=== PATIENT | female | born 1940 | race Caucasian/White ===

== ENCOUNTER 2020-01-17 12:15 | Outpatient (CLI) | payer OTHER, SELFPAY ==
[2020-01-17 13:08] LABS: Basophils Absolute Auto 0.1 K/mm3 (0.0-0.1); Basophils Percent Auto 0.7 % (0.2-1.2); Eosinophils Absolute Auto 0.2 K/mm3 (0-0.3); Hematocrit 33.6 % (37.0-47.0); Hemoglobin 10.2 g/dL (12.0-15.0); Immature Granulocyte Absolute 0.07 K/mm3 (0.00-0.031); Immature Granulocyte Percent A 0.7 % (0-0.5); Lymphocytes Absolute Auto 2.24 K/mm3 (0.9-3.2); Lymphocytes Percent Auto 23.5 % (18.3-44.2); Mean Corpuscular HGB Conc 30.4 g/dl (32-36); Mean Corpuscular Hemoglobin 29.7 pg (26-34); Mean Corpuscular Volume 97.7 fl (80-100); Mean Platelet Volume 9.3 fl (7.4-10.4); Monocytes Absolute Auto 0.8 K/mm3 (0.1-0.6); Monocytes Percent Auto 8.6 % (2.6-8.5); Neutrophils Absolute Auto 6.2 K/mm3 (1.3-6.7); Neutrophils Percent Auto 64.5 % (45.5-73.1); Platelet Count Result 460 k/mm3 (150-375); Red Blood Count 3.44 M/mm3 (4.2-5.4); Red Cell Distribution Width 13.2 % (11.5-14.5); White Blood Count 9.5 K/mm3 (4.5-10.0)
[2020-01-17 13:19] LABS: Alanine Aminotransferase 10 U/L (4-35); Albumin Level 4.3 g/dL (3.5-5.1); Alkaline Phosphatase 54 U/L (38-126); Aspartate Amino Transferase 17 U/L (14-36); Bilirubin,Total 0.3 mg/dL (0.2-1.3); Blood Urea Nitrogen 21 mg/dL (7-17); Calcium 9.7 mg/dL (8.4-10.2); Carbon Dioxide 25 mmol/L (22-30); Chloride 95 mmol/L (98-107); Estimated Glomerular Filt Rate 53; Glucose 123 mg/dL (65-105); Potassium 4.2 mmol/L (3.4-5.0); Sodium 138 mmol/L (137-145)
[2020-01-17 13:23] LABS: Hemoglobin A1C 6.1 % (<5.7)
== END 2020-01-17 12:16 | disposition home or self-care (01) ==
PROVIDERS: PCP Family Medicine; Visit Provider Family Medicine
DX: E11.40 Type 2 diabetes mellitus with diabetic neuropathy, unspecified (principal); I10 Essential (primary) hypertension
CPT/HCPCS: 36415; 80053; 83036; 85025

== ENCOUNTER 2020-01-24 16:19 | Inpatient (IN) | payer OTHER, SELFPAY ==
--- NOTE | ~2020-01-24 | CT_ITS ---
EXAMINATION: CT abdomen pelvis w con EXAM DATE: 01/24/2020 19:58 INDICATION: Left lower quadrant pain. Diarrhea. TECHNIQUE: Spiral CT of the abdomen and pelvis was performed following intravenous injection of 100 m L Omnipaque 350. Axial, coronal and sagittal images were reviewed. The dose-length product (DLP) fo r this examination was 321.30 mGy-cm. The exposure was tailored according to patient size (auto mA e xposure control), and iterative reconstruction (ASIR) was used as additional dose reduction technique . Comparison is made to prior examination from 11/18/2014. FINDINGS: The liver, spleen, adrenal glands and pancreas are unremarkable. Some dense layering fluid in the gallbladder which is otherwise unremarkable. Portal vein measures 18 mm in diameter, dilated. This could indicate portal hypertension. Portal and splenic veins are patent. Kidneys enhance symme trically. There is no hydronephrosis. The uterus is not identified and has likely been surgically resected. The bladder is collapsed at time of imaging limiting evaluation. There is no retroperiton eal or pelvic lymphadenopathy. There is moderate scattered arteriosclerotic disease. Pain pump. The appendix is not positively visualized. There is no pericecal inflammatory change to suggest appe ndicitis. There are surgical changes consistent with Niesen fundoplication. Moderately distended rectal vault up to 7 cm with fluid in the sigmoid colon proximal to this. There is extensive sigmoid predominant colonic diverticulosis. There is no adjacent inflammatory change to suggest diverticulit is. No free intraperitoneal gas. The heart is normal in size. There are no pericardial or pleural effusions. The lung bases are unremarkable. There are no osteoblastic or osteolytic lesions identi fied. Chronic degenerative bone changes. IMPRESSION: 1. Moderately distended rectal vault with stool, colonic fluid proximal to this. 2. Extensive colonic diverticulosis. Reviewed, dictated and finalized at location A. N PRODUCER IMPRESSION: 1. Moderately distended rectal vault with stool, colonic fluid proximal to thi s. 2. Extensive colonic diverticulosis.
[2020-01-24 17:03] VITALS: BP 158/65; PULSE 108; RESP 18; TEMP 36.6; O2SAT 100
[2020-01-24 17:15] LABS: Basophils Absolute Auto 0.1 K/mm3 (0.0-0.1); Basophils Percent Auto 0.6 % (0.2-1.2); Eosinophils Percent Auto 0.3 % (0-4.4); Hemoglobin 10.3 g/dL (12.0-15.0); Immature Granulocyte Absolute 0.08 K/mm3 (0.00-0.031); Immature Granulocyte Percent A 0.6 % (0-0.5); Lymphocytes Absolute Auto 1.59 K/mm3 (0.9-3.2); Lymphocytes Percent Auto 11.2 % (18.3-44.2); Mean Corpuscular HGB Conc 31.2 g/dl (32-36); Mean Corpuscular Hemoglobin 30.1 pg (26-34); Mean Corpuscular Volume 96.5 fl (80-100); Mean Platelet Volume 8.9 fl (7.4-10.4); Monocytes Percent Auto 6.9 % (2.6-8.5); Neutrophils Absolute Auto 11.4 K/mm3 (1.3-6.7); Neutrophils Percent Auto 80.4 % (45.5-73.1); Platelet Count Result 489 k/mm3 (150-375); Red Blood Count 3.42 M/mm3 (4.2-5.4); Red Cell Distribution Width 13.3 % (11.5-14.5); White Blood Count 14.2 K/mm3 (4.5-10.0)
[2020-01-24 17:23] LABS: Alanine Aminotransferase 12 U/L (4-35); Albumin Level 4.5 g/dL (3.5-5.1); Alkaline Phosphatase 57 U/L (38-126); Aspartate Amino Transferase 16 U/L (14-36); Bilirubin,Total 0.3 mg/dL (0.2-1.3); Blood Urea Nitrogen 24 mg/dL (7-17); Calcium 10.5 mg/dL (8.4-10.2); Carbon Dioxide 32 mmol/L (22-30); Chloride 98 mmol/L (98-107); Estimated Glomerular Filt Rate 48; Glucose 147 mg/dL (65-105); Lipase 20 U/L (23-300); Potassium 4.7 mmol/L (3.4-5.0); Sodium 143 mmol/L (137-145)
--- NOTE | 2020-01-24 18:37 | PC.NURSE ---
Pt states since yesterday she has had diarrhea. Pt states she has had several episodes and can not make it to the bathroom in time. Pt states she has no nausea or vomiting. Pt states she has abd cramping and then diarrhea happens and pain stops. Pt states immodium did not stop or slow down the diarrhea. Pt is A&Ox4. Pt appears in NAD. Pt has family at bedside. Pt BSx4. Pt abd soft, non tender and non distended.
--- NOTE | 2020-01-24 18:53 | ED.NAVMDI ---
HPI - Nausea/Vomiting/Diarrhea General Chief complaint: Nausea/Vomiting/Diarrhea Stated complaint: diarrhea Time Seen by Provider: 01/24/20 18:45 Source: patient, family and RN notes reviewed Mode of arrival: other Limitations: no limitations History of Present Illness HPI Narrative: Pt is an 79 y/o female who presents to the ED with c/o diarrhea that began yesterday. She describes her diarrhea as dark in color. Pt denies any recent abx use, being around sick contacts, and taking any medication for her sx. Pt has a scheduled colonoscopy with Dr. Seay, but she states that she has not started the medication to prepare for the colonoscopy. Pt went to her PCP today for a regular appointment. Pt also reports fecal incontinence, but denies blood in her stools, weakness, syncope, and lightheadedness. elicited complaint: diarrhea Onset (ago): day(s) (1) Description of vomiting: none Description of diarrhea: other (dark in color) Associated nausea: No Associated abdominal pain: No Location of pain: none Associated symptoms: fecal incontinence Treatment prior to arrival: none Related Data Home Medications Medication Instructions Recorded Confirmed bupropion HCl 150 mg tablet,12 hr 150 mg PO QAM 11/23/19 11/25/19 sustained-release cetirizine 10 mg tablet 5 mg PO DAILY PRN 11/23/19 11/25/19 cilostazol 100 mg tablet 100 mg PO BID 11/23/19 11/25/19 ergocalciferol (vitamin D2) 1,250 1,250 mcg PO WEEKLY 11/23/19 11/25/19 mcg (50,000 unit) capsule hydrocodone 10 mg-acetaminophen 1 tablet PO Q8H PRN 11/23/19 11/25/19 325 mg tablet levothyroxine 75 mcg tablet 75 mcg PO DAILY 11/23/19 11/25/19 lisinopril 40 mg tablet 40 mg PO DAILY 11/23/19 11/25/19 meclizine 25 mg tablet 25 mg PO BID 11/23/19 11/25/19 pen needle, diabetic 31 gauge x #30 each 11/23/19 11/25/19 5/16 sertraline 25 mg tablet 25 mg PO DAILY 11/23/19 11/25/19 trazodone 50 mg tablet 50 mg PO TID 11/23/19 11/25/19 Allergies Allergy/AdvReac Type Severity Reaction Status Date / Time No Known Allergies Allergy Verified 01/24/20 17:06 Review of Systems Review of Systems: All systems reviewed & are unremarkable except as noted in HPI and below Cardiovascular: Cardiovascular: Denies lightheadedness Gastrointestinal: Gastrointestinal: Denies hematochezia, Reports diarrhea and Reports other (fecal incontinence) Neurologic: Denies syncope and Denies weakness REPLACED BY [facility] Past Medical History Medical History (Updated 01/24/20 @ 20:42 by Tim Dee MD) Abdominal pain Abnormality of gait and mobility Arteriosclerosis of both carotid arteries Arthritis Benign reactive hypertension Breast cancer Cerebral atherosclerosis Chronic intractable pain CVA (cerebrovascular accident) DDD (degenerative disc disease) Depression Fusion of lumbar spine GERD (gastroesophageal reflux disease) HTN (hypertension) Hyperlipidemia Iron deficiency anemia secondary to blood loss (chronic) Neutropenia Opioid dependence Osteoporosis Peripheral vascular disease, unspecified Physical debility Pneumonia Presence of intrathecal pump Seasonal allergies Spinal stenosis Type 2 diabetes mellitus with diabetic polyneuropathy UTI (urinary tract infection) Surgical History Surgical History (Updated 01/24/20 @ 19:50 by Dyan Collado) H/O abdominal surgery pain pump on left abdomen H/O left mastectomy History of bladder surgery bladder suspension History of hysterectomy History of spinal surgery x2 on lumbar spine, x2 on cervical spine History of total knee arthroplasty bilateral Family History Family History (Updated 09/02/15 @ 10:06 by DOCTOR UNKNOWN) Mother Patient's mother is Father Patient's father is Other Family history of cardiovascular disease Family history of heart disease in male family member before age 55 Hypertension Social History Social History (Updated 01/17/20 @ 11:14 by Davina Machado) So
[2020-01-24] MEDS: SODIUM CHLORIDE 0.9% IV 1,000 ML 999 ML IV CONT (19:14)
--- NOTE | 2020-01-24 19:34 | PC.NURSE ---
Patient incont mod watery brown stool, patient given bassam care and linen change.
[2020-01-24 19:35] VITALS: BP 174/90; PULSE 91; RESP 18; O2SAT 97
[2020-01-24 19:53] LABS: Add Urine Microscopic? YES; Appearance Urine Clear (Clear); Bacteria Urine 2+ /hpf; Bilirubin Urine Negative (Negative); Blood Urine 1+ (Negative); Color Urine Yellow (Yellow); Glucose Urine UA Negative (Negative); Ketones Urine Trace mg/dL (Negative); Leukocyte Esterase Ur 1+ LEU/UL (Negative); Mucus Urine Rare /lpf; Nitrate Urine Positive (Negative); Protein Urine 2+ mg/dL (Negative); Squamous Epithelial Cell Urine Rare /hpf (Few); Urobilinogen Urine Negative mg/dL (<2.0); WBC Urine 16-20 /hpf
[2020-01-24 19:54] LABS: Specific Grav Ur 1.032 (1.001-1.035)
[2020-01-24 19:58] LABS: IFOB Positive Control Positive; Immunochemical Fecal Occult Bl Negative (N)
[2020-01-24] MEDS: LOPERAMIDE HCL 2 MG CAPSULE 4 MG PO (20:56)
--- NOTE | 2020-01-24 22:03 | PC.NURSE ---
Patient update given to Eileen RAMAN at assisted and patient being admitted to hospital.
[2020-01-24 22:15] VITALS: BP 169/87; PULSE 84; RESP 14; O2SAT 96
--- NOTE | 2020-01-24 22:24 | PC.NURSE ---
Patient report faxed to med-surg 3rd foor.
[2020-01-24 22:57] VITALS: BP 163/84; PULSE 82; RESP 16; O2SAT 96
[2020-01-24 23:10] VITALS: BP 179/83; PULSE 76; RESP 18; TEMP 36.7; O2SAT 98; BMI 20.1
--- NOTE | 2020-01-24 23:15 | ADMGEN ---
This patient, Brandi Shepherd, was admitted to 3 Med Surg Room 317-02 at 2305. Patient/family oriented to hospital policies and general routines including ID bracelet, bed and alarms, visiting hours, pain management, procedures, bathroom and other care routines, personal items, smoking policy, room service/diet, and visiting hours. Valuables list has been completed. Information on how to activate the Rapid Response Team has been discussed. Patient/Family are encouraged to report perceived risks to care and to ask questions if they do not understand what they are told or what they should do.
[2020-01-25] VITALS (9 sets, daily range): BP systolic 168–180; BP diastolic 78–85; PULSE 64–88; RESP 16–18; TEMP 36.6–36.8; O2SAT 95–99
[2020-01-25] MEDS: LACTATED RINGERS 1,000 ML 150 ML IV CONT ×2 (00:20→11:08)
[2020-01-25 08:11] LABS: Glucose Point of Care 134 (65-105)
--- NOTE | 2020-01-25 12:09 | PM.IMHP ---
H&P: HPI History of Present Illness Chief complaint: diarrhea uti dehydration Narrative: Brandi Shepherd is a 79 year old female who presented to the ED for fecal incontinence and diarrhea. The patient states she has been having diarrhea on and off for a month. She has on average 5-10 bowel movements a day. She does admit to some cramps when this is happening. Before this month, she has not had incontinence before. She went to see Dr. Seay about this and says he ordered her some tests but she was unable to wait and came into the hospital. She says her stool is a little darker brown than normal but has not noticed any black stools or blood. She said she thinks she had a subjective fever 2 days ago but did not take her temperature. She denies nausea, vomiting, shortness of breath, chest pain, sick contacts, travel outside the country, drinking well water, history of C diff, being on antibiotics in the last 3 months, rashes, dysuria or wounds. She says she does not take oral narcotics but has a pain pump with morphine that she gets refilled every 3 months due to chronic back pain. She is a diabetic and cannot tell me her range but says it is usually around 120-180. She lives at home with her son and has not had any recent falls. She usually uses a walker or cane. Pt has some problems recalling information. She does not know when her last colonoscopy was. I called Mehul, her son and [place], and he is unsure and says 'years ago'. He confirms that she has been having worsening problems with memory and likely has undiagnosed dementia. Review of Systems Review of Systems: All systems reviewed & are unremarkable except as noted in HPI and below [facility] Past Medical History Medical History (Updated 01/25/20 @ 12:38 by Lu Orellana PA-C) Abdominal pain Abnormality of gait and mobility Arteriosclerosis of both carotid arteries Arthritis Benign reactive hypertension Breast cancer Cerebral atherosclerosis Chronic intractable pain CVA (cerebrovascular accident) DDD (degenerative disc disease) Depression Dyspepsia Fusion of lumbar spine GERD (gastroesophageal reflux disease) HTN (hypertension) Hyperlipidemia Iron deficiency anemia secondary to blood loss (chronic) Malaise and fatigue Neutropenia Opioid dependence Osteoporosis Overflow incontinence Peripheral vascular disease, unspecified Physical debility Pneumonia Polypharmacy Presence of intrathecal pump Seasonal allergies Spinal stenosis Type 2 diabetes mellitus with diabetic polyneuropathy UTI (urinary tract infection) UTI (urinary tract infection) Surgical History Surgical History H/O abdominal surgery pain pump on left abdomen H/O left mastectomy History of bladder surgery bladder suspension History of hysterectomy History of spinal surgery x2 on lumbar spine, x2 on cervical spine History of total knee arthroplasty bilateral Family History Family History Mother Patient's mother is Father Patient's father is Other Family history of cardiovascular disease Family history of heart disease in male family member before age 55 Hypertension Social History Social History (Updated 01/25/20 @ 12:43 by Lu Orellana PA-C) Social History: Pt lives at home with her Son. She would like Mehul to be her surrogate decision maker if needed. I have spoken to him and he is her POA. Mehul and the patient would like to be a DNR. She does not smoke, drink, or do drugs. 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 smoker Second hand tobacco smoke exposure: No Alcohol intake: never Substance use: never Substance use type: does not use Gender identity (if verbalized by the patient): Female Spiritual care concerns: No Meds Home Medications and Allergies Home Medications Medication Instructions R
[2020-01-25 12:19] LABS: Glucose Point of Care 105 (65-105)
[2020-01-25 16:43] LABS: Glucose Point of Care 202 (65-105)
[2020-01-25] MEDS: LORATADINE 10 MG TABLET PO (18:11)
[2020-01-25] MEDS: polyethylene glycoL 3350 17 GM POWD.PACK PO (18:11)
[2020-01-25] MEDS: METHYLNALTREXONE 12 MG/0.6 ML VIAL SUB-Q (18:11)
[2020-01-25] MEDS: CLONIDINE HCL 0.1 MG TABLET PO ×2 (18:11→20:15)
[2020-01-25] MEDS: ATORVASTATIN 40 MG TABLET PO ×2 (18:17→18:18)
[2020-01-25] MEDS: INSULIN ASPART (*BKC) 100 UNITS/ML SUB-Q (18:20)
[2020-01-25] MEDS: AMITRIPTYLINE HCL 25 MG TABLET PO (20:15)
[2020-01-25] MEDS: TRAZODONE HCL 50 MG TABLET 100 MG PO (20:16)
[2020-01-25 22:16] LABS: Glucose Point of Care 116 (65-105)
[2020-01-26] VITALS (9 sets, daily range): BP systolic 118–195; BP diastolic 56–107; PULSE 61–77; RESP 16–18; TEMP 36.2–36.9; O2SAT 97–98
[2020-01-26] MEDS: LACTATED RINGERS 1,000 ML 150 ML IV CONT (05:48)
[2020-01-26] MEDS: LEVOTHYROXINE SODIUM 75 MCG TABLET PO (05:50)
[2020-01-26 06:29] LABS: Hematocrit 34.7 % (37.0-47.0); Hemoglobin 10.7 g/dL (12.0-15.0); Mean Corpuscular HGB Conc 30.8 g/dl (32-36); Mean Corpuscular Hemoglobin 29.8 pg (26-34); Mean Corpuscular Volume 96.7 fl (80-100); Platelet Count Result 450 k/mm3 (150-375); Red Blood Count 3.59 M/mm3 (4.2-5.4); Red Cell Distribution Width 13.3 % (11.5-14.5)
[2020-01-26 07:00] LABS: Glucose Point of Care 132 (65-105)
[2020-01-26 07:11] LABS: Blood Urea Nitrogen 15 mg/dL (7-17); Calcium 9.7 mg/dL (8.4-10.2); Carbon Dioxide 30 mmol/L (22-30); Chloride 101 mmol/L (98-107); Estimated CRCL calculation 51 ml/min; Estimated Glomerular Filt Rate > 60; Glucose 145 mg/dL (65-105); Potassium 4.1 mmol/L (3.4-5.0); Sodium 138 mmol/L (137-145)
[2020-01-26] MEDS: lisinopriL 20 MG TABLET 40 MG PO (07:51)
[2020-01-26] MEDS: CLONIDINE HCL 0.1 MG TABLET PO ×2 (07:52→20:51)
[2020-01-26] MEDS: LORATADINE 10 MG TABLET PO (07:52)
[2020-01-26] MEDS: METHYLNALTREXONE 12 MG/0.6 ML VIAL SUB-Q (07:55)
[2020-01-26] MEDS: polyethylene glycoL 3350 17 GM POWD.PACK PO ×2 (07:56→18:30)
--- NOTE | 2020-01-26 11:44 | WPDGICN ---
Assessment and Plan Assessment and plan (1) Overflow diarrhea: Code(s): R19.7 - Diarrhea, unspecified Status: Acute Assessment and Plan: history and physical exam consistent with overflow diarrhea. Continue with bowel regimen, she got relistor and removed fecal material from rectum this morning. Will proceed with colonoscopy, she also will need EGD because significant weight loss. (2) Weight loss: Code(s): R63.4 - Abnormal weight loss Status: Acute (3) Constipation: Qualifiers: Constipation type: other constipation type Qualified Code(s): K59.09 - Other constipation Code(s): K59.00 - Constipation, unspecified Status: Acute Assessment and Plan: probably exacerbated by narcotics, continue with medical treatment. (4) Spinal stenosis: Qualifiers: Spinal region: lumbar Neurogenic claudication status: unspecified Qualified Code(s): M48.061 - Spinal stenosis, lumbar region without neurogenic claudication Code(s): M48.00 - Spinal stenosis, site unspecified Status: Acute (5) Opioid dependence: Qualifiers: Substance use status: uncomplicated Qualified Code(s): F11.20 - Opioid dependence, uncomplicated Code(s): F11.20 - Opioid dependence, uncomplicated Status: Acute (6) Iron deficiency anemia secondary to blood loss (chronic): Code(s): D50.0 - Iron deficiency anemia secondary to blood loss (chronic) Status: Acute Assessment and Plan: will also proceed with EGD, no overt GIB, hb stable 10 (7) Colon, diverticulosis: Code(s): K57.30 - Diverticulosis of large intestine without perforation or abscess without bleeding Status: Acute GI Consult Note Consult date/time: 01/26/20 11:44 Reason for consult: bowel incontinence, weight loss HPI: Brandi Shepherd is a 79 year old female with history of DM, memory loss, chronic pain syndrome using narcotis and a pump who I met her just recently in the office because almost 1 month of bowel incontinence and weight loss. She is unsure if ever had scopes, also has chronic anemia with hb ~ 10. I was planning to get a CT scan a/p and also scopes as outpatient but she came to ER because more incontinence and large amount of diarrhea. CT scan showed previous Santiago, moderately distended rectal vault with stool, colonic fluid proximal to this and extensive colonic diverticulosis. She also was found to have UTI and admitted to the hospital. Now she is getting miralax, enema and also relistor. She had a rectal exam that revealed hard stool in rectal vault. She is tolerating diet. Review of Systems Constitutional: Constitutional: Denies headache(s) and Reports weight loss Eyes: Eyes: Denies blurry vision ENT: Reports Normal hearing present, Denies headache(s) and Denies neck pain Cardiovascular: Cardiovascular: Denies chest pain and Denies dyspnea Respiratory: Respiratory: Denies dyspnea Gastrointestinal: Gastrointestinal: Reports loose stools Genitourinary: Genitourinary: Denies dysuria Musculoskeletal: Musculoskeletal: Denies neck pain Integumentary/Breasts: Skin/Breast: Denies dry skin Neurologic: Reports Normal hearing present, Denies headache(s) and Denies weakness Psychiatric: Psychiatric: Denies anxiety Endocrine: Endocrine: Denies change in body appearance Hematologic/Lymphatic: Hematologic/Lymphatic: Denies easy bleeding Allergic/Immunologic: Allergic/Immunologic: Denies urticaria [facility] Past Medical History Medical History (Updated 01/26/20 @ 11:50 by Raymundo Nova MD) Abdominal pain Abnormality of gait and mobility Arteriosclerosis of both carotid arteries Arthritis Benign reactive hypertension Breast cancer Cerebral atherosclerosis Chronic intractable pain Colon, diverticulosis CVA (cerebrovascular accident) DDD (degenerative disc disease) Depression Dyspepsia Fusion of lumbar spine GERD (gastroesophageal reflux d
[2020-01-26 12:51] LABS: Glucose Point of Care 199 (65-105)
--- NOTE | 2020-01-26 13:58 | PM.IMPN ---
Progress Note: A&P Assessment and Plan (1) Constipation: Qualifiers: Constipation type: other constipation type Qualified Code(s): K59.09 - Other constipation Code(s): K59.00 - Constipation, unspecified Status: Acute Assessment and Plan: -----patient appears to be constipated as there is a lot of stool on her CT. She was manually disimpacted earlier today by GI. I believe there is a plan for colonoscopy in the future. Continue MiraLax b.i.d., enema, and relistor since she does get narcotic pain medication through her intrathecal pump. Ifob negative. (2) Overflow diarrhea: Code(s): R19.7 - Diarrhea, unspecified Status: Acute Assessment and Plan: -----see above (3) Pyuria: Code(s): R82.81 - Pyuria Status: Acute Assessment and Plan: -----E coli growing in her urine culture. Not surprising with the amount of diarrhea she has been having. Await sensitivities. Leukocytosis has improved (4) HTN (hypertension) with goal to be determined: Code(s): I10 - Essential (primary) hypertension Status: Acute Assessment and Plan: -----blood pressure persistently elevated last 179/107. Continue home medications. I will start Norvasc tomorrow morning since she is persistently high. hydralazine p.r.n. as needed (5) Presence of intrathecal pump: Code(s): Z97.8 - Presence of other specified devices Status: Acute Assessment and Plan: -----will worsen constipation. Will need routine bowel regimen (6) Opioid dependence: Qualifiers: Substance use status: uncomplicated Qualified Code(s): F11.20 - Opioid dependence, uncomplicated Code(s): F11.20 - Opioid dependence, uncomplicated Status: Acute Assessment and Plan: -----see above. 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 Continue low sliding scale insulin and hypoglycemia protocol (8) Leukocytosis: Code(s): D72.829 - Elevated white blood cell count, unspecified Status: Acute Assessment and Plan: -----resolved. Could be due to possible UTI or acute phase reactant. Will monitor. No signs of septicemia (9) CKD (chronic kidney disease): Code(s): N18.9 - Chronic kidney disease, unspecified Status: Acute Assessment and Plan: -----chronic. (10) Hypothyroid: Code(s): E03.9 - Hypothyroidism, unspecified Status: Acute Assessment and Plan: -----continue levothyroxine. (11) Chronic anemia: Code(s): D64.9 - Anemia, unspecified Status: Acute Assessment and Plan: -----chronic and stable. Continue to monitor and transfuse p.r.n.. Subjective Date/time seen: 01/26/20 13:58 Interval history: Pt is a 79-year-old female here for significant constipation was seen today. Patient states that she still having a lot of diarrhea but no abdominal cramping. She said she saw Dr. Seay this morning and he was able to manually disimpact her and she feels a little better. She is still not having any dysuria for symptoms of UTI. She denies chest pain, fevers, shortness of breath, nausea, vomiting or leg swelling. Exam Narrative: Exam Narrative: General:Well developed well nourished patient resting comfortably in bed in no acute distress HEENT: Normocephalic, atraumatic, PERRL, Sclerae anicteric, oral mucosa moist with poor dentition. Neck: Supple Resp: CTA Heart: RRR. Telemetry shows sinus irregularity with occasional bigeminy A
[2020-01-26] MEDS: INSULIN ASPART (*BKC) 100 UNITS/ML SUB-Q (16:53)
[2020-01-26 17:24] LABS: Glucose Point of Care 220 (65-105)
[2020-01-26] MEDS: AMLODIPINE BESYLATE 5 MG TABLET PO (18:30)
[2020-01-26] MEDS: AMITRIPTYLINE HCL 25 MG TABLET PO (20:51)
[2020-01-26] MEDS: TRAZODONE HCL 50 MG TABLET 100 MG PO (20:58)
[2020-01-26 21:48] LABS: Glucose Point of Care 171 (65-105)
--- NOTE | 2020-01-27 03:35 | PC.NURSE ---
Daylight Savings Time For Daylight Savings Time Ending in the Fall - Clocks are moved back. For Daylight Savings Time Beginning in the Spring - Clocks are moved ahead. For [facility], the time of change occurs at 0200 hrs. Time is taken from the medical observer. This entry on the patient's chart recognizes the change in time reflected during documentation. Example: 2 entries for vital signs may be charted for 0200 hrs.
[2020-01-27] MEDS: LEVOTHYROXINE SODIUM 75 MCG TABLET PO (05:46)
[2020-01-27 06:00] VITALS: BP 156/78; PULSE 72; RESP 18; TEMP 36.8; O2SAT 95
[2020-01-27 06:29] LABS: Hematocrit 29.1 % (37.0-47.0); Hemoglobin 8.9 g/dL (12.0-15.0); Mean Corpuscular HGB Conc 30.6 g/dl (32-36); Mean Corpuscular Hemoglobin 29.8 pg (26-34); Mean Corpuscular Volume 97.3 fl (80-100); Mean Platelet Volume 9.2 fl (7.4-10.4); Platelet Count Result 396 k/mm3 (150-375); Red Blood Count 2.99 M/mm3 (4.2-5.4); Red Cell Distribution Width 13.6 % (11.5-14.5); White Blood Count 9.1 K/mm3 (4.5-10.0)
[2020-01-27 06:40] LABS: Blood Urea Nitrogen 14 mg/dL (7-17); Calcium 9.2 mg/dL (8.4-10.2); Carbon Dioxide 30 mmol/L (22-30); Chloride 103 mmol/L (98-107); Estimated CRCL calculation 45 ml/min; Estimated Glomerular Filt Rate > 60; Glucose 152 mg/dL (65-105); Potassium 3.6 mmol/L (3.4-5.0); Sodium 137 mmol/L (137-145)
[2020-01-27] MEDS: lisinopriL 20 MG TABLET 40 MG PO (08:52)
[2020-01-27] MEDS: AMLODIPINE BESYLATE 5 MG TABLET PO (08:52)
[2020-01-27] MEDS: CLONIDINE HCL 0.1 MG TABLET PO ×2 (08:52→20:23)
[2020-01-27] MEDS: LORATADINE 10 MG TABLET PO (08:53)
[2020-01-27] MEDS: METHYLNALTREXONE 12 MG/0.6 ML VIAL SUB-Q (08:53)
[2020-01-27 08:57] LABS: Glucose Point of Care 132 (65-105)
--- NOTE | 2020-01-27 09:49 | PM.IMPN ---
Progress Note: A&P Assessment and Plan (1) Constipation: Qualifiers: Constipation type: other constipation type Qualified Code(s): K59.09 - Other constipation Code(s): K59.00 - Constipation, unspecified Status: Acute Assessment and Plan: -----patient's constipation has improved and there is no longer any compaction noted on manual exam. Do believe she is going for colonoscopy tomorrow morning. Continue bowel regimen. Ifob negative. (2) Overflow diarrhea: Code(s): R19.7 - Diarrhea, unspecified Status: Acute Assessment and Plan: -----see above (3) HTN (hypertension) with goal to be determined: Code(s): I10 - Essential (primary) hypertension Status: Acute Assessment and Plan: -----blood pressure persistently throughout her stay. Last blood pressure 156/78.. Continue home medications. Norvasc has been started today and seems to be doing well on it. Hydralazine p.r.n. as needed (4) Presence of intrathecal pump: Code(s): Z97.8 - Presence of other specified devices Status: Acute Assessment and Plan: -----will worsen constipation. Will need routine bowel regimen (5) Opioid dependence: Qualifiers: Substance use status: uncomplicated Qualified Code(s): F11.20 - Opioid dependence, uncomplicated Code(s): F11.20 - Opioid dependence, uncomplicated Status: Acute Assessment and Plan: -----see above. 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 Continue low sliding scale insulin and hypoglycemia protocol (7) Leukocytosis: Code(s): D72.829 - Elevated white blood cell count, unspecified Status: Acute Assessment and Plan: -----resolved. Could be due to possible UTI or acute phase reactant. Will monitor. No signs of septicemia (8) CKD (chronic kidney disease): Code(s): N18.9 - Chronic kidney disease, unspecified Status: Acute Assessment and Plan: -----chronic. (9) Hypothyroid: Code(s): E03.9 - Hypothyroidism, unspecified Status: Acute Assessment and Plan: -----continue levothyroxine. (10) Chronic anemia: Code(s): D64.9 - Anemia, unspecified Status: Acute Assessment and Plan: -----chronic and stable. Continue to monitor and transfuse p.r.n.. (11) UTI (urinary tract infection): Code(s): N39.0 - Urinary tract infection, site not specified Status: Acute Assessment and Plan: -----E coli growing in the urine culture. Patient has had significant diarrhea so this not surprising. Sensitivities pending. Will continue ceftriaxone at this time. White blood cell count now within normal limits. Subjective Date/time seen: 01/27/20 09:49 Interval history: Pt is a 79-year-old female here for significant constipation was seen today. Patient has no complaints today and said her diarrhea has improved. She has no abdominal pain. She is eating and drinking well. She feels much better. Pt denies nausea, vomiting, fevers, chills, chest pain, or shortness of breath. Exam Narrative: Exam Narrative: General:Well developed well nourished patient resting comfortably in bed in no acute distress HEENT: Normocephalic, atraumatic, PERRL, Sclerae anicteric, oral mucosa moist with poor dentition. Neck: Supple Resp: CTA Heart: RRR. Abd: Soft, nontender. No pain to palpation. Positive bowel sounds Skin: Warm and dry Extremities: No swelling, erythema or pain to palpation :
--- NOTE | 2020-01-27 12:11 | WPDGIPROGNO ---
Progress Note: A&P Assessment and Plan (1) Early satiety: Code(s): R68.81 - Early satiety Status: Acute Assessment and Plan: weight loss and decrease appetite. Will proceed with EGD tomorrow. (2) Constipation: Qualifiers: Constipation type: other constipation type Qualified Code(s): K59.09 - Other constipation Code(s): K59.00 - Constipation, unspecified Status: Acute Assessment and Plan: improved, narcotic induced (3) Overflow diarrhea: Code(s): R19.7 - Diarrhea, unspecified Status: Acute (4) Weight loss: Code(s): R63.4 - Abnormal weight loss Status: Acute Assessment and Plan: will proceed with colonoscopy tomorrow, will give bowel prep today (5) Chronic anemia: Code(s): D64.9 - Anemia, unspecified Status: Acute (6) Colon, diverticulosis: Code(s): K57.30 - Diverticulosis of large intestine without perforation or abscess without bleeding Status: Acute (7) UTI (urinary tract infection): Qualifiers: Urinary tract infection type: site unspecified Hematuria presence: without hematuria Qualified Code(s): N39.0 - Urinary tract infection, site not specified Code(s): N39.0 - Urinary tract infection, site not specified Status: Acute Assessment and Plan: on treatment now. Subjective Date/time seen: 01/27/20 12:11 Interval history: she is feeling better, no more incontinence but still with poor appetite. Review of Systems Review of Systems: All systems reviewed & are unremarkable except as noted in HPI and below Exam Const: General: comfortable and no acute distress Nutritional Appearance: cachectic and thin HENMT: General nose exam: Normal nares present Eyes: General: appearance normal, both eyes and all related structures Neck: Neck: no JVD Resp: Auscultation: clear to auscultation bilaterally Cardio: Rate: regular rate Rhythm: regular rhythm GI: Inspection: non-distended GI Palp: Yes Soft to palpation, No Tenderness to palpation present (GI) and No Guarding due to palpation present (GI) Skin: General skin exam: normal color Neuro: General: gait normal Speech: normal speech Extrem: General: normal to inspection Psych: Mental Status: mental status grossly normal Objective Data Vital Signs Vital Signs: Vital Signs - 24 hr 01/26/20 12:00 01/26/20 14:00 01/26/20 16:00 Temperature 98.1 F Pulse Rate 73 76 77 Respiratory Rate 18 Blood Pressure 170/75 H Pulse Oximetry 98 01/26/20 22:00 01/26/20 23:40 01/27/20 06:00 Temperature 98.5 F 98.3 F Pulse Rate 61 72 Respiratory Rate 16 18 Blood Pressure 195/87 H 118/56 L 156/78 H Pulse Oximetry 97 95 Intake/Output Intake/Output: Intake & Output 01/24/20 01/25/20 01/26/20 01/28/20 23:59 23:59 23:59 00:59 Intake Total 1050 3460 1485 700 Output Total 900 Balance 1050 2560 1485 700 Meds/Results Medications: Active Medications Generic Name Dose Route Start Last Admin Trade Name Freq PRN Reason Stop Dose Admin Amitriptyline HCl 25 mg 01/25/20 21:00 01/26/20 20:51 Elavil PO 25 mg HS CHAS Administration Amlodipine Besylate 5 mg 01/26/20 09:00 01/27/20 08:52 Norvasc PO 5 mg QAM CHAS Administration Atorvastatin Calcium 40 mg 01/25/20 18:00 01/25/20 18:18 Lipitor PO 40 mg QPM CHAS Administration Bisacodyl 20 mg 01/27/20 18:00 Dulcolax Tab PO 01/27/20 18:01 ONCE ONE Clonidine HCl 0.1 mg 01/25/20 09:00 01/27/20 08:52 Catapres PO 0.1 mg Q12HR CHAS Administration Dextrose 12.5 gm 01/25/20 09:16 Dextrose 50% Syringe IV PUSH PRN PRN Hypoglycemia Protocol Glucagon 1 mg 01/25/20 09:16 Glucagon For Inj IM PRN PRN Hypoglycemia Protocol Glucose 15 gm 01/25/20 09:16 Glutose 15 PO PRN PRN Hypoglycemia Protocol Hydralazine HCl 10 mg 01/25/20 13:05 Apresoline Hcl
[2020-01-27] MEDS: polyethylene glycoL 3350 17 GM POWD.PACK PO ×2 (12:28→18:00)
[2020-01-27 12:35] LABS: Glucose Point of Care 170 (65-105)
[2020-01-27 14:00] VITALS: BP 116/60; PULSE 60; RESP 16; TEMP 36.6; O2SAT 97
[2020-01-27] MEDS: PEG (High)/E-LYTE SOLN 4,000 ML BTL 4000 ML PO (18:00)
[2020-01-27] MEDS: ATORVASTATIN 40 MG TABLET PO (18:00)
[2020-01-27] MEDS: BISACODYL 5 MG TABLET EC 20 MG PO (18:05)
[2020-01-27 18:29] LABS: Glucose Point of Care 146 (65-105)
[2020-01-27] MEDS: AMITRIPTYLINE HCL 25 MG TABLET PO (20:23)
[2020-01-27 22:00] VITALS: BP 154/67; PULSE 66; RESP 18; TEMP 36.7; O2SAT 96
[2020-01-27 22:56] LABS: Glucose Point of Care 188 (65-105)
[2020-01-28] VITALS (8 sets, daily range): BP systolic 144–182; BP diastolic 61–77; PULSE 59–69; RESP 16–22; TEMP 36.6–37; O2SAT 82–99
[2020-01-28] MEDS: LEVOTHYROXINE SODIUM 75 MCG TABLET PO (05:24)
[2020-01-28] MEDS: MAGNESIUM CITRATE 300 ML BTL PO (05:24)
[2020-01-28 06:41] LABS: Hematocrit 31.6 % (37.0-47.0); Hemoglobin 9.9 g/dL (12.0-15.0)
[2020-01-28 06:56] LABS: Blood Urea Nitrogen 13 mg/dL (7-17); Calcium 9.1 mg/dL (8.4-10.2); Carbon Dioxide 28 mmol/L (22-30); Chloride 102 mmol/L (98-107); Estimated CRCL calculation 51 ml/min; Estimated Glomerular Filt Rate > 60; Glucose 144 mg/dL (65-105); Potassium 3.2 mmol/L (3.4-5.0); Sodium 139 mmol/L (137-145)
[2020-01-28 07:08] LABS: Prothrombin Time 12.9 Seconds (11.1-14.7)
[2020-01-28 08:27] LABS: Glucose Point of Care 140 (65-105)
[2020-01-28] MEDS: KCL 20 MEQ/SW 100 ML 100 ML 50 MEQ IVPB (10:04)
[2020-01-28] MEDS: LACTATED RINGERS 1,000 ML 150 ML IV CONT (12:55)
--- NOTE | 2020-01-28 12:59 | WPDANESEPPF ---
Anes - Initial Pre Proc Eval Procedure: Operation Date: 01/28/20 12:30 Proposed Procedures p Esophagogastroduodenoscopy & Colonoscopy - Raymundo Nova MD Date/Time: 01/28/20 12:59 Surgeon: Lu Orellana PA-C Pre Op Diagnosis: diarrhea uti dehydration Patient Data Age: 79 Gender: F Height: 5 ft 7 in Weight: 58.3 kg Last Vital Signs Temp 98.6 F 01/28/20 12:46 Pulse 67 01/28/20 12:46 Resp 16 01/28/20 12:46 BP 154/72 H 01/28/20 12:46 Pulse Ox 95 01/28/20 12:46 Allergies Allergy/AdvReac Type Severity Reaction Status Date / Time No Known Allergies Allergy Verified 01/24/20 17:06 Home Medications Medication Instructions Recorded Confirmed Type metoclopramide HCl 10 mg tablet 10 mg PO Q6H PRN #360 tablet 10/01/19 01/25/20 Rx atorvastatin 40 mg tablet 40 mg PO QPM #90 tablet 11/20/19 01/25/20 Rx metformin 1,000 mg tablet 1,000 mg PO BID #180 tablet 11/22/19 01/25/20 Rx cetirizine 10 mg tablet 10 mg PO DAILY 11/23/19 01/25/20 History cilostazol 100 mg tablet 100 mg PO BID 11/23/19 01/25/20 History hydrocodone 10 mg-acetaminophen 1 tablet PO TID PRN 11/23/19 01/25/20 History 325 mg tablet levothyroxine 75 mcg tablet 75 mcg PO DAILY 11/23/19 01/25/20 History lisinopril 40 mg tablet 40 mg PO DAILY 11/23/19 01/25/20 History clonidine HCl 0.1 mg tablet 0.1 mg PO BID #60 tablet 01/17/20 01/25/20 Rx polysaccharide iron complex 150 mg 150 mg PO BID #60 cap 01/17/20 01/25/20 Rx iron capsule amitriptyline 25 mg PO HS 01/25/20 01/25/20 History docusate sodium 100 mg PO DAILY 01/25/20 01/25/20 History oxycodone-acetaminophen 1 tablet PO Q6H PRN 01/25/20 01/25/20 History trazodone 100 mg PO HS PRN 01/25/20 01/25/20 History Laboratory Tests 01/27/20 01/27/20 01/28/20 17:59 20:27 06:10 Hgb 9.9 g/dL L g/dL (12.0-15.0) Hct 31.6 % L % (37.0-47.0) PT INR Sodium Potassium Chloride Carbon Dioxide BUN Creatinine Estim Creat Clear Calc Estimated GFR Glucose POC Capillary Glucose 146 mg/dl H mg/dl 188 mg/dl H mg/dl (65-105) (65-105) Calcium 01/28/20 01/28/20 01/28/20 06:10 06:10 08:19 Hgb Hct PT 12.9 Seconds Seconds (11.1-14.7) INR 1.0 Sodium 139 mmol/L mmol/L (137-145) Potassium 3.2 mmol/L L mmol/L (3.4-5.0) Chloride 102 mmol/L mmol/L (98-107) Carbon Dioxide 28 mmol/L mmol/L (22-30) BUN 13 mg/dL mg/dL (7-17) Creatinine 0.70 mg/dL mg/dL (0.7-1.0) Estim Creat Clear Calc 51 ml/min ml/min Estimated GFR > 60 (59 - ) Glucose 144 mg/dL H mg/dL (65-105) POC Capillary Glucose 140 mg/dl H mg/dl (65-105) Calcium 9.1 mg/dL mg/dL (8.4-10.2) Patient hx anesthesia problems: none Family hx anesthesia problems: none PMFSH Past Medical History Medical History (Updated 01/27/20 @ 12:14 by Raymundo Nova MD) Abdominal pain Abnormality of gait and mobility Arteriosclerosis of both carotid arteries Arthritis Benign reactive hypertension Breast cancer Cerebral atherosclerosis Chronic intractable pain Colon, diverticulosis CVA (cerebrovascular accident) DDD (degenerative disc disease) Depression Dyspepsia Early satiety Fusion of lumbar spine GERD (gastroesophageal reflux disease) HTN (hypertension) Hyperlipidemia Iron deficiency anemia secondary to blood loss (chronic) Malaise and fatigue Neutropenia Opioid dependence Osteoporosis Overflow incontinence Peripheral vascular disease, unspecified Physical debility Pneumonia Polypharmacy Presence of intrathecal pump Seasonal allergies Spinal stenosis Type 2 diabetes mellitus with diabetic polyneuropathy UTI (urinary tract infection) UTI (urinary tract infection)
--- NOTE | 2020-01-28 14:12 | PCOTNOTE ---
Patient unavailable at time attempted to be seen for Occupational Therapy, patient in procedure. Will continue plan of care tomorrow, 01/29/20.
--- NOTE | 2020-01-28 15:00 | PC.NURSE ---
To GI lab at 1200
--- NOTE | 2020-01-28 15:00 | PC.NURSE ---
Returned from GI lab at 4536
[2020-01-28] MEDS: AMLODIPINE BESYLATE 5 MG TABLET PO (15:02)
[2020-01-28] MEDS: LORATADINE 10 MG TABLET PO (15:03)
[2020-01-28] MEDS: CLONIDINE HCL 0.1 MG TABLET PO ×2 (15:03→21:26)
[2020-01-28] MEDS: lisinopriL 20 MG TABLET 40 MG PO (15:03)
[2020-01-28] MEDS: METHYLNALTREXONE 12 MG/0.6 ML VIAL SUB-Q (15:03)
[2020-01-28] MEDS: hydrALAZINE HCL 20 MG/ML VIAL 10 MG IV PUSH (16:54)
--- NOTE | 2020-01-28 16:57 | PM.IMPN ---
Progress Note: A&P Assessment and Plan (1) Constipation: Qualifiers: Constipation type: other constipation type Qualified Code(s): K59.09 - Other constipation Code(s): K59.00 - Constipation, unspecified Status: Acute Assessment and Plan: -----patient's constipation has improved and there is no longer any compaction noted on manual exam or colonoscopy. Will need a routine bowel regimen at discharge (2) Overflow diarrhea: Code(s): R19.7 - Diarrhea, unspecified Status: Acute Assessment and Plan: -----see above (3) HTN (hypertension) with goal to be determined: Code(s): I10 - Essential (primary) hypertension Status: Acute Assessment and Plan: -----blood pressure has been persistently elevated throughout her stay. Her last blood pressure after anesthesia was 182/75. Her home medications were given and this was checked an hour later and it is still running high. I spoke to the nurse who is going to give 10 mg of hydralazine at this time. She is not having any chest pain shortness of breath or headache. She was started on Norvasc during her stay and if she continues to run high outside the bassam-procedure period this could be increased. (4) Presence of intrathecal pump: Code(s): Z97.8 - Presence of other specified devices Status: Acute Assessment and Plan: -----will worsen constipation. Will need routine bowel regimen (5) Opioid dependence: Qualifiers: Substance use status: uncomplicated Qualified Code(s): F11.20 - Opioid dependence, uncomplicated Code(s): F11.20 - Opioid dependence, uncomplicated Status: Acute Assessment and Plan: -----see above. Will need bowel regimen (6) Type 2 diabetes mellitus with diabetic polyneuropathy: Qualifiers: Diabetes mellitus salvage determiner insulin use: with senior care use Qualified Code(s): E11.42 - Type 2 diabetes mellitus with diabetic polyneuropathy; Z79.4 - MCFP (current) use of insulin Code(s): E11.42 - Type 2 diabetes mellitus with diabetic polyneuropathy Status: Acute Assessment and Plan: -----last glucose 140. Continue low sliding scale insulin and hypoglycemia protocol (7) Leukocytosis: Code(s): D72.829 - Elevated white blood cell count, unspecified Status: Acute Assessment and Plan: -----resolved. Could be due to possible UTI or acute phase reactant. Will monitor. No signs of septicemia (8) CKD (chronic kidney disease): Code(s): N18.9 - Chronic kidney disease, unspecified Status: Acute Assessment and Plan: -----chronic. (9) Hypothyroid: Code(s): E03.9 - Hypothyroidism, unspecified Status: Acute Assessment and Plan: -----continue levothyroxine. (10) Chronic anemia: Code(s): D64.9 - Anemia, unspecified Status: Acute Assessment and Plan: -----chronic and stable. Continue to monitor and transfuse p.r.n.. (11) UTI (urinary tract infection): Qualifiers: Urinary tract infection type: site unspecified Hematuria presence: without hematuria Qualified Code(s): N39.0 - Urinary tract infection, site not specified Code(s): N39.0 - Urinary tract infection, site not specified Status: Acute Assessment and Plan: -----E coli growing in the urine culture. Patient has had significant diarrhea so this not surprising. Sensitivities pending and if they are not back by tomorrow would suggest calling the lab to see if there is a problem with computer system. For now, will continue ceftriaxone at this time. White blood cell count now within normal limits. (12) Dizziness: Code(s): R42 - Dizziness and giddiness Status: Acute Assessment and Plan: -----acute on chronic. Likely worsened after bowel prep. Will do SCDs. If she is still dizzy tomorrow would alda
[2020-01-28] MEDS: ATORVASTATIN 40 MG TABLET PO (17:38)
[2020-01-28 17:47] LABS: Glucose Point of Care 147 (65-105)
[2020-01-28] MEDS: AMITRIPTYLINE HCL 25 MG TABLET PO (21:26)
[2020-01-28] MEDS: TRAZODONE HCL 50 MG TABLET 100 MG PO (21:27)
[2020-01-28] MEDS: PANTOPRAZOLE 40 MG TABLET PO (23:57)
[2020-01-29 00:04] LABS: Glucose Point of Care 264 (65-105)
[2020-01-29 03:05] VITALS: BP 118/58; BP 121/66; BP 125/65; PULSE 58; PULSE 60; PULSE 64; RESP 16; TEMP 36.4; O2SAT 95; O2SAT 96
[2020-01-29] MEDS: LEVOTHYROXINE SODIUM 75 MCG TABLET PO (06:20)
[2020-01-29 06:26] LABS: Hematocrit 28.7 % (37.0-47.0); Hemoglobin 8.8 g/dL (12.0-15.0)
[2020-01-29 06:29] LABS: Blood Urea Nitrogen 14 mg/dL (7-17); Calcium 8.6 mg/dL (8.4-10.2); Carbon Dioxide 28 mmol/L (22-30); Chloride 102 mmol/L (98-107); Estimated CRCL calculation 51 ml/min; Estimated Glomerular Filt Rate > 60; Glucose 147 mg/dL (65-105); Magnesium 1.8 mg/dL (1.6-2.3); Phosphorus 3.5 mg/dL (2.5-4.5); Potassium 3.7 mmol/L (3.4-5.0); Sodium 137 mmol/L (137-145)
[2020-01-29 08:20] VITALS: BP 134/67; PULSE 58; RESP 16; TEMP 36.7; O2SAT 95
--- NOTE | 2020-01-29 08:23 | WPDANESPN ---
Anes - Prog Note Post-Op Date/Time: 01/29/20 08:23 Cardiovascular status: normal Respiratory status: normal Airway patency: baseline Mental status: baseline Post-Op hydration status: normal Vital Signs: Last Vital Signs Temp 36.7 C 01/29/20 08:20 Pulse 58 L 01/29/20 08:20 Resp 16 01/29/20 08:20 BP 134/67 01/29/20 08:20 Pulse Ox 95 01/29/20 08:20 I/O: Intake & Output 01/28/20 01/29/20 01/29/20 23:59 07:59 15:59 Intake Total 410 150 Output Total 800 900 Balance -390 -750 Laboratory Tests 01/29/20 05:53 01/29/20 05:53 01/28/20 01/28/20 01/28/20 08:19 17:27 23:59 Hgb Hct Sodium Potassium Chloride Carbon Dioxide BUN Creatinine Estim Creat Clear Calc Estimated GFR Glucose POC Capillary Glucose 140 H 147 H 264 H Calcium Phosphorus Magnesium 01/29/20 01/29/20 05:53 05:53 Hgb 8.8 L Hct 28.7 L Sodium 137 Potassium 3.7 Chloride 102 Carbon Dioxide 28 BUN 14 Creatinine 0.70 Estim Creat Clear Calc 51 Estimated GFR > 60 Glucose 147 H POC Capillary Glucose Calcium 8.6 Phosphorus 3.5 Magnesium 1.8 Post-procedural complaints: none Patient Feedback: Patient satisfied with anesthetic care.
[2020-01-29 08:41] LABS: Glucose Point of Care 154 (65-105)
[2020-01-29] MEDS: LORATADINE 10 MG TABLET PO (09:20)
[2020-01-29] MEDS: PANTOPRAZOLE 40 MG TABLET PO (09:20)
[2020-01-29] MEDS: AMLODIPINE BESYLATE 5 MG TABLET PO (09:20)
[2020-01-29] MEDS: lisinopriL 20 MG TABLET 40 MG PO (09:20)
[2020-01-29] MEDS: CLONIDINE HCL 0.1 MG TABLET PO (09:20)
[2020-01-29 12:00] LABS: Glucose Point of Care 196 (65-105)
[2020-01-29] MEDS: METHYLNALTREXONE 12 MG/0.6 ML VIAL SUB-Q (12:41)
[2020-01-29] MEDS: polyethylene glycoL 3350 17 GM POWD.PACK PO (12:41)
--- NOTE | 2020-01-29 15:52 | PM.DS ---
DS: Diagnosis Admitting Diagnosis Admitting Diagnosis: Constipation, unspecified Discharge Diagnosis (1) Constipation: Qualifiers: Constipation type: other constipation type Qualified Code(s): K59.09 - Other constipation Code(s): K59.00 - Constipation, unspecified Status: Acute Assessment and Plan: Date of Service 01/29/20: Ms. Shepherd is an 79 yo F with history of type 2 diabetes mellitus, hypertension, intrathecal pain pump with morphine due to chronic back pain, who presented to the ER for evaluation of fecal incontinence and diarrhea. She reported having diarrhea on and off over the last 1 month, having 5 to 10 bowel movements per day, weight loss. She had an upcoming appointment to see Dr Seay as an outpatient regarding this but her symptoms were distressing and she presented to ED for evaluation. CT abdomen showed moderately distended rectal vault with stool and colonic fluid proximal to this. It was felt that her symptoms were related to constipation with overflow diarrhea. C diff negative. She was started on a bowel regimen and manual disimpaction was performed. Dr Seay was consulted and the patient underwent endoscopic evaluation. EGD revealed a gastric ulcer without bleeding, colonoscopy showed extensive diverticula without bleeding. Her constipation is likely related to her chronic narcotic use, and she was educated on the importance of following a regular bowel regimen. Dr Seay also recommended Linzess. She can follow up with Dr Seay, consider repeating EGD in [address] Seay. She was started on PPI therapy and instructed to avoid NSAIDs. Blood pressures were elevated throughout her stay maintained on her home clonidine, and amlodipine was added here, follow up with PCP for further blood pressure management. She was also noted to have a urinary tract infection, urine culture grew E coli and she was started on IV rocephin, discharged with oral cefdinir to complete the course. Follow up with PCP in 1 week. (2) Overflow diarrhea: Code(s): R19.7 - Diarrhea, unspecified Status: Acute Assessment and Plan: (3) HTN (hypertension) with goal to be determined: Code(s): I10 - Essential (primary) hypertension Status: Acute Assessment and Plan: Continue home clonidine. BPs remained elevated and she was additionally started on Norvasc, follow up with PCP. (4) Presence of intrathecal pump: Code(s): Z97.8 - Presence of other specified devices Status: Acute Assessment and Plan: Will contribute to constipation. She was educated on regular bowel regimen. Suggested miralax daily with dulcolax tabs and suppositories as needed. Can also get enemas OTC. Started on Linzess recommended by Dr Seay. (5) Opioid dependence: Qualifiers: Substance use status: uncomplicated Qualified Code(s): F11.20 - Opioid dependence, uncomplicated Code(s): F11.20 - Opioid dependence, uncomplicated Status: Acute Assessment and Plan: (6) UTI (urinary tract infection): Qualifiers: Urinary tract infection type: site unspecified Hematuria presence: without hematuria Qualified Code(s): N39.0 - Urinary tract infection, site not specified Code(s): N39.0 - Urinary tract infection, site not specified Status: Acute Assessment and Plan: Urine culture grew E coli. Treated with IV rocephin, discharged with oral cefdinir to complete the course. Follow up with PCP. (7) Type 2 diabetes mellitus with diabetic polyneuropathy: Qualifiers: Diabetes mellitus half-way insulin use: with exterminator helper termite use Qualified Code(s): E11.42 - Type 2 diabetes mellitus with diabetic polyneuropathy; Z79.4 - long-term (current) use of insulin
== END 2020-01-29 15:50 | disposition home or self-care (01) | DRG 690 ==
LOC: ANHED 22:04 → ANH3MEDSUR 22:39
PROVIDERS: Internal Medicine Gastroenterology; Physician Assistant; Admitting Provider Internal Medicine; Emergency Provider Emergency Medicine; PCP Family Medicine; Visit Provider Internal Medicine
PROC: 0DJ08ZZ Inspection of Upper Intestinal Tract, Via Natural or Artificial Opening Endoscopic (ICD-10-PCS; CPT 43235; principal; 2020-01-28 12:30)
DX: N39.0 Urinary tract infection, site not specified (principal); F11.20 Opioid dependence, uncomplicated; K25.3 Acute gastric ulcer without hemorrhage or perforation; B96.20 Unspecified Escherichia coli [E. coli] as the cause of diseases classified elsewhere; K59.03 Drug induced constipation; T40.605A Adverse effect of unspecified narcotics, initial encounter; K29.70 Gastritis, unspecified, without bleeding; K57.30 Diverticulosis of large intestine without perforation or abscess without bleeding; R19.7 Diarrhea, unspecified; E86.0 Dehydration; E11.42 Type 2 diabetes mellitus with diabetic polyneuropathy; E11.22 Type 2 diabetes mellitus with diabetic chronic kidney disease; I12.9 Hypertensive chronic kidney disease with stage 1 through stage 4 chronic kidney disease, or unspecified chronic kidney disease; N18.9 Chronic kidney disease, unspecified; E03.9 Hypothyroidism, unspecified; M19.90 Unspecified osteoarthritis, unspecified site; M81.0 Age-related osteoporosis without current pathological fracture; E11.51 Type 2 diabetes mellitus with diabetic peripheral angiopathy without gangrene; I73.9 Peripheral vascular disease, unspecified; D50.9 Iron deficiency anemia, unspecified; E78.5 Hyperlipidemia, unspecified; D50.0 Iron deficiency anemia secondary to blood loss (chronic); F32.9 Major depressive disorder, single episode, unspecified; G89.4 Chronic pain syndrome; M48.061 Spinal stenosis, lumbar region without neurogenic claudication; Z66 Do not resuscitate; Z96.653 Presence of artificial knee joint, bilateral; Z85.3 Personal history of malignant neoplasm of breast; Z90.710 Acquired absence of both cervix and uterus; Z79.4 Long term (current) use of insulin; Z86.73 Personal history of transient ischemic attack (TIA), and cerebral infarction without residual deficits
CPT/HCPCS: 36415; 51701; 74177; 80048; 80053; 81001; 82274; 83690; 83735; 84100; 84443; 85014; 85018; 85025; 85027; 85610; 87045; 87046; 87077; 87081; 87086; 87088; 87324; 87427; 88305; 89055; 96361; 96365; 96372; 97110; 97116; 97161; 97165; 97530; 97535; 99285; A9270; G0378; J0360; J0696; J1815; J2212; J2704; J3480; J7030; J7120; Q9967

== ENCOUNTER 2020-04-28 12:57 | Observation (INO) | payer OTHER, SELFPAY ==
[2020-04-28] VITALS (11 sets, daily range): BP systolic 117–187; BP diastolic 69–91; PULSE 76–97; RESP 12–19; TEMP 36.3–37.1; O2SAT 96–98; BMI 19.8
--- NOTE | ~2020-04-28 | XR_ITS ---
EXAMINATION: XR chest 2V DATE: 04/28/2020 13:45 INDICATION: Shortness of breath. Generalized chest pain. TECHNIQUE: frontal and lateral views of the chest were obtained. COMPARISON: Chest radiograph dated 08/10/2019 FINDINGS: Chronic pleural-parenchymal scarring at the lateral and posterior right lung base with adjacent old h ealed rib fracture. No new airspace opacities, pulmonary edema, pleural effusion or pneumothorax. Cody cified left lung nodule with calcified left hilar and mediastinal lymph nodes consistent with old gra nulomatous disease. The cardiomediastinal silhouette is normal. Surgical clips in the epigastric daniel on. Mild thoracolumbar dextrocurvature with mild to moderate thoracic spondylosis. IMPRESSION: 1. Chronic scarring at the right lung base. No acute cardiopulmonary disease. Reviewed, dictated and finalized at location A.
--- NOTE | 2020-04-28 12:58 | ECG_ITS ---
Measurements Intervals [place] Rate: 106 P: [place]: 0 QRS: 59 QRSD: 72 T: 70 QT: 315 QTc: 419 Interpretive Statements SINUS RHYTHM SHORT RUNS OF ATRIAL TACHYCARDIA ABNORMAL ECG Electronically Signed On 04-28-2020 14:03:03 CDT by Cooper Last D.O.
[2020-04-28] MEDS: ASPIRIN 81 MG CHEWABLE TABLET 324 MG PO (13:10)
--- NOTE | 2020-04-28 13:12 | ED.GENADULT ---
HPI - General Adult General Chief complaint: Chest Pain Stated complaint: CHEST PAIN, SOB Time Seen by Provider: 04/28/20 13:11 History of Present Illness HPI narrative: Patient is a 79 y/o female complaining of intermittent, aching chest pain since yesterday. She states that her pain radiates to her back between her shoulder blades. She rates her pain as 8/10. She has some SOB. She denies any cough, fever or legs swelling. Related Data Home Medications Medication Instructions Recorded Confirmed cetirizine 10 mg tablet 10 mg PO DAILY 11/23/19 01/25/20 hydrocodone 10 mg-acetaminophen 1 tablet PO TID PRN 11/23/19 01/25/20 325 mg tablet lisinopril 40 mg tablet 40 mg PO DAILY 11/23/19 01/25/20 docusate sodium 100 mg PO DAILY 01/25/20 01/25/20 oxycodone-acetaminophen 1 tablet PO Q6H PRN 01/25/20 01/25/20 Allergies Allergy/AdvReac Type Severity Reaction Status Date / Time No Known Allergies Allergy Verified 01/24/20 17:06 Review of Systems Constitutional: Constitutional: Denies chills, Denies fever(s), Denies headache(s) and Denies weakness Eyes: Eyes: Denies blurry vision ENT: Denies headache(s) and Denies neck pain Cardiovascular: Cardiovascular: Reports chest pain and Denies dyspnea Respiratory: Respiratory: Denies cough and Denies dyspnea Gastrointestinal: Gastrointestinal: Denies abdominal pain, Denies diarrhea, Denies nausea and Denies vomiting Genitourinary: Genitourinary: Denies hematuria and Denies dysuria Musculoskeletal: Musculoskeletal: Reports back pain and Denies neck pain Neurologic: Denies headache(s) and Denies weakness COUNTS INCLUDE 234 BEDS AT THE [facility] Past Medical History Medical History Abdominal pain Abnormality of gait and mobility Arteriosclerosis of both carotid arteries Arthritis Benign reactive hypertension Breast cancer Cerebral atherosclerosis Chronic intractable pain Colon, diverticulosis CVA (cerebrovascular accident) DDD (degenerative disc disease) Depression Dyspepsia Early satiety Fusion of lumbar spine GERD (gastroesophageal reflux disease) HTN (hypertension) Hyperlipidemia Iron deficiency anemia secondary to blood loss (chronic) Malaise and fatigue Neutropenia Opioid dependence Osteoporosis Overflow incontinence Peripheral vascular disease, unspecified Physical debility Pneumonia Polypharmacy Presence of intrathecal pump Seasonal allergies Spinal stenosis Type 2 diabetes mellitus with diabetic polyneuropathy UTI (urinary tract infection) UTI (urinary tract infection) Surgical History Surgical History H/O abdominal surgery pain pump on left abdomen H/O left mastectomy History of bladder surgery bladder suspension History of hysterectomy History of spinal surgery x2 on lumbar spine, x2 on cervical spine History of total knee arthroplasty bilateral Family History Family History Mother Patient's mother is Father Patient's father is Other Family history of cardiovascular disease Family history of heart disease in male family member before age 55 Hypertension Social History Social History Social History: Pt lives at home with her Son. She would like Mehul to be her surrogate decision maker if needed. I have spoken to him and he is her POA. Mehul and the patient would like to be a DNR. She does not smoke, drink, or do drugs. 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 smoker Second hand tobacco smoke exposure: No Alcohol intake: never Substance use: never Substance use type: does not use Gender identity (if verbalized by the patient): Female Spiritual care concerns: No Exam Const: General: no acute distress and well developed Orientation/consciousness: oriented to person, oriented to place, orie
[2020-04-28 13:32] LABS: Basophils Absolute Auto 0.1 K/mm3 (0.0-0.1); Basophils Percent Auto 0.5 % (0.2-1.2); Eosinophils Absolute Auto 0.2 K/mm3 (0-0.3); Eosinophils Percent Auto 1.9 % (0-4.4); Hematocrit 31.5 % (37.0-47.0); Hemoglobin 9.6 g/dL (12.0-15.0); Immature Granulocyte Absolute 0.04 K/mm3 (0.00-0.031); Immature Granulocyte Percent A 0.4 % (0-0.5); Lymphocytes Absolute Auto 2.03 K/mm3 (0.9-3.2); Mean Corpuscular HGB Conc 30.5 g/dl (32-36); Mean Corpuscular Hemoglobin 28.7 pg (26-34); Mean Corpuscular Volume 94.3 fl (80-100); Mean Platelet Volume 9.2 fl (7.4-10.4); Monocytes Absolute Auto 0.8 K/mm3 (0.1-0.6); Neutrophils Percent Auto 69.2 % (45.5-73.1); Platelet Count Result 424 k/mm3 (150-375); Red Blood Count 3.34 M/mm3 (4.2-5.4); White Blood Count 10.2 K/mm3 (4.5-10.0)
[2020-04-28 13:41] LABS: INR 0.9; Prothrombin Time 12.3 Seconds (11.1-14.7)
[2020-04-28 13:42] LABS: Partial Thromboplastin Time 33.6 SECONDS (22.3-36.8)
[2020-04-28 13:46] LABS: Blood Urea Nitrogen 15 mg/dL (7-17); Calcium 9.8 mg/dL (8.4-10.2); Carbon Dioxide 29 mmol/L (22-30); Chloride 95 mmol/L (98-107); Estimated CRCL calculation 44 ml/min; Estimated Glomerular Filt Rate > 60; Glucose 167 mg/dL (65-105); Potassium 4.6 mmol/L (3.4-5.0); Sodium 134 mmol/L (137-145)
[2020-04-28 13:56] LABS: Troponin I < 0.012 ng/mL (0.000-0.034)
[2020-04-28 16:59] LABS: Troponin I < 0.012 ng/mL (0.000-0.034)
[2020-04-28] MEDS: METOPROLOL SUCCINATE EXT REL 50 MG TABCR PO (18:22)
--- NOTE | 2020-04-28 19:00 | ECG_ITS ---
Measurements Intervals [place] Rate: 76 P: 48 ME: 142 QRS: 56 QRSD: 69 T: 65 QT: 361 QTc: 408 Interpretive Statements SINUS RHYTHM FREQUENT ATRIAL PREMATURE COMPLEXES ABNORMAL ECG Electronically Signed On 04-29-2020 7:06:38 CDT by Cooper Last D.O.
--- NOTE | 2020-04-28 19:00 | PC.NURSE ---
Report called at 1852, Davina RAMAN
[2020-04-28 20:02] LABS: Troponin I < 0.012 ng/mL (0.000-0.034)
[2020-04-28] MEDS: TRAZODONE HCL 50 MG TABLET 100 MG PO (22:02)
[2020-04-28] MEDS: ATORVASTATIN 40 MG TABLET PO (22:03)
[2020-04-28] MEDS: AMITRIPTYLINE HCL 25 MG TABLET PO (22:03)
[2020-04-29] VITALS (7 sets, daily range): BP systolic 153–157; BP diastolic 78–92; PULSE 71–79; RESP 11–14; TEMP 37.1; O2SAT 96–98
--- NOTE | 2020-04-29 | ECHO_ITS ---
Patient Info Name: Brandi Shepherd Age: 79 years : 1940 Gender: Female Ht: 6 in Wt: 126 lbs BSA: 0.63 m2 HR: 73 bpm BP: 153 / 78 mmHg Heart Rhythm: Sinus Arrhythmia Technical Quality: Good Exam Date: 04/29/2020 9:14 AM Exam Location: [facility] Patient Status: Inpatient Admit Date: 04/28/2020 Staff Ordering Physician: Kyle Javed MD Generator Rebuilder: Damion Prado RDCS Attending Provider: Kyle Javed MD Exam Type: CA echo dop color flow w con Study Info Indications R07.9 - Chest pain, unspecified Complete two-dimensional, color flow and Doppler transthoracic echocardiogram is performed with contrast to opacify the left ventricle and to improve the deliniation of the left ventricle endocardial borders. Contrast/Agitated Saline Contrast/Ag. Saline: Definity Amount: 1.00 ml Administered By: Sara Galvez RN Existing IV Access: Yes History/Risk Factors Chest pain, DM2, SOB, HTN, Afib. Summary 1. There is borderline increased left ventricular wall thickness. 2. Left ventricular systolic function is normal, estimated at 60-65%. 3. Right ventricular chamber dimension is top normal in size. 4. Right ventricular systolic function is normal. 5. The aortic valve is not well visualized but appears trileaflet. 6. There is no aortic valve stenosis. 7. There is no mitral valve regurgitation. 8. There is no significant tricuspid valve stenosis. 9. No pulmonary hypertension, estimated pulmonary arterial systolic pressure is 30-35 mmHg. 10. There is no pericardial effusion. Left Ventricle Left ventricular chamber dimension is normal. Left ventricular systolic function is normal, estimated at 60-65%. There is borderline increased left ventricular wall thickness. Left ventricular septal wall motion is normal. The left ventricular diastolic function is grade I diastolic dysfunction. Right Ventricle Right ventricular chamber dimension is top normal in size. Right ventricular systolic function is normal. Left Atria Left atrial chamber dimension is normal. Right Atria Right atrial chamber dimension is normal. Atrial Septum lipomatous hypertrophy of the atrial septum noted. Aortic Valve The aortic valve is not well visualized but appears trileaflet. There is no aortic valve sclerosis. There is no aortic valve stenosis. There is no aortic valve regurgitation. Pulmonic Valve The pulmonic valve is normal. There is no pulmonic valve stenosis. There is no pulmonic regurgitation. Mitral Valve The mitral valve has normal leaflets. There is no mitral valve stenosis. There is no mitral valve regurgitation. Tricuspid Valve The tricuspid valve leaflets are normal. There is no significant tricuspid valve stenosis. There is no tricuspid valve regurgitation. No pulmonary hypertension, estimated pulmonary arterial systolic pressure is 30-35 mmHg. Pericardium/Pleural The pericardium appears normal. There is no pericardial effusion. Inferior Vena Cava Normal inferior vena cava with >50% collapse upon inspiration consistent with Empty right atrial pressure, 5 mmHg. Aorta The aortic root size at the sinus of Valsalva is normal. The prox ascending aorta size is normal. Left Ventricular Outflow Tract Name Value Normal
[2020-04-29] MEDS: ACETAMINOPHEN 325 MG TABLET 650 MG PO (02:25)
[2020-04-29] MEDS: LEVOTHYROXINE SODIUM 75 MCG TABLET PO (05:51)
[2020-04-29] MEDS: cilostazoL 100 MG TABLET PO (05:51)
[2020-04-29] MEDS: lisinopriL 20 MG TABLET 40 MG PO (08:11)
[2020-04-29] MEDS: metFORMIN HCL 500 MG TABLET 1000 MG PO (08:12)
[2020-04-29] MEDS: CLONIDINE HCL 0.1 MG TABLET PO (08:13)
[2020-04-29] MEDS: AMLODIPINE BESYLATE 5 MG TABLET PO (08:13)
[2020-04-29] MEDS: LORATADINE 10 MG TABLET PO (08:13)
[2020-04-29] MEDS: PANTOPRAZOLE 40 MG TABLET PO (08:13)
[2020-04-29] MEDS: PERFLUTREN LIPID MICROSPHERES 1.5 ML VIAL DILUTED TO 10 ML TOTAL VOLUME IV PUSH (09:38)
--- NOTE | 2020-04-29 11:12 | PM.IMHP ---
H&P: HPI History of Present Illness Chief complaint: chest pain Narrative: Brandi Shepherd is a 79 year old female with h/o HTN, DM, HLD, chronic pain issues with intrathecal morphine pump for chronic back pain who presented with chest pain. Per ER documentation patient presented with chest pain, but at that time I interviewed patient she denies chest pain and admits to lower back pain that radiates to left flank area and below left rib cage. She was noted to have frequent PACs with possible short runs of A fib. She denies palpitations. Never had heart issues in the past, nor had cardiac work up. Trop has been negative X3 and EKG shows sinus rythm with frequent PACs Denies dyspnea or orthopnea. No dizziness, lightheadedness or syncope She denies tobacco abuse. Review of Systems Review of Systems: All systems reviewed & are unremarkable except as noted in HPI and below Constitutional: Constitutional: Denies fatigue and Denies headache(s) Eyes: Eyes: Denies blurry vision ENT: Reports Normal hearing present and Denies headache(s) Cardiovascular: Cardiovascular: Denies chest pain, Denies diaphoresis, Denies pedal edema, Denies leg edema, Denies lightheadedness, Denies palpitations and Denies dyspnea Respiratory: Respiratory: Denies cough and Denies dyspnea Gastrointestinal: Gastrointestinal: Denies abdominal pain Musculoskeletal: Musculoskeletal: Denies back pain Neurologic: Reports Normal hearing present and Denies headache(s) Psychiatric: Psychiatric: Denies anxiety Endocrine: Endocrine: Denies fatigue and Denies palpitations PMF Past Medical History Medical History Abdominal pain Abnormality of gait and mobility Arteriosclerosis of both carotid arteries Arthritis Benign reactive hypertension Breast cancer Cerebral atherosclerosis Chronic intractable pain Colon, diverticulosis CVA (cerebrovascular accident) DDD (degenerative disc disease) Depression Dyspepsia Early satiety Fusion of lumbar spine GERD (gastroesophageal reflux disease) HTN (hypertension) Hyperlipidemia Iron deficiency anemia secondary to blood loss (chronic) Malaise and fatigue Neutropenia Opioid dependence Osteoporosis Overflow incontinence Peripheral vascular disease, unspecified Physical debility Pneumonia Polypharmacy Presence of intrathecal pump Seasonal allergies Spinal stenosis Type 2 diabetes mellitus with diabetic polyneuropathy UTI (urinary tract infection) UTI (urinary tract infection) Surgical History Surgical History H/O abdominal surgery pain pump on left abdomen H/O left mastectomy History of bladder surgery bladder suspension History of hysterectomy History of spinal surgery x2 on lumbar spine, x2 on cervical spine History of total knee arthroplasty bilateral Family History Family History (Updated 04/28/20 @ 19:52 by Davina Phillips, DANISHA) Mother Patient's mother is Hypertension Diabetes mellitus Father Patient's father is Hypertension Myocardial infarct Sibling Diabetes mellitus Sibling Diabetes mellitus Other Family history of cardiovascular disease Family history of heart disease in male family member before age 55 Social History Social History Social History: Pt lives at home with her Son. She would like Mehul to be her surrogate decision maker if needed. I have spoken to him and he is her POA. Mehul and the patient would like to be a DNR. She does not smoke, drink, or do drugs. 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 smoker Second hand tobacco smoke exposure: No Alcohol intake: never Substance use: never Substance use type: does not use Gender identity (if verbalized by the patient): Female Spiritual care concerns: No Meds Home Medications and Allergies H
--- NOTE | 2020-04-29 11:23 | PM.DS ---
DS: Discharge Diagnosis Discharge Diagnosis (1) Chest pain: Qualifiers: Chest pain type: unspecified Qualified Code(s): R07.9 - Chest pain, unspecified Code(s): R07.9 - Chest pain, unspecified Status: Acute Assessment and Plan: It appears that she has back pain with radiation to flank pain and below left rib cage. That is very atypical for angina and most likely related to her known chronic back pain. Trop X3 and EKG shows no ischemic changes however it shows frequent PACs with possible short runs of A fib Her heart rate is overall acceptable. Would start low dose Metoprolol 2D echocardiogram shows normal LV function and no significant valvular disease May consider outpatient stress testing for risk stratification given history of DM and other risk factors. That can be arranged in outpatient settings (2) Atrial fibrillation: Qualifiers: Atrial fibrillation type: unspecified Qualified Code(s): I48.91 - Unspecified atrial fibrillation Code(s): I48.91 - Unspecified atrial fibrillation Status: Acute Assessment and Plan: Tele shows very frequent PACs with short runs PACs consistent with SVT vs A fib Will start Metoprolol Consider outpatient holter monitor to look for burden of A fib and consider AC if confirmed A fib (3) Chronic intractable pain: Code(s): G89.29 - Other chronic pain Status: Acute Assessment and Plan: Has pain bump (4) Type 2 diabetes mellitus with diabetic polyneuropathy: Qualifiers: Diabetes mellitus alf insulin use: with alf use Qualified Code(s): E11.42 - Type 2 diabetes mellitus with diabetic polyneuropathy; Z79.4 - [employer] (current) use of insulin Code(s): E11.42 - Type 2 diabetes mellitus with diabetic polyneuropathy Status: Acute (5) Hypertension: Qualifiers: Hypertension type: unspecified Qualified Code(s): I10 - Essential (primary) hypertension Code(s): I10 - Essential (primary) hypertension Status: Acute Assessment and Plan: Add Metoprolol DS: Summary Time Spent with Patient Time attestation: Total time spent providing and/or coordinating discharge services: Exam Const: General: no acute distress Eyes: Sclera: sclerae normal Neck: Neck: no JVD Carotids: no bruits Resp: Effort & Inspection: normal respiratory effort Auscultation: clear to auscultation bilaterally Cardio: Rate: regular rate and not tachycardic Rhythm: regular rhythm Heart sounds: no gallops, no murmurs and no rubs Skin: General skin exam: normal color Neuro: Cranial nerves: Yes Normal hearing present Speech: normal speech Extrem: General: normal to inspection and no edema Psych: Affect: normal affect DS: Data Data Completed and Pending Labs on day of discharge: Labs from last 24 hours 04/28/20 04/28/20 04/28/20 19:30 16:27 13:25 WBC RBC Hgb Hct MCV MCH MCHC RDW Plt Count MPV Immature Gran % (Auto) Neut % (Auto) Lymph % (Auto) Heard % (Auto) Eos % (Auto) Baso % (Auto) Lymph # (Auto) Heard # (Auto) Eos # (Auto) Baso # (Auto) Abs Immat Gran (auto) Absolute Neuts (auto) Absolute Nucleated RBC Nucleated RBC % PT INR APTT D-Dimer 0.40 Sodium Potassium Chloride Carbon Dioxide BUN Creatinine Estim Creat Clear Calc Estimated GFR Glucose Calcium Troponin I < 0.012 < 0.012 04/28/20 04/28/20 04/28/20 13:25 13:25 13:25 WBC 10.2 H RBC 3.34 L Hgb 9.6 L Hct 31.5 L MCV 94.3 MCH 28.7 MCHC 30.5 L RDW 14.0 Plt Count 424 H MPV 9.2 Immature Gran % (Auto) 0.4 Neut % (Auto) 69.2 Lymph % (Auto) 20.0 Heard % (Auto) 8.0 Eos % (Auto) 1.9 Baso % (Auto) 0.5 Lymph # (Auto) 2.03 Heard # (Auto) 0.8 H Eos # (Auto) 0.2 Baso # (Auto) 0.1 Abs Immat Gran (auto) 0.04
[2020-05-06 11:08] LABS: Glucose Point of Care 130 (65-105)
== END 2020-04-29 13:15 | disposition home or self-care (01) ==
LOC: ANHED 18:17 → ANHCPC 18:57
PROVIDERS: Emergency Medicine; Admitting Provider Specialist; Emergency Provider Emergency Medicine; PCP Family Medicine; Visit Provider Internal Medicine
DX: R07.9 Chest pain, unspecified (principal); I48.91 Unspecified atrial fibrillation; I10 Essential (primary) hypertension; E78.5 Hyperlipidemia, unspecified; G89.29 Other chronic pain; E11.42 Type 2 diabetes mellitus with diabetic polyneuropathy; Z66 Do not resuscitate; Z79.4 Long term (current) use of insulin
CPT/HCPCS: 36415; 71046; 80048; 84484; 85025; 85380; 85610; 85730; 93005; 96374; 99285; A9270; C8929; G0378; Q9957

== ENCOUNTER 2020-06-07 00:22 | Outpatient (CLI) | payer OTHER, SELFPAY ==
[2020-06-07 18:31] LABS: SARS-CoV-2 RNA PCR Negative
== END 2020-06-07 00:23 | disposition home or self-care (01) ==
LOC: ANHCOVIDDT 00:22
PROVIDERS: PCP Family Medicine; Visit Provider Internal Medicine Gastroenterology
DX: Z01.812 Encounter for preprocedural laboratory examination (principal); Z11.59 Encounter for screening for other viral diseases
CPT/HCPCS: 87635; C9803; U0003

== ENCOUNTER 2020-06-10 02:02 | Day surgery (SDC) | payer OTHER, SELFPAY ==
[2020-06-04 08:49] VITALS: BMI 21.3
--- NOTE | 2020-06-09 12:37 | WPDANESEPPF ---
Anes - Initial Pre Proc Eval Procedure: Operation Date: 06/10/20 07:30 Proposed Procedures p Esophagogastroduodenoscopy - Raymundo Nova MD Date/Time: 06/09/20 12:37 Surgeon: Raymundo Nova MD Pre Op Diagnosis: Abdominal Pain/ Weight Loss Patient Data Age: 79 Gender: F Height: 5 ft 6 in Weight: 60 kg Allergies Allergy/AdvReac Type Severity Reaction Status Date / Time No Known Allergies Allergy Verified 06/10/20 06:17 Home Medications Medication Instructions Recorded Confirmed Type metoclopramide HCl 10 mg tablet 10 mg PO Q6H PRN #360 tablet 10/01/19 06/04/20 Rx cetirizine 10 mg tablet 10 mg PO DAILY 11/23/19 06/04/20 History oxycodone-acetaminophen 1 tablet PO TID 01/25/20 06/04/20 History amitriptyline 25 mg tablet 25 mg PO HS #90 tablet 02/04/20 06/04/20 Rx cilostazol 100 mg tablet 100 mg PO BID #60 tablet 02/21/20 06/04/20 Rx levothyroxine 75 mcg tablet 75 mcg PO DAILY #90 tablet 04/21/20 06/04/20 Rx Lantus Solostar U-100 Insulin 14 unit SUBCUT QAM 04/28/20 06/04/20 History trazodone 100 mg PO HS 04/28/20 06/04/20 History clonidine HCl 0.1 mg tablet 0.1 mg PO BID #180 tablet 05/05/20 06/04/20 Rx morphine in 0.9 % sodium chlor CONTINUOUS SUBCUTANEOUS INFUSION 06/04/20 History amlodipine 5 mg tablet 5 mg PO QAM #90 tablet 06/05/20 06/10/20 Rx atorvastatin 40 mg tablet 40 mg PO HS #90 tablet 06/05/20 Rx linaclotide 72 mcg capsule 72 mcg PO DAILY #90 cap 06/05/20 Rx lisinopril 40 mg tablet 40 mg PO DAILY #90 tablet 06/05/20 Rx metformin 1,000 mg tablet 1,000 mg PO BID #180 tablet 06/05/20 Rx metoprolol succinate 25 mg capsule 25 mg PO DAILY #90 each 06/05/20 Rx sprinkle, ext. release 24 hr pantoprazole 40 mg tablet,delayed 40 mg PO DAILY #90 tablet 06/05/20 Rx release Patient hx anesthesia problems: none Family hx anesthesia problems: none PMFSH Family History Family History (Updated 04/28/20 @ 19:52 by Davina Phillips RN) Mother Patient's mother is Hypertension Diabetes mellitus Father Patient's father is Hypertension Myocardial infarct Sibling Diabetes mellitus Sibling Diabetes mellitus Other Family history of cardiovascular disease Family history of heart disease in male family member before age 55 Social History Social History Social History: Pt lives at home with her Son. She would like Mehul to be her surrogate decision maker if needed. I have spoken to him and he is her POA. Mehul and the patient would like to be a DNR. She does not smoke, drink, or do drugs. 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 smoker Second hand tobacco smoke exposure: No Alcohol intake: never Substance use: never Substance use type: does not use Gender identity (if verbalized by the patient): Female Spiritual care concerns: No Anes - Eval Final PreProcedure Day of Procedure 06/09/20 12:37 Patient weight: normal Heart: regular rate and rhythm Lungs: clear to auscultation Airway: Mallampati scale class III Neurological: alert and oriented Last oral intake: >/= 8 hours ASA classification: IV Emergent: no Anesthetic plan: proceed Anesthesia type and monitoring: general GIVS and standard monitoring Informed Consent: The patient's anesthetic plan and its attendant risks and benefits were discussed with the patient/family/POA. Questions were solicited and answers provided to the satisfaction of the patient/family/POA.
[2020-06-10 06:15] VITALS: BP 169/71; PULSE 93; RESP 18; TEMP 37.2; O2SAT 97
[2020-06-10] MEDS: LACTATED RINGERS 1,000 ML 150 ML IV CONT (06:37)
[2020-06-10 06:41] LABS: Glucose Point of Care 115 (65-105)
--- NOTE | 2020-06-10 07:35 | PM.HPGS ---
History of Present Illness History of Present Illness Consent: Risks, benefits, and alternatives have been discussed and questions answered. Patient agrees to proceed with procedure. Chief complaint: Abdominal Pain/ Weight Loss Narrative: Brandi Shepherd is a 79 year old female with gastric ulcer few months ago already on ppi, here to assess for healing Review of Systems Constitutional: Constitutional: Denies headache(s) and Denies weakness Eyes: Eyes: Denies blurry vision ENT: Reports Normal hearing present, Denies headache(s) and Denies neck pain Cardiovascular: Cardiovascular: Denies chest pain and Denies dyspnea Respiratory: Respiratory: Denies dyspnea Gastrointestinal: Gastrointestinal: Reports no additional gastrointestinal complaints Genitourinary: Genitourinary: Denies dysuria Musculoskeletal: Musculoskeletal: Denies neck pain Integumentary/Breasts: Skin/Breast: Denies dry skin Neurologic: Reports Normal hearing present, Denies headache(s) and Denies weakness Psychiatric: Psychiatric: Denies anxiety Endocrine: Endocrine: Denies change in body appearance Hematologic/Lymphatic: Hematologic/Lymphatic: Denies easy bleeding Allergic/Immunologic: Allergic/Immunologic: Denies urticaria [facility] Family History Family History (Updated 04/28/20 @ 19:52 by Davina Phillips RN) Mother Patient's mother is Hypertension Diabetes mellitus Father Patient's father is Hypertension Myocardial infarct Sibling Diabetes mellitus Sibling Diabetes mellitus Other Family history of cardiovascular disease Family history of heart disease in male family member before age 55 Social History Social History Social History: Pt lives at home with her Son. She would like Mehul to be her surrogate decision maker if needed. I have spoken to him and he is her POA. Mehul and the patient would like to be a DNR. She does not smoke, drink, or do drugs. 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 smoker Second hand tobacco smoke exposure: No Alcohol intake: never Substance use: never Substance use type: does not use Gender identity (if verbalized by the patient): Female Spiritual care concerns: No Meds Home Medications and Allergies Home Medications Medication Instructions Recorded Confirmed Type metoclopramide HCl 10 mg tablet 10 mg PO Q6H PRN #360 tablet 10/01/19 06/04/20 Rx cetirizine 10 mg tablet 10 mg PO DAILY 11/23/19 06/04/20 History oxycodone-acetaminophen 1 tablet PO TID 01/25/20 06/04/20 History amitriptyline 25 mg tablet 25 mg PO HS #90 tablet 02/04/20 06/04/20 Rx cilostazol 100 mg tablet 100 mg PO BID #60 tablet 02/21/20 06/04/20 Rx levothyroxine 75 mcg tablet 75 mcg PO DAILY #90 tablet 04/21/20 06/04/20 Rx Lantus Solostar U-100 Insulin 14 unit SUBCUT QAM 04/28/20 06/04/20 History trazodone 100 mg PO HS 04/28/20 06/04/20 History clonidine HCl 0.1 mg tablet 0.1 mg PO BID #180 tablet 05/05/20 06/04/20 Rx morphine in 0.9 % sodium chlor CONTINUOUS SUBCUTANEOUS INFUSION 06/04/20 History amlodipine 5 mg tablet 5 mg PO QAM #90 tablet 06/05/20 06/10/20 Rx atorvastatin 40 mg tablet 40 mg PO HS #90 tablet 06/05/20 Rx linaclotide 72 mcg capsule 72 mcg PO DAILY #90 cap 06/05/20 Rx lisinopril 40 mg tablet 40 mg PO DAILY #90 tablet 06/05/20 Rx metformin 1,000 mg tablet 1,000 mg PO BID #180 tablet 06/05/20 Rx metoprolol succinate 25 mg capsule 25 mg PO DAILY #90 each 06/05/20 Rx sprinkle, ext. release 24 hr pantoprazole 40 mg tablet,delayed 40 mg PO DAILY #90 tablet 06/05/20 Rx release Allergies Allergy/AdvReac Type Severity Reaction Status Date / Time No Known Allergies Allergy Verified 06/10/20 06:17 Vital Signs Vital Signs - 24 hr 06/10/20 06:15 Temperature 99.0 F Pulse Rate 93 Respiratory Rate 18 Blood Pressure 169/71 H Pulse Oximetry 97 Exam Const: General: comfor
[2020-06-10 07:53] VITALS: BP 192/81; PULSE 82; RESP 21; O2SAT 100
[2020-06-10 08:03] VITALS: BP 180/78; PULSE 80; RESP 14; O2SAT 100
[2020-06-10 08:13] VITALS: BP 182/69; PULSE 80; RESP 15; O2SAT 100
== END 2020-06-10 08:43 | disposition home or self-care (01) ==
PROVIDERS: PCP Family Medicine; Visit Provider Internal Medicine Gastroenterology
PROC: 0DJ08ZZ Inspection of Upper Intestinal Tract, Via Natural or Artificial Opening Endoscopic (ICD-10-PCS; CPT 43235; principal; 2020-06-10 07:30)
DX: Z09 Encounter for follow-up examination after completed treatment for conditions other than malignant neoplasm (principal); K25.7 Chronic gastric ulcer without hemorrhage or perforation; K31.84 Gastroparesis; I10 Essential (primary) hypertension; E78.5 Hyperlipidemia, unspecified; K21.9 Gastro-esophageal reflux disease without esophagitis; F32.9 Major depressive disorder, single episode, unspecified; M81.0 Age-related osteoporosis without current pathological fracture; E11.40 Type 2 diabetes mellitus with diabetic neuropathy, unspecified; F11.20 Opioid dependence, uncomplicated; Z98.1 Arthrodesis status; Z86.73 Personal history of transient ischemic attack (TIA), and cerebral infarction without residual deficits; Z85.3 Personal history of malignant neoplasm of breast; Z79.4 Long term (current) use of insulin; Z79.84 Long term (current) use of oral hypoglycemic drugs
CPT/HCPCS: 43239; 88305; 88312; 88342; J2704; J7120

== ENCOUNTER 2020-07-17 10:22 | Outpatient (CLI) | payer OTHER, SELFPAY ==
--- NOTE | ~2020-07-17 | XR_ITS ---
EXAMINATION: XR knee LT 3V DATE: 07/17/2020 11:19 INDICATION: Left knee effusion. TECHNIQUE: 3 views of left knee were obtained. COMPARISON: Left knee radiographs 08/02/2019 FINDINGS: There is a longstem total left knee arthroplasty with patellar resurfacing in near-anatomic alignment. No fracture. No periprosthetic lucency to suggest loosening or infection. There is no kne e joint effusion. IMPRESSION: 1. Total left knee arthroplasty in near-anatomic alignment. Reviewed, dictated and finalized at location B.
--- NOTE | ~2020-07-17 | XR_ITS ---
EXAMINATION: XR knee RT 3V DATE: 07/17/2020 11:19 INDICATION: Right knee effusion. TECHNIQUE: 3 views of right knee on 5 radiographs were obtained. COMPARISON: Right knee radiographs 08/02/2019 FINDINGS: There is a longstem total right knee arthroplasty with patellar resurfacing in near-anatomi c alignment. No fracture. No periprosthetic lucency to suggest loosening or infection. No knee joint effusion. IMPRESSION: 1. Total right knee arthroplasty in near-anatomic alignment. Reviewed, dictated and finalized at location B.
== END 2020-07-17 10:23 | disposition home or self-care (01) ==
LOC: ANHIMG 10:33
PROVIDERS: PCP Family Medicine; Visit Provider Family Medicine
DX: M25.469 Effusion, unspecified knee (principal)
CPT/HCPCS: 73562

== ENCOUNTER 2020-07-28 11:32 | Inpatient (IN) | payer OTHER, SELFPAY ==
--- NOTE | ~2020-07-28 | XR_ITS ---
XR abdomen NG/feed tube insert DATE: 07/28/2020 16:28 INDICATION: Nasogastric tube placement TECHNIQUE: Portable AP view on 07/28/2020 at 1616 hours COMPARISON: None FINDINGS: The nasogastric tube reaches the lower mid chest and then makes a 180 degree U- turn, with the distal 3.9 cm directed cephalad in the lower chest. Surgical clips are noted overlying the very upper mid abdomen. IMPRESSION: NG tube U-turn in distal esophagus Reviewed, dictated and finalized at [facility]. Reviewed, dictated and finalized at location [facility].
--- NOTE | ~2020-07-28 | CT_ITS ---
EXAMINATION: CT thoracic lumbar w con DATE: 07/28/2020 13:32 INDICATION: Back pain TECHNIQUE: Computed tomography (CT) of the thoracic and lumbar spine was performed without intravenou s contrast. The dose-length product (DLP) was 524.07 mGy-cm. Iterative reconstruction was used. COMPARISON: 01/14/2012 FINDINGS: Thoracic spine: There is no fracture, dislocation, or subluxation. The vertebral body heights and ali gnment are normal. There is mild loss of intervertebral disc space height throughout the thoracic spi ne. The paravertebral soft tissues are normal. A hemangioma is again noted in the T10 vertebral body. A partially imaged pain pump catheter is in the central spinal canal ending at the level of the T12 vertebral body. Incidental note is made of a markedly distended stomach. Lumbar spine: There are changes of interbody fusion at L4-5. There is mild loss of intervertebral dis c space height with vacuum disc phenomenon at L5-S1. There are 3 mm of anterolisthesis of L2 on L3. T he vertebral body heights are maintained. A pain pump catheter enters the central spinal canal at the level L2-3. There is moderate to severe facet osteoarthritis throughout the lumbar spine. IMPRESSION: 1. Moderate thoracic and lumbar spondylosis without acute findings. 2. Marked distention of the stomach, see CT abdomen and pelvis. Reviewed, dictated and finalized at location [facility].
--- NOTE | ~2020-07-28 | XR_ITS ---
XR abdomen NG/feed tube rechec DATE: 07/28/2020 16:29 INDICATION: NG tube repositioning TECHNIQUE: Portable AP view on 07/28/2020 at 1627 hours COMPARISON: 07/28/2020 KUB FINDINGS: The NG tube is in the proximal stomach, the proximal port situated at the diaphragmatic hia tus. Advancement is recommended. IMPRESSION: NG tube in proximal stomach, proximal port at diaphragmatic hiatus; advancement is recomm ended Reviewed, dictated and finalized at [facility]. Reviewed, dictated and finalized at location A. IMPRESSION: NG tube in proximal stomach, proximal port at diaphragmatic hiatus; advancement is recommended
--- NOTE | ~2020-07-28 | XR_ITS ---
EXAMINATION: XR chest 2V DATE: 07/30/2020 13:35 INDICATION: Leukocytosis and shortness of breath TECHNIQUE: AP and lateral views of the chest are obtained. COMPARISON: 04/28/2020 FINDINGS: The lungs are free of acute opacities. There is no pleural effusion or pneumothorax. The he art size is normal. Calcified left hilar lymph nodes are consistent with old granulomatous disease. T here is moderate thoracic spondylosis. There is mild elevation of the right hemidiaphragm. IMPRESSION: 1. No acute cardiopulmonary abnormality. Reviewed, dictated and finalized at location B.
--- NOTE | ~2020-07-28 | XR_ITS ---
EXAMINATION: XR abdomen obstructive series DATE: 07/31/2020 06:17 INDICATION: Gastric outlet obstruction TECHNIQUE: Frontal supine and upright views of the abdomen were obtained. COMPARISON: 07/28/2020 FINDINGS: Gaseous distention of the stomach with gas extending into a collar button ulcer at the gastric pyloru s. Postoperative changes at the gastric cardia suggesting prior Santiago fundoplication. Moderate amoun t of stool scattered throughout the colon. No other dilated loops of gas-filled bowel to suggest obst ruction. No free intraperitoneal gas. Intrathecal pain pump projects over the central pelvis with cat heter extending cephalad along the lumbar spine with distal tip at the level of T12-L1. Lumbar levosc oliosis with moderate spondylosis. L4-L5 anterior spinal fusion with bone graft cage projecting over the L4-L5 disc space. Cluster of heterotopic ossifications projecting lateral to the sacrum and coccy x. Moderate left and mild to moderate right hip osteoarthritis. Blunting at the right costophrenic an gle which could represent small right pleural effusion or atelectasis. IMPRESSION: 1. Distention of the stomach consistent with persistent gastric outlet obstruction which on prior CT appears be secondary to inflammatory change associated with a collar button ulcer at the gastric pyl orus. 2. Blunting at the right costophrenic angle which could represent atelectasis and/or small right pleu ral effusion. Reviewed, dictated and finalized at location A. IMPRESSION: 1. Distention of the stomach consistent with persistent gastric outlet obstruc tion which on prior CT appears be secondary to inflammatory change associated w ith a collar button ulcer at the gastric pylorus. 2. Blunting at the right costophrenic angle which could represent atelectasis a nd/or small right pleural effusion.
--- NOTE | ~2020-07-28 | CT_ITS ---
EXAMINATION: CT abdomen pelvis w con INDICATION: Abdominal pain and bloating TECHNIQUE: Computed tomographic images of the abdomen and pelvis were obtained after the administrati on of 100 cc of Omnipaque 350 intravenous contrast. The dose-length product (DLP) was 524 mGy-cm. Aut omated exposure control and iterative reconstruction technique were employed. COMPARISON: 01/24/2020 FINDINGS: Minimal dependent atelectasis is present in the lung bases. The heart size is normal. There is mild chronic intrahepatic and extrahepatic biliary dilatation, likely of little clinical signific ance given normal liver function tests. Stones are present in the nondistended gallbladder. The liver and adrenal glands are normal. There is a 9 mm cyst of the spleen. The pancreas is atrophic. Chronic calcification is also noted in the head of the pancreas. There is marked distention of the stomach. There appears to be wall thickening in the first portion of the duodenum and a possible ulcer of the gastric antrum. Hypoattenuating lesions in the kidneys, measuring up to 9 mm on the right, are too sm all to characterize but likely represent cysts. There is calcified atherosclerosis of the aorta and m any of the other arteries. No pathologically enlarged abdominal or pelvic lymph nodes are identified. A large volume of colonic stool is present. No free intraperitoneal gas is identified. Colonic diver ticulosis is present without evidence of diverticulitis. IMPRESSION: 1. Marked distention of the stomach with possible stricture of the first portion of the duodenum and possible ulcer of the gastric antrum. Endoscopy is recommended. 2. Cholelithiasis without evidence of cholecystitis. Reviewed, dictated and finalized at location A. IMPRESSION: 1. Marked distention of the stomach with possible stricture of the first portio n of the duodenum and possible ulcer of the gastric antrum. Endoscopy is recomm ended. 2. Cholelithiasis without evidence of cholecystitis.
[2020-07-28 11:39] VITALS: BP 191/86; PULSE 80; RESP 18; TEMP 36.6; O2SAT 95
--- NOTE | 2020-07-28 11:40 | ED.BACK ---
HPI - Back Pain/Injury General Chief Complaint: Back Pain/Injury Stated Complaint: back pain, has pain pump Time Seen by Provider: 07/28/20 11:40 Source: patient Mode of arrival: ambulatory Limitations: no limitations History of Present Illness HPI Narrative: Patient is an 80-year-old female with a history of hypertension, hyperlipidemia, diabetes, hypothyroidism who presents for evaluation of lower back pain. Patient reports a 48-hour history of back pain that is described as a bandlike pain over her lower back. Patient reports it radiates into her lower pelvis. She reports abdominal bloating and pain at her abdomen. She denies any dysuria or hematuria. No fever, nausea or vomiting. No recent falls or injury. No dark or tarry stools. Patient has a history of chronic back pain and does have a Dilaudid pain pump. Patient denies any saddle anesthesia. No recent heavy lifting. Patient denies any radiation of the pain down her buttocks or into her thighs. No weakness or numbness in the lower extremities. Related Data Home Medications Medication Instructions Recorded Confirmed cetirizine 10 mg tablet 10 mg PO DAILY 11/23/19 07/03/20 oxycodone-acetaminophen 1 tablet PO TID 01/25/20 07/03/20 Lantus Solostar U-100 Insulin 14 unit SUBCUT QAM 04/28/20 07/03/20 trazodone 100 mg PO HS 04/28/20 07/03/20 morphine in 0.9 % sodium chlor CONTINUOUS SUBCUTANEOUS INFUSION 06/04/20 07/03/20 Allergies Allergy/AdvReac Type Severity Reaction Status Date / Time No Known Allergies Allergy Verified 07/28/20 11:46 Review of Systems Review of Systems: Narrative: CONSTITUTIONAL: Denies fever, chills, or sweats. EYES: Denies visual changes, redness, or discharge. ENT: Denies rhinorrhea, congestion, sore throat, or otalgia. CARDIOVASCULAR: Denies chest pain, palpitations, or edema. RESPIRATORY: Denies cough or dyspnea. GASTROINTESTINAL: Reports bloating, denies nausea or vomiting, denies diarrhea GENITOURINARY: Denies dysuria or hematuria. SKIN: Denies rash or itching. MUSCULOSKELETAL: Reports back pain in the lower back, denies other joint pain, or myalgia. NEUROLOGIC: Denies headache, numbness, or weakness. [facility] Past Medical History Medical History Abdominal pain Abnormality of gait and mobility Arteriosclerosis of both carotid arteries Arthritis Benign reactive hypertension Breast cancer Cerebral atherosclerosis Chronic intractable pain Colon, diverticulosis CVA (cerebrovascular accident) DDD (degenerative disc disease) Depression Dyspepsia Early satiety Fusion of lumbar spine Gastric ulcer GERD (gastroesophageal reflux disease) HTN (hypertension) Hyperlipidemia Iron deficiency anemia secondary to blood loss (chronic) Malaise and fatigue Neutropenia Opioid dependence Osteoporosis Overflow incontinence Peripheral vascular disease, unspecified Physical debility Pneumonia Polypharmacy Presence of intrathecal pump Seasonal allergies Spinal stenosis Type 2 diabetes mellitus with diabetic polyneuropathy UTI (urinary tract infection) UTI (urinary tract infection) Surgical History Surgical History H/O abdominal surgery pain pump on left abdomen H/O left mastectomy History of bladder surgery bladder suspension History of hysterectomy History of spinal surgery x2 on lumbar spine, x2 on cervical spine History of total knee arthroplasty bilateral Social History Social History Social History: Pt lives at home with her Son. She would like Mehul to be her surrogate decision maker if needed. I have spoken to him and he is her POA. Mehul and the patient would like to be a DNR. She does not smoke, drink, or do drugs. 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
[2020-07-28 11:49] VITALS: BP 191/86; PULSE 80; RESP 18; TEMP 36.6; O2SAT 95
[2020-07-28] MEDS: ACETAMINOPHEN 500 MG TABLET 1000 MG PO (12:19)
[2020-07-28] MEDS: SODIUM CHLORIDE 0.9% IV 500 ML 999 ML IV CONT (12:20)
[2020-07-28 12:32] LABS: Basophils Absolute Auto 0.1 K/mm3 (0.0-0.1); Basophils Percent Auto 0.4 % (0.2-1.2); Eosinophils Percent Auto 0.1 % (0-4.4); Hemoglobin 8.3 g/dL (12.0-15.0); Immature Granulocyte Absolute 0.05 K/mm3 (0.00-0.031); Immature Granulocyte Percent A 0.4 % (0-0.5); Lymphocytes Absolute Auto 1.82 K/mm3 (0.9-3.2); Lymphocytes Percent Auto 13.5 % (18.3-44.2); Mean Corpuscular HGB Conc 29.6 g/dl (32-36); Mean Corpuscular Hemoglobin 26.8 pg (26-34); Mean Corpuscular Volume 90.3 fl (80-100); Mean Platelet Volume 9.8 fl (7.4-10.4); Monocytes Percent Auto 7.7 % (2.6-8.5); Neutrophils Absolute Auto 10.5 K/mm3 (1.3-6.7); Neutrophils Percent Auto 77.9 % (45.5-73.1); Platelet Count Result 440 k/mm3 (150-375); Red Cell Distribution Width 17.1 % (11.5-14.5); White Blood Count 13.5 K/mm3 (4.5-10.0)
[2020-07-28 12:46] LABS: Alanine Aminotransferase 9 U/L (4-35); Albumin Level 4.2 g/dL (3.5-5.1); Alkaline Phosphatase 56 U/L (38-126); Anion Gap 9 mmol/L (8-16); Aspartate Amino Transferase 17 U/L (14-36); Bilirubin,Total 0.1 mg/dL (0.2-1.3); Blood Urea Nitrogen 17 mg/dL (7-17); Calcium 9.2 mg/dL (8.4-10.2); Carbon Dioxide 29 mmol/L (22-30); Chloride 91 mmol/L (98-107); Estimated CRCL calculation 48 ml/min; Estimated Glomerular Filt Rate > 60; Glucose 188 mg/dL (65-105); Potassium 4.5 mmol/L (3.4-5.0); Sodium 129 mmol/L (137-145)
[2020-07-28 12:50] LABS: Hypochromasia 1+ (NORMAL); Platelet Estimate Increased (Adequate)
[2020-07-28 15:03] LABS: Add Urine Microscopic? YES; Appearance Urine Clear (Clear); Bilirubin Urine Negative (Negative); Blood Urine Negative (Negative); Color Urine Colorless (Yellow); Glucose Urine UA Negative (Negative); Ketones Urine Negative (Negative); Leukocyte Esterase Ur Negative LEU/UL (Negative); Nitrate Urine Negative (Negative); Protein Urine 1+ mg/dL (Negative); RBC Urine 0-2 /hpf (0-2); Specific Grav Ur 1.019 (1.001-1.035); Urobilinogen Urine Negative mg/dL (<2.0)
[2020-07-28 16:32] VITALS: BP 229/98; PULSE 86; RESP 12; O2SAT 97
[2020-07-28] MEDS: ONDANSETRON INJ 4 MG/2 ML VIAL IV PUSH ×2 (16:32→20:55)
[2020-07-28] MEDS: SODIUM CHLORIDE 0.9% IV 1,000 ML 100 ML IV CONT (16:33)
--- NOTE | 2020-07-28 17:13 | PC.NURSE ---
This patient, Brandi Shepherd, was admitted to 2 Medical Room 251-01. Patient/family oriented to hospital policies and general routines including ID bracelet, bed and alarms, visiting hours, pain management, procedures, bathroom and other care routines, personal items, smoking policy, room service/diet, and visiting hours. Valuables list has been completed. Information on how to activate the Rapid Response Team has been discussed. Patient/Family are encouraged to report perceived risks to care and to ask questions if they do not understand what they are told or what they should do.
[2020-07-28 17:27] VITALS: BP 193/80; PULSE 72; RESP 17; TEMP 36.6; O2SAT 96; BMI 20.5
[2020-07-28 18:54] VITALS: BP 176/66
[2020-07-28 18:57] LABS: Glucose Point of Care 145 (65-105)
--- NOTE | 2020-07-28 19:45 | PM.IMHP ---
H&P: HPI History of Present Illness Date/Time: 07/28/20 19:45 Chief complaint: Abdominal and back pain. Narrative: Brandi Shepherd is an 80-year-old female with chronic back pain with pain pump in situ, GERD, insulin-dependent diabetes, hypothyroidism, and hypertension who presented to the emergency department earlier today from home for evaluation of abdominal and back pain. For the last 2 to 3 days she has had bloating discomfort in her abdomen with dyspepsia, to the point where she has not really had anything to eat or drink for 2 days. She does suffer from GERD, with an increase in symptoms recently for which she has been drinking and oral antacid without much benefit. She has a difficult time describing the abdominal discomfort and simply calls it pain , which over the last 24 hours or so it has started to radiate through to the back. A CT of the abdomen and pelvis done on arrival to the emergency department showed marked distention of the stomach with possible stricture. An NG tube has been placed and she reports improvement in her bloating and dyspepsia. With further questioning, she reports an unintentional 75 lb weight loss in the last 1 year or so. Her last bowel movement was 2 days ago, and is described as unremarkable in size and form but she reports that it was darker than usual. She denies taking iron supplementations and Pepto-Bismol. She denies hematemesis. No chest pain or shortness of breath. She does not consume caffeine or alcohol. She takes an occasional Aleve or ibuprofen, but not even weekly. Review of Systems Review of Systems: Narrative: Twelve systems were reviewed with pertinent positives and negatives as per HPI. No fever, chills, or sweats. 75 lb weight loss, unintentional common last year as detailed above. She denies recent cold and flu symptoms. No travel or sick contacts. No exertional chest pain. She denies cough and shortness of breath. The pain radiating to her back today is different than her chronic back pain. Except as documented, all other systems were reviewed and are negative. [facility] Past Medical History Medical History (Updated 07/28/20 @ 22:58 by Sondra Covington PA-C) Arteriosclerosis of both carotid arteries Arthritis Cancer of left breast (~1999) Status post chemotherapy and mastectomy with lymph node dissection. Cerebral atherosclerosis Cholelithiasis Chronic back pain Secondary to degenerative disc disease, stenosis, and spondylosis. She has a pain pump in situ. Depression Diverticulosis Essential hypertension Gastric ulcer Gastroesophageal reflux disease Hyperlipidemia Hypothyroidism Iron deficiency anemia secondary to blood loss (chronic) Opioid dependence Secondary to chronic back pain. Osteoporosis Overflow incontinence Pneumonia Polypharmacy Seasonal allergies Type 2 diabetes mellitus with diabetic polyneuropathy Insulin-dependent diabetes with a hemoglobin A1c of 6.3% in 06/09/2019. Surgical History Surgical History (Updated 07/28/20 @ 22:50 by Sondra Covington PA-C) History of bilateral knee arthroplasty With revision of right knee. History of bladder surgery bladder suspension History of hysterectomy History of left mastectomy (~1999) History of spinal surgery L4-L5 fusion. Cervical spine surgery x2. Family History Family History Mother Diabetes mellitus Patient's mother is Hypertension Father Myocardial infarct Patient's father is Hypertension Acute myocardial infarction Asthma Diabetes mellitus Sibling Diabetes mellitus Sibling No problems noted. Other Family history of cardiovascular disease Family history of heart disease in male family member before age 55 Social History Social History (Updated 07/28/20 @ 22:53 by Sondra Covington PA-C) Social History: The patient lives in [place] which her son and grandson
[2020-07-28 20:00] VITALS: BP 158/92; PULSE 79; RESP 18; TEMP 36.5; O2SAT 96
[2020-07-28] MEDS: SODIUM CHLORIDE 0.9% IV 1,000 ML 60 ML IV CONT (23:21)
[2020-07-28 23:32] LABS: Sodium 133 mmol/L (137-145)
[2020-07-28 23:34] LABS: Hematocrit 28.3 % (37.0-47.0); Hemoglobin 8.5 g/dL (12.0-15.0)
[2020-07-29] VITALS (10 sets, daily range): BP systolic 150–210; BP diastolic 48–80; PULSE 73–87; RESP 15–21; TEMP 36.3–36.9; O2SAT 91–97; BMI 20.2
--- NOTE | 2020-07-29 | ECG_ITS ---
Measurements Intervals [place] Rate: 74 P: 51 ID: [id number] QRS: 57 QRSD: 69 T: 69 QT: 380 QTc: 424 Interpretive Statements SINUS RHYTHM WITH SINUS ARRHYTHMIA ATRIAL PREMATURE COMPLEX EARLY PRECORDIAL R/S TRANSITION VOLTAGE CRITERIA FOR LVH PEAKED T WAVES- CONSIDER HYPERKALEMIA OR ISCHEMIA BASELINE ARTIFACT- I, III, AVL ABNORMAL ECG Electronically Signed On 07-29-2020 11:30:59 CDT by Cooper Last D.O.
[2020-07-29] MEDS: cloNIDine 0.1 MG/24 HR PATCH 1 PATCH TRANSDERM (00:21)
[2020-07-29 00:26] LABS: Glucose Point of Care 132 (65-105)
[2020-07-29] MEDS: ONDANSETRON INJ 4 MG/2 ML VIAL IV PUSH ×4 (01:08→22:30)
[2020-07-29] MEDS: hydrALAZINE HCL 20 MG/ML VIAL 10 MG IV PUSH ×3 (05:19→21:10)
[2020-07-29 05:28] LABS: Basophils Absolute Auto 0.1 K/mm3 (0.0-0.1); Basophils Percent Auto 0.4 % (0.2-1.2); Eosinophils Absolute Auto 0.1 K/mm3 (0-0.3); Eosinophils Percent Auto 0.5 % (0-4.4); Hematocrit 26.8 % (37.0-47.0); Hemoglobin 7.9 g/dL (12.0-15.0); Immature Granulocyte Absolute 0.06 K/mm3 (0.00-0.031); Immature Granulocyte Percent A 0.4 % (0-0.5); Lymphocytes Percent Auto 14.7 % (18.3-44.2); Mean Corpuscular HGB Conc 29.5 g/dl (32-36); Mean Corpuscular Hemoglobin 26.9 pg (26-34); Mean Corpuscular Volume 91.2 fl (80-100); Monocytes Absolute Auto 1.4 K/mm3 (0.1-0.6); Monocytes Percent Auto 10.2 % (2.6-8.5); Neutrophils Absolute Auto 10.1 K/mm3 (1.3-6.7); Neutrophils Percent Auto 73.8 % (45.5-73.1); Platelet Count Result 388 k/mm3 (150-375); Red Blood Count 2.94 M/mm3 (4.2-5.4); White Blood Count 13.6 K/mm3 (4.5-10.0)
[2020-07-29 05:37] LABS: Hemoglobin A1C 6.1 % (<5.7)
[2020-07-29 05:39] LABS: Alanine Aminotransferase 6 U/L (4-35); Albumin Level 3.6 g/dL (3.5-5.1); Alkaline Phosphatase 49 U/L (38-126); Anion Gap 5 mmol/L (8-16); Aspartate Amino Transferase 12 U/L (14-36); Bilirubin,Total 0.2 mg/dL (0.2-1.3); Blood Urea Nitrogen 14 mg/dL (7-17); Calcium 8.8 mg/dL (8.4-10.2); Carbon Dioxide 31 mmol/L (22-30); Chloride 96 mmol/L (98-107); Estimated CRCL calculation 49 ml/min; Estimated Glomerular Filt Rate > 60; Glucose 130 mg/dL (65-105); Lipase 30 U/L (23-300); Magnesium 1.8 mg/dL (1.6-2.3); Potassium 4.4 mmol/L (3.4-5.0); Sodium 132 mmol/L (137-145)
[2020-07-29 05:56] LABS: Platelet Estimate Adequate (Adequate)
[2020-07-29 05:57] LABS: Hypochromasia 2+ (NORMAL); Microcytosis 1+ (NORMAL)
[2020-07-29] MEDS: LEVOTHYROXINE SODIUM INJ 100 MCG/5 ML VIAL 37.5 MCG IV PUSH (05:59)
[2020-07-29 06:17] LABS: Glucose Point of Care 115 (65-105)
[2020-07-29 07:40] LABS: Glucose Point of Care 119 (65-105)
[2020-07-29] MEDS: PANTOPRAZOLE SODIUM IV 40 MG VIAL IV PUSH ×2 (08:57→21:10)
--- NOTE | 2020-07-29 09:34 | P.PNIM_ITS ---
Progress Note: A&P Assessment and Plan (1) Abnormal computed tomography of abdomen and pelvis: Code(s): R93.5 - Abnormal findings on diagnostic imaging of other abdominal regions, including retroperitoneum Status: Acute Assessment and Plan: * Stomach markedly distended with possible stricture of the first portion of the duodenum and ulcer of the gastric antrum. * NG tube was been placed for decompression and is intact today. * She has been started on Protonix BID. * Dr. Seay has been consulted and his input is appreciated. Plan for EGD today. (2) Gastric ulcer: Qualifiers: Gastric ulcer chronicity: acute Gastric ulcer complication status: without hemorrhage or perforation Qualified Code(s): K25.3 - Acute gastric ulcer without hemorrhage or perforation Code(s): K25.9 - Gastric ulcer, unspecified as acute or chronic, without hemorrhage or pe rforation Status: Acute Assessment and Plan: * Patient was first noted to have a prepyloric ulcer and moderate erosive gastritis in the antrum by EGD 01/28/[address] Seay. * Repeat EGD more recently 06/10/20 showed some improvement in these areas, but it is noted at that time that the biopsy was positive for a fungal element and Dr Seay prescribed antifungal therapy. * Continue PPI and appreciate input from Dr Seay. (3) Hyponatremia: Code(s): E87.1 - Hypo-osmolality and hyponatremia Status: Acute Assessment and Plan: * Improving. [place] to be secondary to dehydration from poor oral intake the past few days. * Continue IV hydration for now while NPO and monitor fluid status, monitor BMP. (4) Essential hypertension: Code(s): I10 - Essential (primary) hypertension Status: Acute Assessment and Plan: * On review of previous records, noted that blood pressures have historically been poorly controlled. * As she is NPO at this time, her antihypertensives are on hold. * She is normally on clonidine 0.1 mg BID, replaced with clonidine patch while NPO. * Hydralazine PRN for severely high blood pressure. 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 Metformin and insulin on hold at this time. Continue to monitor with Accu-Cheks, cover with SSI. (6) Gastroesophageal reflux disease: Qualifiers: Esophagitis presence: without esophagitis Qualified Code(s): K21.9 - Gastro-esophageal reflux disease without esophagitis Code(s): K21.9 - Gastro-esophageal reflux disease without esophagitis Status: Acute Assessment and Plan: * See above, Protonix BID. (7) Chronic back pain: Qualifiers: Back pain location: back pain in unspecified location Back pain laterality: unspecified Qualified Code(s): M54.9 - Dorsalgia, unspecified; G89.29 - Other chronic pain Code(s): M54.9 - Dorsalgia, unspecified; G89.29 - Other chronic pain Status: Acute Assessment and Plan: * Intrathecal pain pump with morphi
--- NOTE | 2020-07-29 09:34 | PM.IMPN ---
Progress Note: A&P Assessment and Plan (1) Abnormal computed tomography of abdomen and pelvis: Code(s): R93.5 - Abnormal findings on diagnostic imaging of other abdominal regions, including retroperitoneum Status: Acute Assessment and Plan: Stomach markedly distended with possible stricture of the first portion of the duodenum and ulcer of the gastric antrum. NG tube was been placed for decompression and is intact today. She has been started on Protonix BID. Dr. Seay has been consulted and his input is appreciated. Plan for EGD today. (2) Gastric ulcer: Qualifiers: Gastric ulcer chronicity: acute Gastric ulcer complication status: without hemorrhage or perforation Qualified Code(s): K25.3 - Acute gastric ulcer without hemorrhage or perforation Code(s): K25.9 - Gastric ulcer, unspecified as acute or chronic, without hemorrhage or perforation Status: Acute Assessment and Plan: Patient was first noted to have a prepyloric ulcer and moderate erosive gastritis in the antrum by EGD 01/28/[address] Seay. Repeat EGD more recently 06/10/20 showed some improvement in these areas, but it is noted at that time that the biopsy was positive for a fungal element and Dr Seay prescribed antifungal therapy. Continue PPI and appreciate input from Dr Seay. (3) Hyponatremia: Code(s): E87.1 - Hypo-osmolality and hyponatremia Status: Acute Assessment and Plan: Improving. [place] to be secondary to dehydration from poor oral intake the past few days. Continue IV hydration for now while NPO and monitor fluid status, monitor BMP. (4) Essential hypertension: Code(s): I10 - Essential (primary) hypertension Status: Acute Assessment and Plan: On review of previous records, noted that blood pressures have historically been poorly controlled. As she is NPO at this time, her antihypertensives are on hold. She is normally on clonidine 0.1 mg BID, replaced with clonidine patch while NPO. Hydralazine PRN for severely high blood pressure. 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 Metformin and insulin on hold at this time. Continue to monitor with Accu-Cheks, cover with SSI. (6) Gastroesophageal reflux disease: Qualifiers: Esophagitis presence: without esophagitis Qualified Code(s): K21.9 - Gastro-esophageal reflux disease without esophagitis Code(s): K21.9 - Gastro-esophageal reflux disease without esophagitis Status: Acute Assessment and Plan: See above, Protonix BID. (7) Chronic back pain: Qualifiers: Back pain location: back pain in unspecified location Back pain laterality: unspecified Qualified Code(s): M54.9 - Dorsalgia, unspecified; G89.29 - Other chronic pain Code(s): M54.9 - Dorsalgia, unspecified; G89.29 - Other chronic pain Status: Acute Assessment and Plan: Intrathecal pain pump with morphine for treatment of chronic lower back pain. (8) Chronic anemia: Code(s): D64.9 - Anemia, unspecified Status: Acute Assessment and Plan: H&H slightly lower than her baseline. No evidence of acute bleeding. Will monitor. (9) Hypothyroidism: Qualif
[2020-07-29] MEDS: LACTATED RINGERS 1,000 ML 150 ML IV CONT (12:44)
[2020-07-29 13:01] LABS: Glucose Point of Care 116 (65-105)
--- NOTE | 2020-07-29 13:01 | WPDANESEPPF ---
Anes - Initial Pre Proc Eval Procedure: Operation Date: 07/29/20 13:30 Proposed Procedures p Esophagogastroduodenoscopy - Raymundo Nova MD Date/Time: 07/29/20 13:01 Surgeon: SHANI Rodriguez Pre Op Diagnosis: Abdominal and back pain. Patient Data Age: 80 Gender: F Height: 1.68 m Weight: 57.1 kg Last Vital Signs Temp 36.7 C 07/29/20 12:30 Pulse 73 07/29/20 12:30 Resp 16 07/29/20 12:30 BP 179/62 H 07/29/20 12:30 Pulse Ox 97 07/29/20 12:53 Allergies Allergy/AdvReac Type Severity Reaction Status Date / Time No Known Allergies Allergy Verified 07/29/20 12:39 Home Medications Medication Instructions Recorded Confirmed Type metoclopramide HCl 10 mg tablet 10 mg PO Q6H PRN #360 tablet 10/01/19 07/28/20 Rx cetirizine 10 mg tablet 10 mg PO DAILY 11/23/19 07/28/20 History oxycodone-acetaminophen 1 tablet PO TID 01/25/20 07/28/20 History amitriptyline 25 mg tablet 25 mg PO HS #90 tablet 02/04/20 07/28/20 Rx levothyroxine 75 mcg tablet 75 mcg PO DAILY #90 tablet 04/21/20 07/28/20 Rx Lantus Solostar U-100 Insulin 14 unit SUBCUT QAM 04/28/20 07/28/20 History trazodone 100 mg PO HS 04/28/20 07/28/20 History clonidine HCl 0.1 mg tablet 0.1 mg PO BID #180 tablet 05/05/20 07/28/20 Rx amlodipine 5 mg tablet 5 mg PO QAM #90 tablet 06/05/20 07/28/20 Rx linaclotide 72 mcg capsule 72 mcg PO DAILY #90 cap 06/05/20 07/28/20 Rx metformin 1,000 mg tablet 1,000 mg PO BID #180 tablet 06/05/20 07/28/20 Rx pantoprazole 40 mg tablet,delayed 40 mg PO DAILY #30 tablet 06/17/20 07/28/20 Rx release Dilaudid 20.4 mcg CONTINUOUS SUB-Q INFUSN 07/28/20 07/28/20 History (VIA WEARABLE INJECTR) USEASDIRECTD acetaminophen [Tylenol Arthritis 650 mg PO DAILY PRN 07/28/20 07/28/20 History Pain] ascorbic acid (vitamin C) [Vitamin 1,000 mg PO DAILY 07/28/20 07/28/20 History C] atorvastatin 40 mg PO DAILY 07/28/20 07/28/20 History ibuprofen [Advil Liqui-Gel] 400 mg PO BID PRN 07/28/20 07/28/20 History lisinopril 20 mg PO BID 07/28/20 07/28/20 History morphine 100 mg PO TID 07/28/20 07/28/20 History ambjfzjv-fze-OO-lycopen-lutein 1 tablet PO DAILY 07/28/20 07/28/20 History [Centrum Silver] Laboratory Tests 07/28/20 07/28/20 07/28/20 14:47 16:29 17:37 WBC RBC Hgb Hct MCV MCH MCHC RDW Plt Count MPV Immature Gran % (Auto) Neut % (Auto) Lymph % (Auto) [place] % (Auto) Eos % (Auto) Baso % (Auto) Lymph # (Auto) [place] # (Auto) Eos # (Auto) Baso # (Auto) Abs Immat Gran (auto) Absolute Neuts (auto) Absolute Nucleated RBC Nucleated RBC % Platelet Estimate Hypochromasia Microcytosis Sodium Potassium Chloride Carbon Dioxide Anion Gap BUN Creatinine Estim Creat Clear Calc Estimated GFR Glucose POC Capillary Glucose 145 mg/dl H mg/dl (65-105) Hemoglobin A1c Calcium Magnesium Total Bilirubin AST ALT Alkaline Phosphatase Total Protein Albumin Lipase TSH (Reflex) Urine Color Colorless (Yellow) Urine Appearance Clear (Clear) Urine pH 6.0 (5.0-9.0) Ur Specific [place] 1.019 (1.001-1.035) Urine Protein 1+ mg/dL H mg/dL (Negative) Urine Glucose (UA) Negative mg/dL mg/dL (Negative) Urine Ketones Negative mg/dL mg/dL (Negative) Ur Blood (Man) Negative (Negative) Urine Nitrate Negative (Negative) Urine Bilir
--- NOTE | 2020-07-29 13:10 | WPDGICN ---
Assessment and Plan Assessment and plan (1) Pyloric ulcer: Code(s): K25.9 - Gastric ulcer, unspecified as acute or chronic, without hemorrhage or perforation Status: Acute Assessment and Plan: she has a known pyloric ulcer in last EGD, biopsies at that time showed fungal element and I prescribed itraconazole, I am not sure if she took the medication I think she has gastric outlet obstruction from ulcer, will proceed with egd. More recommendations after EGD probably will need infectious disease and surgery consult based on findings. (2) Gastric outlet obstruction: Code(s): K31.1 - Adult hypertrophic pyloric stenosis Status: Acute (3) Chronic anemia: Code(s): D64.9 - Anemia, unspecified Status: Acute Assessment and Plan: will monitor, history of large ulcer in stomach (4) Stricture, duodenum: Code(s): K31.5 - Obstruction of duodenum Status: Acute Assessment and Plan: from ulcer. EGD today (5) Spinal stenosis: Qualifiers: Spinal region: lumbar Neurogenic claudication status: unspecified Qualified Code(s): M48.061 - Spinal stenosis, lumbar region without neurogenic claudication Code(s): M48.00 - Spinal stenosis, site unspecified Status: Acute Assessment and Plan: on chronic pain killers (6) Opioid dependence: Qualifiers: Substance use status: uncomplicated Qualified Code(s): F11.20 - Opioid dependence, uncomplicated Code(s): F11.20 - Opioid dependence, uncomplicated Status: Acute (7) Weight loss: Code(s): R63.4 - Abnormal weight loss Status: Acute Assessment and Plan: colonoscopy several months ago. EGD found ulcer GI Consult Note Consult date/time: 07/29/20 13:10 Reason for consult: nausea, anorexia HPI: Brandi Shepherd is a 80 year old female chronic back pain with pain pump in situ and chronic use of narcotics, insulin-dependent diabetes, constipation and hypertension who is known to me from previous hospitalization when she was admitted with overflow diarrhea, weight loss and chronic anemia. I performed colonoscopy 01/2020 but no major findings. EGD had prepyloric ulcer. Repeat EGD 05/2020 as outpatient showed similar ulcer with bx + fungal element (she has been using ppi and also I ordered antifungal therapy after result of biopsy- itraconazole). She is not the best historian and is telling me that does not remember if she used the medication that I prescribed She came to the emergency department with 2-3 days of bloating discomfort and lack of appetite, tried oral antacid without much benefit, also nausea but no vomiting, no hematemesis. A CT of the abdomen and pelvis showed arked distention of the stomach with possible stricture of the first portion of the duodenum and possible ulcer of the gastric antrum. NGT was placed and she has been npo. She also has chronic anemia with hb 8.3 on arrival. Review of Systems Review of Systems: ROS unobtainable: Yes other Constitutional: Constitutional: Reports poor appetite and Reports weight loss Eyes: Eyes: Denies blurry vision ENT: Reports Normal hearing present, Denies headache(s) and Denies neck pain Cardiovascular: Cardiovascular: Denies chest pain and Denies dyspnea Respiratory: Respiratory: Denies dyspnea Gastrointestinal: Gastrointestinal: Reports nausea Genitourinary: Genitourinary: Denies dysuria Musculoskeletal: Musculoskeletal: Denies neck pain Integumentary/Breasts: Skin/Breast: Denies dry skin Neurologic: Reports Normal hearing present Psychiatric: Psychiatric: Denies anxiety Endocrine: Endocrine: Denies change in body appearance Hematologic/Lymphatic: Hematologic/Lymphatic: Denies easy bleeding Allergic/Immunologic: Allergic/Immunologic: Denies urticaria PMF Past Medical History Medical History (Updated 07/29/20 @ 13:53 by Raymundo Nova MD) Arteriosclerosis of both carotid arteries Ar
[2020-07-29 14:00] LABS: Glucose Point of Care 112 (65-105)
--- NOTE | 2020-07-29 16:39 | PM.CNGS ---
Assessment and Plan Assessment and plan (1) Gastric outlet obstruction: Code(s): K31.1 - Adult hypertrophic pyloric stenosis Status: Acute Assessment and Plan: Since this is not complete will not immediately proceed to surgery. I agree with the plan to continue NG decompression overnight to allow the stomach to relax. That perhaps this could be removed and the patient be tried on clear liquids for several days as we further treat this. Also will need to await the biopsies. If this returns a malignancy will certainly need to consider surgical intervention. However, if it does not I would certainly recommend conservative management in this elderly female who is somewhat frail. She has multiple medical comorbidities including diabetes, hypertension, and history of atrial fibrillation. I have discussed the situation with Dr. Seay and he is planning to let her try clear liquids. Continue the high-dose Protonix and consult Parres she sees regarding the possibility that a fungus is involved in inflammatory changes at the ulcer site. Certainly will have to monitor her oral intake and see if she can take enough calories in a liquid manner to allow the ulcer to heal and see whether not this stricture will resolve. Believe a good trial of conservative management is reasonable for thiselderly lady with multiple comorbidities. (2) Pyloric ulcer: Code(s): K25.9 - Gastric ulcer, unspecified as acute or chronic, without hemorrhage or perforation Status: Acute Assessment and Plan: This been present for sometime please see previous EGD reports. Also see gastric outlet plan above. (3) Atrial fibrillation: Qualifiers: Atrial fibrillation type: unspecified Qualified Code(s): I48.91 - Unspecified atrial fibrillation Code(s): I48.91 - Unspecified atrial fibrillation Status: Acute Assessment and Plan: Because of her other comorbidities apparently she is not on any anticoagulation at this time period (4) Chronic anemia: Code(s): D64.9 - Anemia, unspecified Status: Acute Assessment and Plan: this is been present for least a year. It is perhaps secondary to either iron deficiency or the ulcer. Consider further workup of the anemia to define it better during this admission if this is not been done recently. (5) Hypothyroidism: Qualifiers: Hypothyroidism type: unspecified Qualified Code(s): E03.9 - Hypothyroidism, unspecified Code(s): E03.9 - Hypothyroidism, unspecified Status: Acute Assessment and Plan: Patient on replacement for this primary care service handling the problem. (6) Essential hypertension: Code(s): I10 - Essential (primary) hypertension Status: Acute Assessment and Plan: Patient on oral medication for this. While NPO primary service is substituting a patch plus IV medication p.r.n. if needed (7) Colon, diverticulosis: Code(s): K57.30 - Diverticulosis of large intestine without perforation or abscess without bleeding Status: Acute Assessment and Plan: patient has been on a high-fiber diet but this will have to be held until the stenosis at her distal stomach is resolved. (8) Constipation: Qualifiers: Constipation type: other constipation type Qualified Code(s): K59.09 - Other constipation Code(s): K59.00 - Constipation, unspecified Status: Acute Assessment and Plan: This most likely use secondary to the use of hydrocodone which she uses along with the Dilaudid that is in the pain pump for her significant back pain. She is on Liziness to try to counteract the effects of the narcotic pain pills on her got. History of Present Illness Consult details Consult date: 07/29/20 Reason for consult: abdominal pain Requesting physician: Raymundo Nova MD Narrative: Brandi Shepherd is an 80-year-old White female with chronic back
[2020-07-29] MEDS: SODIUM CHLORIDE 0.9% IV 1,000 ML 60 ML IV CONT (17:03)
[2020-07-29 18:10] LABS: Glucose Point of Care 129 (65-105)
[2020-07-30] VITALS (7 sets, daily range): BP systolic 142–182; BP diastolic 59–79; PULSE 83–92; RESP 16; TEMP 35.6–36.8; O2SAT 94–98
[2020-07-30 00:22] LABS: Glucose Point of Care 134 (65-105)
[2020-07-30 04:57] LABS: Basophils Absolute Auto 0.1 K/mm3 (0.0-0.1); Basophils Percent Auto 0.5 % (0.2-1.2); Eosinophils Absolute Auto 0.2 K/mm3 (0-0.3); Hematocrit 28.9 % (37.0-47.0); Hemoglobin 8.5 g/dL (12.0-15.0); Immature Granulocyte Absolute 0.08 K/mm3 (0.00-0.031); Immature Granulocyte Percent A 0.5 % (0-0.5); Lymphocytes Percent Auto 13.5 % (18.3-44.2); Mean Corpuscular HGB Conc 29.4 g/dl (32-36); Mean Corpuscular Hemoglobin 26.7 pg (26-34); Mean Corpuscular Volume 90.9 fl (80-100); Mean Platelet Volume 9.5 fl (7.4-10.4); Monocytes Absolute Auto 1.5 K/mm3 (0.1-0.6); Monocytes Percent Auto 9.5 % (2.6-8.5); Neutrophils Absolute Auto 11.6 K/mm3 (1.3-6.7); Platelet Count Result 424 k/mm3 (150-375); Red Blood Count 3.18 M/mm3 (4.2-5.4); Red Cell Distribution Width 17.3 % (11.5-14.5); White Blood Count 15.5 K/mm3 (4.5-10.0)
[2020-07-30 05:14] LABS: Anion Gap 5 mmol/L (8-16); Blood Urea Nitrogen 11 mg/dL (7-17); Calcium 8.9 mg/dL (8.4-10.2); Carbon Dioxide 31 mmol/L (22-30); Chloride 97 mmol/L (98-107); Estimated CRCL calculation 49 ml/min; Estimated Glomerular Filt Rate > 60; Glucose 119 mg/dL (65-105); Magnesium 1.6 mg/dL (1.6-2.3); Ovalocytes 1+ (NORMAL); Platelet Estimate Adequate (Adequate); Potassium 3.9 mmol/L (3.4-5.0); Sodium 133 mmol/L (137-145)
[2020-07-30 05:16] LABS: Hypochromasia 2+ (NORMAL); Transferrin 215 mg/dL (206-381)
[2020-07-30 05:17] LABS: Microcytosis 1+ (NORMAL)
[2020-07-30 05:23] LABS: Iron 22 ug/dL (37-170)
[2020-07-30 05:32] LABS: Percent Iron Saturation 7 % (20-50)
[2020-07-30] MEDS: ONDANSETRON INJ 4 MG/2 ML VIAL IV PUSH ×3 (05:51→20:34)
[2020-07-30] MEDS: hydrALAZINE HCL 20 MG/ML VIAL 10 MG IV PUSH ×2 (05:58→20:34)
[2020-07-30] MEDS: LEVOTHYROXINE SODIUM INJ 100 MCG/5 ML VIAL 37.5 MCG IV PUSH (06:00)
[2020-07-30 06:06] LABS: Glucose Point of Care 119 (65-105)
[2020-07-30 06:15] LABS: Folic Acid 12.1 ng/mL (2.76->20)
[2020-07-30] MEDS: MAGNESIUM SULF 2 GM/WATER 50ML 2 GM/50 ML BAG IVPB (08:28)
[2020-07-30] MEDS: SODIUM CHLORIDE 0.9% IV 1,000 ML 60 ML IV CONT (08:28)
[2020-07-30] MEDS: PANTOPRAZOLE SODIUM IV 40 MG VIAL IV PUSH ×2 (08:29→20:34)
--- NOTE | 2020-07-30 11:10 | PM.IMPN ---
Progress Note: A&P Assessment and Plan (1) Gastric ulcer: Qualifiers: Gastric ulcer chronicity: acute Gastric ulcer complication status: without hemorrhage or perforation Qualified Code(s): K25.3 - Acute gastric ulcer without hemorrhage or perforation Code(s): K25.9 - Gastric ulcer, unspecified as acute or chronic, without hemorrhage or perforation Status: Acute Assessment and Plan: Patient with history of gastric ulcer presents with abdominal pain; imaging with significant abdominal distension. EGD yesterday 07/[address] Seay showed again this large ulcer now with moderate stenosis at the pyloric/duodenal bulb causing a partial gastric outlet obstruction. Biopsies again taken including fungal culture. Recent EGD 06/10/20 showed the some improvement of the ulcer, but it is noted at that time that the biopsy was noted to have fungal yeast cells and Dr Seay prescribed antifungal therapy at that time. Continue PPI and appreciate input from Dr Seay. NG intact this morning and appreciate his input regarding diet/NG. Given the partial gastric outlet obstruction; general surgery was consulted - appreciate recommendations. Plan is for conservative management at this time while awaiting biopsy results. Given the fungal yeast cells on gastric ulcer biopsy May 2020; infectious disease was consulted - appreciate input. Await fungal culture. Differential could include histoplasmosis or cryptococcosis. (2) Hyponatremia: Code(s): E87.1 - Hypo-osmolality and hyponatremia Status: Acute Assessment and Plan: Improving. [place] to be secondary to dehydration from poor oral intake the past few days. Continue IV hydration for now while NPO and monitor fluid status, monitor BMP. (3) Essential hypertension: Code(s): I10 - Essential (primary) hypertension Status: Acute Assessment and Plan: On review of previous records, noted that blood pressures have historically been poorly controlled. As she is NPO at this time, her antihypertensives are on hold. She is normally on clonidine 0.1 mg BID, replaced with clonidine patch while NPO. Hydralazine PRN for severely high blood pressure. Hopefully can achieve better control once her diet is advanced. (4) Type 2 diabetes mellitus with diabetic polyneuropathy: Qualifiers: Diabetes mellitus custodial insulin use: with custodial use Qualified Code(s): E11.42 - Type 2 diabetes mellitus with diabetic polyneuropathy; Z79.4 - group home (current) use of insulin Code(s): E11.42 - Type 2 diabetes mellitus with diabetic polyneuropathy Status: Acute Assessment and Plan: Hgb A1c 6.1. Metformin and insulin on hold at this time. Continue to monitor with Accu-Cheks, cover with SSI. (5) Gastroesophageal reflux disease: Qualifiers: Esophagitis presence: without esophagitis Qualified Code(s): K21.9 - Gastro-esophageal reflux disease without esophagitis Code(s): K21.9 - Gastro-esophageal reflux disease without esophagitis Status: Acute Assessment and Plan: See above, Protonix BID. (6) Chronic back pain: Qualifiers: Back pain location: back pain in unspecified location Back pain laterality: unspecified Qualified Code(s): M54.9 - Dorsalgia, unspecified; G89.29 - Other chronic pain Code(s): M54.9 - Dorsalgia, unspecified; G89.29 - Other chronic pain Status: Acute Assessment and Plan: Intrathecal pain pump with dilaudid for treatment of chronic lower back pain and can continue IV Tylenol. (7) Chronic anemia: Code(s): D64.9 - Anemia, unspecified Status: Acute Assessment and Plan:
[2020-07-30 11:48] LABS: Glucose Point of Care 144 (65-105)
--- NOTE | 2020-07-30 12:25 | WPDINFPN2 ---
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 REC Serologies, fungal BC, redo CXR, new histopathology in process, find out from son if she ever completed her prescribed itraconaole (though even if she did, it likely was ineffective due to her PPI). She will need antfungal treatment, but aim to first identify her organism if possible. Subjective Date/time seen: 07/30/20 12:25 Objective Data Vital Signs Vital Signs: Vital Signs - 24 hr 07/29/20 12:30 07/29/20 12:53 07/29/20 13:46 Temperature 36.7 C Pulse Rate 73 85 Respiratory Rate 16 21 H Blood Pressure 179/62 H 180/64 H Pulse Oximetry 97 97 92 07/29/20 13:56 07/29/20 14:00 07/29/20 14:06 Temperature 36.3 C L Pulse Rate 84 84 78 Respiratory Rate 17 17 15 Blood Pressure 174/75 H 204/76 H 168/54 H Pulse Oximetry 91 93 92 07/29/20 14:16 07/29/20 17:00 07/29/20 19:45 Temperature 36.9 C Pulse Rate 78 87 Respiratory Rate 19 16 Blood Pressure 169/48 H 179/69 H 210/80 H Pulse Oximetry 91 97 07/30/20 00:24 07/30/20 06:00 07/30/20 06:15 Temperature 36.6 C Pulse Rate 86 Respiratory Rate 16 Blood Pressure 169/73 H 182/59 H 175/78 H Pulse Oximetry 96 Intake/Output Intake/Output: Intake & Output 07/27/20 07/28/20 07/29/20 07/30/20 23:59 23:59 23:59 23:59 Intake Total 1500 1200 1100 Output Total 1075 1930 Balance 1500 125 -830 Meds/Results Medications: Active Medications Generic Name Dose Route Start Last Admin Trade Name Freq PRN Reason Stop Dose Admin Clonidine HCl 1 patch 07/28/20 23:05 07/29/20 00:21 [id number] TRANSDERM 1 patch WEEKLY CHAS Administration Dextrose 12.5 gm 07/28/20 23:03 Dextrose 50% Syringe IV PUSH PRN PRN Hypoglycemia Protocol Glucagon 1 mg 07/28/20 23:03 Glucagon For Inj IM PRN PRN Hypoglycemia Protocol Glucose 15 gm 07/28/20 23:03 Glutose 15 PO PRN PRN Hypoglycemia Protocol Hydralazine HCl 10 mg 07/28/20 23:03 07/30/20 05:58 Apresoline Hcl Inj IV PUSH 10 mg Q6H PRN Administration SBP > 165 or DBP > 105 Sodium Chloride 1,000 mls @ 60 mls/hr 07/28/20 16:00 07/30/20 08:28 Normal Saline Iv IV CONT 60 mls/hr .[id number] CHAS Administration Dextrose 1,000 mls @ 100 mls/hr 07/28/20 23:03 Dextrose 5% 1,000 Ml IVPB PRN PRN Hypoglycemia Protocol Acetaminophen 1,000 mg in 100 mls @ 400 mls/hr 07/29/20 15:37 07/30/20 06:05 Ofirmev 1,000 Mg Ivpb IVPB 07/30/20 15:38 Infused Q6H PRN Infusion Pain or Fever Insulin Aspart 2 - 5 units 07/29/20 08:00 07/30/20 11:55 Novolog SUB-Q Not Given TIDWM [facility] Protocol Levothyroxine Sodium 37.5 mcg 07/29/20 06:30 07/30/20 06:00 Synthroid Inj IV PUSH 37.5 mcg DAILY@0630 CHAS Administration Nonformulary Drug 0 mcg 07/28/20 23:15 Dilaudid 488.5 Mcg ( XX 08/27/20 23:16 20.4 Mcg/Hr) DIRECTED CHAS Ondansetron HCl 4 mg 07/28/20 15:57 07/30/20 05:51 Zofran Inj IV PUSH 4 mg Q4H PRN Administration Nausea Pantoprazole Sodium 40 mg 07/29/20 09:00 07/30/20 08:29 Protonix Iv IV PUSH 40 mg Q12HR CHAS Administration Radiology Results: ITS Impressions Abdomen/Pelvis CT 07/28/20 13:49 IMPRESSION: 1. Marked distention of the stomach with possible stricture of the first portion of the duodenum and possible ulcer of the gastric antrum. Endoscopy is recommended. 2. Cholelithiasis without evidence of cholecystitis.
--- NOTE | 2020-07-30 13:47 | CONS_ITS ---
DATE OF CONSULTATION: 07/30/2020 REASON FOR CONSULTATION: Fungal gastritis. HISTORY OF PRESENT ILLNESS: The patient is an 80-year-old female who was found to have pyloric ulcer in January of this year with benign pathology and no H pylori identified. She was placed on a proton pump inhibitor. She had repeat endoscopy on June 17 of this year. Biopsy revealed invasive fungal infection with morphology suggesting cryptococcus or histoplasma. The ulcer itself was smaller in size at the time. Itraconazole for a 10-day course was prescribed. Patient cannot remember she ever took any of it. She was admitted to the hospital for inpatient stay on July 29 with abdominal pain, nausea, poor appetite, weight loss, back pain, bloating. She has had no fever, chills, or sweats. She has been on no antibacterial therapy in recent weeks that she can recall. She did see her primary care physician about 3 weeks before admission and no new medications were prescribed. There is no note at the time of any antifungal therapy being given at the time. The patient had repeat endoscopy performed the day after admission and consultation now requested. She is on no antimicrobials presently. She denies shortness of breath, cough, sputum production, chest pain, skin rashes, or arthralgias. 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 The patient is from [place] and moved to [place], [place] some 10 to 12 years ago. 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 She has no pets here; while in [place], did have several dogs as pets. No exotic animals. She has never lived for any extent in the [facility], has never lived overseas. She has had no ill household contacts. ALLERGIES: NONE KNOWN. PRESENT MEDICATIONS: Extensive list reviewed. No immunosuppressants. HABITS: No tobacco. No alcohol. PAST MEDICAL HISTORY: Carotid atherosclerosis, degenerative joint disease, AF, left breast cancer about 1999, gallstones, chronic anemia, chronic back pain with a pain pump refilled every 2-3 months, previous stroke, depression, diverticulosis, hypertension, gastric outlet obstruction associated with the above, GERD, hyperlipidemia, hypothyroidism, osteoporosis, overflow incontinence, type 2 diabetes mellitus with peripheral neuropathy, previous bladder surgery, hysterectomy, mastectomy, and spinal surgery. FAMILY HISTORY: Stroke and heart disease. SOCIAL HISTORY: She lives with her son and grandson. 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 No family at the bedside presently. REVIEW OF SYSTEMS: 14-point review otherwise negative. PHYSICAL EXAMINATION: GENERAL: This is an elderly female who is thin, in no acute distress. Extensive weight loss. VITAL SIGNS: Afebrile, 182/59, 86, 16, 96% on room air. SKIN: Warm and dry. No ulcers, necrotic lesions, petechiae. No rash. Skin is warm and dry. EENT: Pupils equal, round, reactive to light. The oropharynx, oral mucosa entirely normal. Teeth in good repair. NECK: No masses, thyromegaly, tenderness, meningismus. LUNGS: Clear to auscultation and percussion. BACK: No spinal tenderness. CARDIAC: Soft S1 and S2, irregular. No gallops, no rubs. ABDOMEN: Analgesic pump, left lower quadrant without overlying erythema, tenderness or fluctuance. The abdomen is nontender and soft. No masses. EXTREMITIES: Muscle wasting. No clubbing, cyanosis, edema. NEUROLOGIC: Awake, alert, oriented, appropriate. LABORATORY STUDIES: I reviewed the pathology reports from her biopsy, 06/17/2020. Her white blood cell count 13.5 earlier, now 15.5; hemoglobin 8.5; platelets are 424. Minimal left shift on differential. Sodium low 133, potassium normal, chl
--- NOTE | 2020-07-30 15:26 | WPDGIPROGNO ---
Progress Note: A&P Assessment and Plan (1) Pyloric ulcer: Code(s): K25.9 - Gastric ulcer, unspecified as acute or chronic, without hemorrhage or perforation Status: Acute Assessment and Plan: preliminary fungal culture positive for fungal elements. ID on board and awaiting on final result before treatment (2) Gastric outlet obstruction: Code(s): K31.1 - Adult hypertrophic pyloric stenosis Status: Acute Assessment and Plan: partial GOO due to pyloric channel ulcer, apparently with fungal infection but was able to traverse with scope into second portion duodenum. She can have liquid diet for now. If she can not tolerate another alternative will be nasojejunal DHT placement for feeding, stent or even surgery (for now conservative approach to see clinical course) (3) Fungal infection: Code(s): B49 - Unspecified mycosis Status: Acute Assessment and Plan: ulcer with fungal elements, probably that is the reason of persistent large ulcer ID on board continue with ppi bid (4) Stricture, duodenum: Code(s): K31.5 - Obstruction of duodenum Status: Acute (5) Chronic anemia: Code(s): D64.9 - Anemia, unspecified Status: Acute Assessment and Plan: multifactorial but also from egd findings Subjective Date/time seen: 07/30/20 15:26 Interval history: egd yesterday showed persistent large ulcer in pyloric channel with partial gastric outlet obstruction, I was able to traverse with scope to distal duodenum with some resistance. NGT removed earlier by accident but denies nausea or pain. Review of Systems Review of Systems: All systems reviewed & are unremarkable except as noted in HPI and below Exam Const: Other: frail elderly, no distress Eyes: Pupils: Equal, round and reactive pupils present Neck: Neck: supple Resp: Auscultation: clear to auscultation bilaterally Cardio: Rate: regular rate GI: GI Palp: Yes Tenderness to palpation present (GI) (mild ttp in epigastric, no rebound) and No Guarding due to palpation present (GI) Auscultation: normal bowel sounds Skin: General skin exam: pallor Neuro: Speech: normal speech Motor exam (neuro): Normal motor muscle tone present throughout Extrem: General: normal to inspection Objective Data Vital Signs Vital Signs: Vital Signs - 24 hr 07/29/20 17:00 07/29/20 19:45 07/30/20 00:24 Temperature 98.4 F Pulse Rate 87 Respiratory Rate 16 Blood Pressure 179/69 H 210/80 H 169/73 H Pulse Oximetry 97 07/30/20 06:00 07/30/20 06:15 07/30/20 14:00 Temperature 97.8 F 96.1 F L Pulse Rate 86 83 Respiratory Rate 16 16 Blood Pressure 182/59 H 175/78 H 153/79 H Pulse Oximetry 96 94 Intake/Output Intake/Output: Intake & Output 07/27/20 07/28/20 07/29/20 07/30/20 23:59 23:59 23:59 23:59 Intake Total 1500 1200 1200 Output Total 1075 1930 Balance 1500 125 -730 Meds/Results Medications: Active Medications Generic Name Dose Route Start Last Admin Trade Name Freq PRN Reason Stop Dose Admin Clonidine HCl 1 patch 07/28/20 23:05 07/29/20 00:21 [id number] TRANSDERM 1 patch WEEKLY CHAS Administration Dextrose 12.5 gm 07/28/20 23:03 Dextrose 50% Syringe IV PUSH PRN PRN Hypoglycemia Protocol Glucagon 1 mg 07/28/20 23:03 Glucagon For Inj IM PRN PRN Hypoglycemia Protocol Glucose 15 gm 07/28/20 23:03 Glutose 15 PO PRN PRN Hypoglycemia Protocol Hydralazine HCl 10 mg 07/28/20 23:03 07/30/20 05:58 Apresoline Hcl Inj IV PUSH 10 mg Q6H PRN Administration SBP > 165 or DBP > 105 Sodium Chloride 1,000 mls @ 60 mls/hr 07/28/20 16:00 07/30/20 08:28 Normal Saline Iv IV CONT 60 mls/hr .[id number] CHAS Administration Dextrose 1,000 mls @ 100 mls/hr 07/28/20 23:03 Dextrose 5% 1,000 Ml IVPB PRN PRN Hypoglycemia Protocol Acetaminophen 1,000 mg in 100 mls @ 400
--- NOTE | 2020-07-30 15:43 | PM.PNGS ---
Progress Note: A&P Assessment and Plan (1) Gastric outlet obstruction: Code(s): K31.1 - Adult hypertrophic pyloric stenosis Status: Acute Assessment and Plan: Since this is not complete will not immediately proceed to surgery. I agreed with the plan to continue NG decompression overnight to allow the stomach to relax. That perhaps this could be removed and the patient be tried on clear liquids for several days as we further treat this. (The NG tube now has slipped out and is being left out). Also will need to await the biopsies. If this returns a malignancy will certainly need to consider surgical intervention. However, if it does not I would certainly recommend conservative management in this elderly female who is somewhat frail. She has multiple medical comorbidities including diabetes, hypertension, and history of atrial fibrillation. I have discussed the situation with Dr. Seay and he is planning to let her try clear liquids. Continue the high-dose Protonix and consult [place] she sees regarding the possibility that a fungus is involved in inflammatory changes at the ulcer site. Certainly will have to monitor her oral intake and see if she can take enough calories in a liquid manner to allow the ulcer to heal and see whether not this stricture will resolve. Believe a good trial of conservative management is reasonable for thiselderly lady with multiple comorbidities. Will do two-view x-ray of the abdomen in the morning to be sure that she does not have a largely distended stomach again. (2) Pyloric ulcer: Code(s): K25.9 - Gastric ulcer, unspecified as acute or chronic, without hemorrhage or perforation Status: Acute Assessment and Plan: This been present for sometime please see previous EGD reports. Also see gastric outlet plan above. (3) Atrial fibrillation: Qualifiers: Atrial fibrillation type: unspecified Qualified Code(s): I48.91 - Unspecified atrial fibrillation Code(s): I48.91 - Unspecified atrial fibrillation Status: Acute Assessment and Plan: Because of her other comorbidities apparently she is not on any anticoagulation at this time period (4) Chronic anemia: Code(s): D64.9 - Anemia, unspecified Status: Acute Assessment and Plan: this is been present for least a year. It is perhaps secondary to either iron deficiency or the ulcer. Consider further workup of the anemia to define it better during this admission if this is not been done recently. (5) Hypothyroidism: Qualifiers: Hypothyroidism type: unspecified Qualified Code(s): E03.9 - Hypothyroidism, unspecified Code(s): E03.9 - Hypothyroidism, unspecified Status: Acute Assessment and Plan: Patient on replacement for this primary care service handling the problem. (6) Essential hypertension: Code(s): I10 - Essential (primary) hypertension Status: Acute Assessment and Plan: Patient on oral medication for this. While NPO primary service is substituting a patch plus IV medication p.r.n. if needed (7) Colon, diverticulosis: Code(s): K57.30 - Diverticulosis of large intestine without perforation or abscess without bleeding Status: Acute Assessment and Plan: patient has been on a high-fiber diet but this will have to be held until the stenosis at her distal stomach is resolved. (8) Constipation: Qualifiers: Constipation type: other constipation type Qualified Code(s): K59.09 - Other constipation Code(s): K59.00 - Constipation, unspecified Status: Acute Assessment and Plan: This most likely use secondary to the use of hydrocodone which she uses along with the Dilaudid that is in the pain pump for her significant back pain. She is on Liziness to try to counteract the effects of the narcotic pain pills on her got. (9) Cholelithiasis: Code(s): K80.20 - Ca
[2020-07-30 16:29] LABS: Glucose Point of Care 121 (65-105)
--- NOTE | 2020-07-30 23:48 | ECG_ITS ---
Measurements Intervals [place] Rate: 97 P: 51 AL: 148 QRS: 58 QRSD: 74 T: 63 QT: 349 QTc: 443 Interpretive Statements SINUS RHYTHM ATRIAL COUPLET, ATRIAL TRIPLET AND ATRIAL PREMATURE COMPLEXES BORDERLINE ST ABNORMALITY- ANTEROLAT/INF LEADS BASELINE ARTIFACT- I, III, AVL, V2 ABNORMAL ECG Electronically Signed On 07-31-2020 7:03:52 CDT by Cooper Last D.O.
[2020-07-31] MEDS: amLODIPine BESYLATE 5 MG TABLET PO ×2 (00:04→07:58)
[2020-07-31 00:08] LABS: Glucose Point of Care 121 (65-105)
[2020-07-31 00:56] LABS: Troponin I 0.031 ng/mL (0.000-0.034)
[2020-07-31 01:35] VITALS: BP 144/71; PULSE 85; RESP 16; TEMP 37.1; O2SAT 96
[2020-07-31] MEDS: SODIUM CHLORIDE 0.9% IV 1,000 ML 60 ML IV CONT ×2 (02:56→19:52)
[2020-07-31 03:22] LABS: Basophils Absolute Auto 0.1 K/mm3 (0.0-0.1); Basophils Percent Auto 0.6 % (0.2-1.2); Eosinophils Absolute Auto 0.2 K/mm3 (0-0.3); Eosinophils Percent Auto 2.2 % (0-4.4); Hematocrit 26.1 % (37.0-47.0); Hemoglobin 7.8 g/dL (12.0-15.0); Immature Granulocyte Absolute 0.02 K/mm3 (0.00-0.031); Immature Granulocyte Percent A 0.2 % (0-0.5); Lymphocytes Absolute Auto 1.96 K/mm3 (0.9-3.2); Lymphocytes Percent Auto 18.5 % (18.3-44.2); Mean Corpuscular HGB Conc 29.9 g/dl (32-36); Mean Corpuscular Hemoglobin 26.8 pg (26-34); Mean Corpuscular Volume 89.7 fl (80-100); Mean Platelet Volume 9.4 fl (7.4-10.4); Monocytes Absolute Auto 1.1 K/mm3 (0.1-0.6); Monocytes Percent Auto 10.5 % (2.6-8.5); Neutrophils Absolute Auto 7.2 K/mm3 (1.3-6.7); Platelet Count Result 410 k/mm3 (150-375); Red Blood Count 2.91 M/mm3 (4.2-5.4); Red Cell Distribution Width 17.1 % (11.5-14.5); White Blood Count 10.6 K/mm3 (4.5-10.0)
[2020-07-31 03:34] LABS: Anion Gap 6 mmol/L (8-16); Blood Urea Nitrogen 13 mg/dL (7-17); Calcium 8.8 mg/dL (8.4-10.2); Carbon Dioxide 27 mmol/L (22-30); Chloride 101 mmol/L (98-107); Estimated CRCL calculation 51 ml/min; Estimated Glomerular Filt Rate > 60; Glucose 144 mg/dL (65-105); Magnesium 1.8 mg/dL (1.6-2.3); Potassium 4.1 mmol/L (3.4-5.0); Sodium 134 mmol/L (137-145)
[2020-07-31 03:45] LABS: Troponin I 0.029 ng/mL (0.000-0.034)
[2020-07-31 03:49] LABS: Hypochromasia 1+ (NORMAL); Ovalocytes 1+ (NORMAL); Platelet Estimate Adequate (Adequate)
[2020-07-31 05:01] VITALS: BP 156/65; PULSE 80; RESP 16; TEMP 37; O2SAT 97
[2020-07-31] MEDS: LEVOTHYROXINE SODIUM INJ 100 MCG/5 ML VIAL 37.5 MCG IV PUSH (05:32)
[2020-07-31 05:38] LABS: Glucose Point of Care 136 (65-105)
[2020-07-31] MEDS: PANTOPRAZOLE SODIUM IV 40 MG VIAL IV PUSH ×2 (07:58→20:28)
--- NOTE | 2020-07-31 08:00 | PM.PNGS ---
Progress Note: A&P Assessment and Plan (1) Gastric outlet obstruction: Code(s): K31.1 - Adult hypertrophic pyloric stenosis Status: Acute Assessment and Plan: Since this is not complete will not immediately proceed to surgery. Also will need to await the biopsies --- preliminary result shows some fungal elements on Gram stain. If this returns a malignancy will certainly need to consider surgical intervention. However, if it does not I would certainly recommend conservative management in this elderly female who is somewhat frail. She has multiple medical comorbidities including diabetes, hypertension, and history of atrial fibrillation. I have discussed the situation with Dr. Seay and he is planning to let her try clear liquids( She has tolerated these since yesterday afternoon). Continue the high-dose Protonix and consult ID regarding the possibility that a fungus is involved in inflammatory changes at the ulcer site. Certainly will have to monitor her oral intake and see if she can take enough calories in a liquid manner to allow the ulcer to heal and see whether not this stricture will resolve. Believe a good trial of conservative management is reasonable for thiselderly lady with multiple comorbidities. Will do two-view x-ray of the abdomen in the morning to be sure that she does not have a largely distended stomach again. (2) Pyloric ulcer: Code(s): K25.9 - Gastric ulcer, unspecified as acute or chronic, without hemorrhage or perforation Status: Acute Assessment and Plan: This been present for sometime please see previous EGD reports. Also see gastric outlet plan above. (3) Atrial fibrillation: Qualifiers: Atrial fibrillation type: unspecified Qualified Code(s): I48.91 - Unspecified atrial fibrillation Code(s): I48.91 - Unspecified atrial fibrillation Status: Acute Assessment and Plan: Because of her other comorbidities apparently she is not on any anticoagulation at this time period (4) Chronic anemia: Code(s): D64.9 - Anemia, unspecified Status: Acute Assessment and Plan: this is been present for least a year. It is perhaps secondary to either iron deficiency or the ulcer. Consider further workup of the anemia to define it better during this admission if this is not been done recently. (5) Hypothyroidism: Qualifiers: Hypothyroidism type: unspecified Qualified Code(s): E03.9 - Hypothyroidism, unspecified Code(s): E03.9 - Hypothyroidism, unspecified Status: Acute Assessment and Plan: Patient on replacement for this primary care service handling the problem. (6) Essential hypertension: Code(s): I10 - Essential (primary) hypertension Status: Acute Assessment and Plan: Patient on oral medication for this. While NPO primary service is substituting a patch plus IV medication p.r.n. if needed (7) Colon, diverticulosis: Code(s): K57.30 - Diverticulosis of large intestine without perforation or abscess without bleeding Status: Acute Assessment and Plan: patient has been on a high-fiber diet but this will have to be held until the stenosis at her distal stomach is resolved. (8) Constipation: Qualifiers: Constipation type: other constipation type Qualified Code(s): K59.09 - Other constipation Code(s): K59.00 - Constipation, unspecified Status: Acute Assessment and Plan: This most likely use secondary to the use of hydrocodone which she uses along with the Dilaudid that is in the pain pump for her significant back pain. She is on Liziness to try to counteract the effects of the narcotic pain pills on her got. (9) Cholelithiasis: Code(s): K80.20 - Calculus of gallbladder without cholecystitis without obstruction Status: Acute Assessment and Plan: if surgical of enter intervention is undertaken probab
[2020-07-31] MEDS: MAGNESIUM HYDROXIDE SUSP 30 ML UDC FEED TUBE (08:09)
[2020-07-31] MEDS: IRON SUCROSE COMPLEX 100 MG in SODIUM CHLORIDE 0.9% IV 50 ML 220 MG IVPB (09:23)
[2020-07-31] MEDS: INSULIN ASPART (*BKC) 100 UNITS/ML SUB-Q (11:45)
--- NOTE | 2020-07-31 13:04 | WPDGIPROGNO ---
Progress Note: A&P Assessment and Plan (1) Pyloric ulcer: Code(s): K25.9 - Gastric ulcer, unspecified as acute or chronic, without hemorrhage or perforation Status: Acute Assessment and Plan: preliminary fungal culture positive for fungal elements. ID on board and awaiting on final result before treatment. patient also remember that I sent prescription of itraconazole to her pharmacy 2 months ago but her son told her today that never picked it up (2) Gastric outlet obstruction: Code(s): K31.1 - Adult hypertrophic pyloric stenosis Status: Acute Assessment and Plan: partial gastric outlet obstruction due to pyloric channel ulcer, apparently with fungal infection but was able to traverse with scope into second portion duodenum. continue with liquid diet for now and also add nutritional supplement like ensure. 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 Status: Acute Assessment and Plan: ulcer with fungal elements, probably that is the reason of persistent large ulcer ID on board continue with ppi bid (4) Stricture, duodenum: Code(s): K31.5 - Obstruction of duodenum Status: Acute (5) Chronic anemia: Code(s): D64.9 - Anemia, unspecified Status: Acute Assessment and Plan: multifactorial but also from egd findings (6) Constipation: Qualifiers: Constipation type: other constipation type Qualified Code(s): K59.09 - Other constipation Code(s): K59.00 - Constipation, unspecified Status: Acute Assessment and Plan: at home she was on linzess, will resume she has been using narcotics and has chronic constipation (7) Presence of intrathecal pump: Code(s): Z97.8 - Presence of other specified devices Status: Acute Assessment and Plan: she has chronic pain, using narcotics Subjective Date/time seen: 07/31/20 13:04 Interval history: she is distended because has not been able to have a good BM (h/o constipation using narcotics at home), denies nausea and has been tolerating liquid diet Review of Systems Review of Systems: All systems reviewed & are unremarkable except as noted in HPI and below Exam Const: General: cooperative, comfortable (But still c/o some abd. pain), no acute distress, alert and awake Orientation/consciousness: patient oriented x3 HENMT: Mouth: Yes moist mucous membranes Neck: Neck: normal visual inspection Chest: Chest palpation & inspection: normal inspection of the chest Resp: Effort & Inspection: normal respiratory effort Auscultation: clear to auscultation bilaterally Cardio: Jugular venous distension: no JVD Rate: regular rate Rhythm: regular rhythm GI: Inspection: scar (A infra-umbilical mid-line scar that is well-healed and no hernia) GI Palp: No Tenderness to palpation present (GI) Auscultation: normal bowel sounds Other: pain pump located in the LLQ of the abdomen. Skin: General skin exam: normal color Neuro: General: patient oriented x3 and moves all extremities Cranial nerves: Yes Normal hearing present Speech: normal speech Extrem: General: normal to inspection Psych: Mental Status: mental status grossly normal Speech and movement: Normal speech and movement present Affect: normal affect Objective Data Vital Signs Vital Signs: Vital Signs - 24 hr 07/30/20 14:00 07/30/20 20:03 07/30/20 22:30 Temperature 96.1 F L 97.8 F Pulse Rate 83 83 87 Respiratory Rate 16 16 Blood Pressure 153/79 H 177/72 H 142/70 H Pulse Oximetry 94 98 07/30/20 23:40 07/31/20 01:35 07/31/20 05:01 Temperature 98.2 F 98.7 F 98.6 F Pulse Rate 92 85 80 Respiratory Rate 16 16 16 Blood Pressure 171/74 H 144/71 H 156/65 H Pulse Oximetry 97 96 97 Intake/Output I
--- NOTE | 2020-07-31 13:35 | WPDINFPN2 ---
Progress Note: A&P Assessment and Plan (1) Gastric ulcer: Qualifiers: Gastric ulcer chronicity: acute Gastric ulcer complication status: without hemorrhage or perforation Qualified Code(s): K25.3 - Acute gastric ulcer without hemorrhage or perforation Code(s): K25.9 - Gastric ulcer, unspecified as acute or chronic, without hemorrhage or perforation Status: Acute Assessment and Plan: 1. 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 CXR = OGD, supportive of initial pulmonary infection leading to #1. No active pulmonary infection. REC Serologies for above in process, as is tissue culture and BC. Defer therapy until species available. The azoles have multiple and various drug interactions --> one of the reasons I do not recommend treatment yet. Subjective Date/time seen: 07/31/20 13:35 Interval history: NG out. Constipated. On oral and intrathecal narcotics Exam Narrative: Exam Narrative: afebrile Const: General: no acute distress Eyes: General: appearance normal, both eyes and all related structures Sclera: sclerae normal Resp: Effort & Inspection: normal respiratory effort Auscultation: clear to auscultation bilaterally Cardio: Rate: regular rate Rhythm: regular rhythm Heart sounds: no gallops and no murmurs GI: Inspection: non-distended GI Palp: Yes Soft to palpation and No Tenderness to palpation present (GI) Skin: General skin exam: normal color and no rashes or lesions noted Objective Data Vital Signs Vital Signs: Vital Signs - 24 hr 07/30/20 14:00 07/30/20 20:03 07/30/20 22:30 Temperature 35.6 C L 36.6 C Pulse Rate 83 83 87 Respiratory Rate 16 16 Blood Pressure 153/79 H 177/72 H 142/70 H Pulse Oximetry 94 98 07/30/20 23:40 07/31/20 01:35 07/31/20 05:01 Temperature 36.8 C 37.1 C 37.0 C Pulse Rate 92 85 80 Respiratory Rate 16 16 16 Blood Pressure 171/74 H 144/71 H 156/65 H Pulse Oximetry 97 96 97 Intake/Output Intake/Output: Intake & Output 09/07/20 09/08/20 09/09/20 09/10/20 23:59 23:59 23:59 23:59 Intake Total 1500 1200 1400 1535 Output Total 1075 2280 1200 Balance 1500 125 -880 335 Meds/Results Medications: Active Medications Generic Name Dose Route Start Last Admin Trade Name Freq PRN Reason Stop Dose Admin Acetaminophen 650 mg 07/31/20 00:42 Tylenol Tablet PO Q4H PRN Mild Pain (1-3) or Fever Amlodipine Besylate 5 mg 07/30/20 23:55 07/31/20 07:58 Norvasc PO 5 mg QAM CHAS Administration Clonidine HCl 1 patch 07/28/20 23:05 07/29/20 00:21 [id number] TRANSDERM 1 patch WEEKLY CHAS Administration Dextrose 12.5 gm 07/28/20 23:03 Dextrose 50% Syringe IV PUSH PRN PRN Hypoglycemia Protocol Glucagon 1 mg 07/28/20 23:03 Glucagon For Inj IM PRN PRN Hypoglycemia Protocol Glucose 15 gm 07/28/20 23:03 Glutose 15 PO PRN PRN Hypoglycemia Protocol Hydralazine HCl 10 mg 07/28/20 23:03 07/30/20 20:34 Apresoline Hcl Inj IV PUSH 10 mg Q6H PRN Administration SBP > 165 or DBP > 105 Sodium Chloride 1,000 mls @ 60 mls/hr 07/28/20 16:00 07/31/20 02:56 Normal Saline Iv IV CONT 60 mls/hr .[id number] CHAS Administration Dextrose 1,000 mls @ 100 mls/hr 07/28/20 23:03 Dextrose 5% 1,000 Ml IVPB PRN PRN Hypoglycemia Protocol Iron Sucrose 100 mg/ Sodium 55 mls @ 220 mls/hr 07/31/20 09:00 07/31/20 09:38 Chloride IVPB Infused QAM CHAS Infusion Insulin Aspart 2 - 5 units 07/29/20 08:00 07/31/20 11:45 Novolog SUB-Q 2 units TIDWM CHAS Administration Protocol Levothyroxine Sodium 37.5 mcg 07/29/20 06:30 07/31/20 05:32 Synthroid Inj IV PUSH 37.5 mcg DAILY@0630 CHAS Administration Nonformulary Drug 0 mcg 07/28/20 23:15 Dilaudid 488.5 Mcg ( XX
[2020-07-31 14:00] VITALS: BP 171/64; PULSE 87; RESP 20; TEMP 36.4; O2SAT 98
[2020-07-31 14:16] LABS: Glucose Point of Care 225 (65-105)
[2020-07-31 14:16] LABS: Glucose Point of Care 139 (65-105)
--- NOTE | 2020-07-31 15:12 | PM.IMPN ---
Progress Note: A&P Assessment and Plan (1) Gastric ulcer: Qualifiers: Gastric ulcer chronicity: acute Gastric ulcer complication status: without hemorrhage or perforation Qualified Code(s): K25.3 - Acute gastric ulcer without hemorrhage or perforation Code(s): K25.9 - Gastric ulcer, unspecified as acute or chronic, without hemorrhage or perforation Status: Acute Assessment and Plan: Patient with known history of gastric ulcer presents with abdominal pain; imaging with significant abdominal distension. EGD 07/[address] Seay showed again this large ulcer now with moderate stenosis at the pyloric/duodenal bulb causing a partial gastric outlet obstruction. Biopsies again taken including fungal culture. Recent EGD 06/10/20 showed the some improvement of the ulcer, but it is noted at that time that the biopsy was noted to have fungal yeast cells and Dr Seay prescribed antifungal therapy at that time. Continue PPI and appreciate input from Dr Seay. Given the partial gastric outlet obstruction; general surgery was consulted - appreciate recommendations. Plan is for conservative management at this time while awaiting biopsy results. Given the fungal yeast cells on gastric ulcer biopsy May 2020; infectious disease was consulted - appreciate input. Await fungal culture. Differential could include histoplasmosis or cryptococcosis. (2) Hyponatremia: Code(s): E87.1 - Hypo-osmolality and hyponatremia Status: Acute Assessment and Plan: Improving. [place] to be secondary to dehydration from poor oral intake the past few days. Continue IV hydration for now and monitor BMP. (3) Essential hypertension: Code(s): I10 - Essential (primary) hypertension Status: Acute Assessment and Plan: On review of previous records, noted that blood pressures have historically been poorly controlled. Her antihypertensives are on hold until she can tolerate more of a diet. She is normally on clonidine 0.1 mg BID, replaced with clonidine patch for now. Hydralazine PRN for severely high blood pressure. Hopefully can achieve better control once her diet is advanced. 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 Metformin and insulin on hold at this time. Continue to monitor with Accu-Cheks, cover with SSI. (5) Gastroesophageal reflux disease: Qualifiers: Esophagitis presence: without esophagitis Qualified Code(s): K21.9 - Gastro-esophageal reflux disease without esophagitis Code(s): K21.9 - Gastro-esophageal reflux disease without esophagitis Status: Acute Assessment and Plan: See above, Protonix BID. (6) Chronic back pain: Qualifiers: Back pain laterality: unspecified Back pain location: back pain in unspecified location Qualified Code(s): M54.9 - Dorsalgia, unspecified; G89.29 - Other chronic pain Code(s): M54.9 - Dorsalgia, unspecified; G89.29 - Other chronic pain Status: Acute Assessment and Plan: Intrathecal pain pump with dilaudid for treatment of chronic lower back pain and can continue tylenol. (7) Chronic anemia: Code(s): D64.9 - Anemia, unspecified Status: Acute Assessment and Plan: H&H slightly lower than her baseline. No evidence of acute bleeding. Iron panel is suggestive of
[2020-07-31 17:48] VITALS: BP 182/60; PULSE 92
[2020-07-31] MEDS: hydrALAZINE HCL 20 MG/ML VIAL 10 MG IV PUSH (17:48)
[2020-07-31 19:23] LABS: Glucose Point of Care 146 (65-105)
[2020-07-31 20:00] VITALS: PULSE 85; RESP 12; O2SAT 98
[2020-07-31] MEDS: lisinopriL 20 MG TABLET PO (20:30)
[2020-07-31 20:37] VITALS: BP 183/74; PULSE 85; RESP 12; TEMP 36.7; O2SAT 98
[2020-07-31] MEDS: ACETAMINOPHEN 325 MG TABLET 650 MG PO (20:44)
[2020-08-01] VITALS (8 sets, daily range): BP systolic 144–185; BP diastolic 56–74; PULSE 60–93; RESP 14–18; TEMP 36–36.9; O2SAT 97–100
[2020-08-01 02:42] LABS: Glucose Point of Care 127 (65-105)
[2020-08-01 05:02] LABS: Basophils Absolute Auto 0.1 K/mm3 (0.0-0.1); Basophils Percent Auto 1.1 % (0.2-1.2); Eosinophils Absolute Auto 0.4 K/mm3 (0-0.3); Eosinophils Percent Auto 6.5 % (0-4.4); Hematocrit 23.9 % (37.0-47.0); Immature Granulocyte Absolute 0.03 K/mm3 (0.00-0.031); Immature Granulocyte Percent A 0.5 % (0-0.5); Lymphocytes Absolute Auto 1.96 K/mm3 (0.9-3.2); Lymphocytes Percent Auto 29.8 % (18.3-44.2); Mean Corpuscular HGB Conc 28.9 g/dl (32-36); Mean Corpuscular Hemoglobin 26.5 pg (26-34); Mean Corpuscular Volume 91.9 fl (80-100); Mean Platelet Volume 9.5 fl (7.4-10.4); Monocytes Absolute Auto 0.8 K/mm3 (0.1-0.6); Monocytes Percent Auto 11.6 % (2.6-8.5); Neutrophils Absolute Auto 3.3 K/mm3 (1.3-6.7); Neutrophils Percent Auto 50.5 % (45.5-73.1); Platelet Count Result 350 k/mm3 (150-375); Red Cell Distribution Width 17.2 % (11.5-14.5); White Blood Count 6.6 K/mm3 (4.5-10.0)
[2020-08-01 05:31] LABS: Hemoglobin 6.9 g/dL (12.0-15.0)
[2020-08-01 05:32] LABS: Hypochromasia 1+ (NORMAL); Microcytosis 1+ (NORMAL); Ovalocytes 1+ (NORMAL); Platelet Estimate Adequate (Adequate)
[2020-08-01] MEDS: LEVOTHYROXINE SODIUM INJ 100 MCG/5 ML VIAL 37.5 MCG IV PUSH (05:45)
[2020-08-01 05:47] LABS: Anion Gap 5 mmol/L (8-16); Blood Urea Nitrogen 8 mg/dL (7-17); Calcium 8.5 mg/dL (8.4-10.2); Carbon Dioxide 28 mmol/L (22-30); Chloride 103 mmol/L (98-107); Estimated CRCL calculation 59 ml/min; Estimated Glomerular Filt Rate > 60; Glucose 129 mg/dL (65-105); Magnesium 2.1 mg/dL (1.6-2.3); Potassium 3.9 mmol/L (3.4-5.0); Sodium 136 mmol/L (137-145)
[2020-08-01 05:54] LABS: Prealbumin 16.8 mg/dL (17.6-36.0)
[2020-08-01] MEDS: SODIUM CHLORIDE 0.9% IV 250 ML 30 ML IV CONT (07:50)
[2020-08-01] MEDS: polyethylene glycoL 3350 17 GM POWD.PACK PO (08:03)
[2020-08-01] MEDS: amLODIPine BESYLATE 5 MG TABLET PO (08:03)
[2020-08-01] MEDS: PANTOPRAZOLE SODIUM IV 40 MG VIAL IV PUSH ×2 (08:03→20:19)
[2020-08-01] MEDS: lisinopriL 20 MG TABLET PO ×2 (08:03→16:41)
[2020-08-01 09:27] LABS: Glucose Point of Care 132 (65-105)
[2020-08-01 09:59] LABS: IFOB Positive Control Positive; Immunochemical Fecal Occult Bl Negative (N)
[2020-08-01] MEDS: IRON SUCROSE COMPLEX 100 MG in SODIUM CHLORIDE 0.9% IV 50 ML 220 MG IVPB (11:17)
[2020-08-01] MEDS: cloNIDine HCL 0.1 MG TABLET PO ×2 (11:18→16:41)
[2020-08-01 11:49] LABS: Glucose Point of Care 161 (65-105)
--- NOTE | 2020-08-01 11:51 | PM.PNGS ---
Progress Note: A&P Assessment and Plan (1) Gastric outlet obstruction: Code(s): K31.1 - Adult hypertrophic pyloric stenosis Status: Acute Assessment and Plan: Since this is not complete will not immediately proceed to surgery. Also will need to await the biopsies --- preliminary result shows some fungal elements on Gram stain. If this returns a malignancy will certainly need to consider surgical intervention. However, if it does not I would certainly recommend conservative management in this elderly female who is somewhat frail. She has multiple medical comorbidities including diabetes, hypertension, and history of atrial fibrillation. I have discussed the situation with Dr. Seay and he is planning to let her try clear liquids( She has tolerated these well). Continue the high-dose Protonix and consult ID regarding the possibility that a fungus is involved in inflammatory changes at the ulcer site. Certainly will have to monitor her oral intake and see if she can take enough calories in a liquid manner to allow the ulcer to heal and see whether not this stricture will resolve. Believe a good trial of conservative management is reasonable for this elderly lady with multiple comorbidities. Since she has tolerated clear liquids well now for 24 hours I would suggest that over the weekend we consider allowing her to have regular Ensure as a dietary supplement at least 3 cans a day to be spaced out between meals if possible. Otherwise, over the weekend it is okay from a surgical perspective for the patient to go home if she improves and aa appropriate antifungal agent is started. Dr. Ford is packer insulation for me for the weekend. Please call him if any surgical issues occur. I will not have him see her routinely over the weekend. (2) Pyloric ulcer: Code(s): K25.9 - Gastric ulcer, unspecified as acute or chronic, without hemorrhage or perforation Status: Acute Assessment and Plan: This been present for sometime please see previous EGD reports. Also see gastric outlet plan above. (3) Atrial fibrillation: Qualifiers: Atrial fibrillation type: unspecified Qualified Code(s): I48.91 - Unspecified atrial fibrillation Code(s): I48.91 - Unspecified atrial fibrillation Status: Acute Assessment and Plan: Because of her other comorbidities apparently she is not on any anticoagulation at this time period (4) Chronic anemia: Code(s): D64.9 - Anemia, unspecified Status: Acute Assessment and Plan: this is been present for least a year. It is perhaps secondary to either iron deficiency or the ulcer. (5) Hypothyroidism: Qualifiers: Hypothyroidism type: unspecified Qualified Code(s): E03.9 - Hypothyroidism, unspecified Code(s): E03.9 - Hypothyroidism, unspecified Status: Acute Assessment and Plan: Patient on replacement for this primary care service handling the problem. (6) Essential hypertension: Code(s): I10 - Essential (primary) hypertension Status: Acute Assessment and Plan: Patient on oral medication for this. While NPO primary service is substituting a patch plus IV medication p.r.n. if needed (7) Colon, diverticulosis: Code(s): K57.30 - Diverticulosis of large intestine without perforation or abscess without bleeding Status: Acute Assessment and Plan: patient has been on a high-fiber diet but this will have to be held until the stenosis at her distal stomach is resolved. (8) Constipation: Qualifiers: Constipation type: other constipation type Qualified Code(s): K59.09 - Other constipation Code(s): K59.00 - Constipation, unspecified Status: Acute Assessment and Plan: This most likely use secondary to the use of hydrocodone which she uses along with the Dilaudid that is in the pain pump for her significant back pain. She is on Liziness
--- NOTE | 2020-08-01 12:00 | PCNFU ---
Nutrition Follow-Up Complete: Inadequate oral intake R/T poor appetite as evidence by wt loss of 75lbs over the last year Goal: Diet advancement with PO intake of 50% or greater of meals and supplements Patient is progressing towards goal. We will continue current goal. Pt current nutrition is Clear liquids. Nutrition recommendation: Agree advancing as tolerated per MD orders. Last recorded weight is 60.6 kg up from 57.1 kg on admit. Bowel Motility:+BM reported 07/31/20. Labs Reviewed: Na 126,Glu 129, Hct 23.9,Hgb 6.9 Meds Noted:Synthroid, Protonix,Prinivil, NS at 30 ml/hr,Novolog Additional Notes: Spoke with patient today, tolerating clear liquid tray,had just received her lunch tray. She is drinking Ensure Surgery drinks which are providing 330 kcals and 18 gms protein. No diet questions or concerns at this time. Monitoring: PO intake, wt, diet, GI fx every 5 days
--- NOTE | 2020-08-01 13:13 | PM.IMPN ---
Progress Note: A&P Assessment and Plan (1) Gastric ulcer: Qualifiers: Gastric ulcer chronicity: acute Gastric ulcer complication status: without hemorrhage or perforation Qualified Code(s): K25.3 - Acute gastric ulcer without hemorrhage or perforation Code(s): K25.9 - Gastric ulcer, unspecified as acute or chronic, without hemorrhage or perforation Status: Acute Assessment and Plan: Patient with known history of gastric ulcer presents with abdominal pain; imaging with significant abdominal distension. EGD 07/[address] Seay showed again this large ulcer now with moderate stenosis at the pyloric/duodenal bulb causing a partial gastric outlet obstruction. [place] may be related to fungal infection with biopsy culture now growing Blanca. Recent EGD 06/10/20 showed the some improvement of the ulcer, but it is noted at that time that the biopsy was noted to have fungal yeast cells and Dr Seay prescribed antifungal therapy at that time. Continue PPI and appreciate input from Dr Seay. Given the partial gastric outlet obstruction; general surgery was consulted - appreciate recommendations. Plan is for conservative management at this time. (2) Fungal infection: Code(s): B49 - Unspecified mycosis Status: Acute Assessment and Plan: Gastric ulcer biopsy sent for fungal culture now growing Blanca glabrata. Blood fungal culture pending. Appreciate Dr Hopkins's recommendations - noted his plan for midline placement and Micafungin (day 1 of 14). Care coordination helping with discharge planning. (3) Chronic anemia: Code(s): D64.9 - Anemia, unspecified Status: Acute Assessment and Plan: Hgb low today down to 6.9, received 1 unit packed RBC red cells today. No evidence of acute bleeding. Iron panel is suggestive of iron deficiency anemia. Continue iron supplementation. Monitor CBC. (4) Essential hypertension: Code(s): I10 - Essential (primary) hypertension Status: Acute Assessment and Plan: On review of previous records, noted that blood pressures have historically been poorly controlled. Today we'll take off the clonidine patch and add back her oral clonidine. Continue her home lisinopril, norvasc. PRN hydralazine as needed. (5) Type 2 diabetes mellitus with diabetic polyneuropathy: Qualifiers: Diabetes mellitus nursing home insulin use: with rodent exterminator use Qualified Code(s): E11.42 - Type 2 diabetes mellitus with diabetic polyneuropathy; Z79.4 - terminal operations supervisor (current) use of insulin Code(s): E11.42 - Type 2 diabetes mellitus with diabetic polyneuropathy Status: Acute Assessment and Plan: Hgb A1c 6.1. Metformin held, will add back basal insulin. Continue to monitor with Accu-Cheks, cover with SSI. (6) Hyponatremia: Code(s): E87.1 - Hypo-osmolality and hyponatremia Status: Acute Assessment and Plan: Improving. [place] to be secondary to dehydration from poor oral intake the past few days. Stop IV fluids. (7) Gastroesophageal reflux disease: Qualifiers: Esophagitis presence: without esophagitis Qualified Code(s): K21.9 - Gastro-esophageal reflux disease without esophagitis Code(s): K21.9 - Gastro-esophageal reflux disease without esophagitis Status: Acute Assessment and Plan: See above, Protonix BID. (8) Chronic back pain: Qualifiers: Back pain location: back pain in unspecified location Back pain laterality: unspecified Qualified Code(s): M54.9 - Dorsalgia, unspecified; G89.29 - Other chronic pain Code(s): M54.9 - Dorsalgia, unspecified; G89.29 - Other
--- NOTE | 2020-08-01 13:19 | WPDINFPN2 ---
Progress Note: A&P Assessment and Plan (1) Gastric ulcer: Qualifiers: Gastric ulcer chronicity: acute Gastric ulcer complication status: without hemorrhage or perforation Qualified Code(s): K25.3 - Acute gastric ulcer without hemorrhage or perforation Code(s): K25.9 - Gastric ulcer, unspecified as acute or chronic, without hemorrhage or perforation Status: Acute Assessment and Plan: 1. 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 Current histopath = no fungal elements. 2. CXR = OGD, supportive of initial pulmonary infection leading to #1. No active pulmonary infection. REC Serologies still in process, and if reactive then will re-assess treatment. For now, treat the C glabrata with Micafungin # 1 / 14 days. There is no oral antifungal that is reliably active. Midline and ok discharge planning Subjective Date/time seen: 08/01/20 13:19 Interval history: no new complaints, feeling a little hungry Exam Narrative: Exam Narrative: afebrile Const: General: no acute distress Neck: Neck: supple Resp: Effort & Inspection: normal respiratory effort Auscultation: clear to auscultation bilaterally Cardio: Rate: regular rate Rhythm: regular rhythm Heart sounds: no gallops and no murmurs GI: Inspection: non-distended GI Palp: Yes Soft to palpation and No Tenderness to palpation present (GI) Auscultation: bowels sounds not normal and abnormal bowel sounds Objective Data Vital Signs Vital Signs: Vital Signs - 24 hr 07/31/20 14:00 07/31/20 17:48 07/31/20 20:00 Temperature 36.4 C L Pulse Rate 87 92 85 Respiratory Rate 20 12 Blood Pressure 171/64 H 182/60 H Pulse Oximetry 98 98 07/31/20 20:37 08/01/20 05:35 08/01/20 07:59 Temperature 36.7 C 36.6 C 36.3 C L Pulse Rate 85 69 72 Respiratory Rate 12 16 14 Blood Pressure 183/74 H 163/67 H 168/74 H Pulse Oximetry 98 97 98 08/01/20 08:14 08/01/20 09:14 08/01/20 11:00 Temperature 36.0 C L 36.9 C 36.6 C Pulse Rate 93 81 70 Respiratory Rate 16 14 18 Blood Pressure 175/67 H 174/61 H 185/68 H Pulse Oximetry 100 97 98 08/01/20 12:31 Temperature Pulse Rate 70 Respiratory Rate Blood Pressure 146/56 H Pulse Oximetry 98 Intake/Output Intake/Output: Intake & Output 07/29/20 07/30/20 07/31/20 08/01/20 23:59 23:59 23:59 23:59 Intake Total 1200 1400 4155 1172 Output Total 1075 2280 2900 1700 Balance 125 -880 1255 -528 Meds/Results Medications: Active Medications Generic Name Dose Route Start Last Admin Trade Name Freq PRN Reason Stop Dose Admin Acetaminophen 650 mg 07/31/20 00:42 07/31/20 20:44 Tylenol Tablet PO 650 mg Q4H PRN Administration Mild Pain (1-3) or Fever Amlodipine Besylate 5 mg 07/30/20 23:55 08/01/20 08:03 Norvasc PO 5 mg QAM [facility] Administration Clonidine HCl 0.1 mg 08/01/20 10:35 08/01/20 11:18 Catapres PO 0.1 mg BID [facility] Administration Dextrose 12.5 gm 07/28/20 23:03 Dextrose 50% Syringe IV PUSH PRN PRN Hypoglycemia Protocol Glucagon 1 mg 07/28/20 23:03 Glucagon For Inj IM PRN PRN Hypoglycemia Protocol Glucose 15 gm 07/28/20 23:03 Glutose 15 PO PRN PRN Hypoglycemia Protocol Hydralazine HCl 10 mg 07/28/20 23:03 07/31/20 17:48 Apresoline Hcl Inj IV PUSH 10 mg Q6H PRN Administration SBP > 165 or DBP > 105 Sodium Chloride 1,000 mls @ 60 mls/hr 07/28/20 16:00 08/01/20 11:15 Normal Saline Iv IV CONT 60 mls/hr .[id number] [facility] Infusion Dextrose 1,000 mls @ 100 mls/hr 07/28/20 23:03 Dextrose 5% 1,000 Ml IVPB PRN PRN Hypoglycemia Protocol Iron Sucrose 100 mg/ Sodium 55 mls @ 220 mls/hr 07/31/20 09:00 08/01/20 11:32 Chloride IVPB Infused QAM [facility] Infusion Sod
--- NOTE | 2020-08-01 15:01 | WPDGIPROGNO ---
Progress Note: A&P Assessment and Plan (1) Gastric outlet obstruction: Code(s): K31.1 - Adult hypertrophic pyloric stenosis Status: Acute Assessment and Plan: partial GOO, tolerating liquid diet and added ensure she is feeling better today (2) Fungal infection: Code(s): B49 - Unspecified mycosis Status: Acute Assessment and Plan: bx showed gillian glabatra. ID recommending IV antifunal for 2 weeks at least (3) Stricture, duodenum: Code(s): K31.5 - Obstruction of duodenum Status: Acute Assessment and Plan: due to persistent ulcer with fungal invasion hopefully she can keep tolerating liquid diet with dietary supplement may need to repeat another egd in 6-8 weeks to reassess (4) Chronic anemia: Code(s): D64.9 - Anemia, unspecified Status: Acute (5) Constipation: Qualifiers: Constipation type: other constipation type Qualified Code(s): K59.09 - Other constipation Code(s): K59.00 - Constipation, unspecified Status: Acute Assessment and Plan: using opiods on miralax and low dose of linzess, she is having BM's again and feeling better (6) Opioid dependence: Qualifiers: Substance use status: uncomplicated Qualified Code(s): F11.20 - Opioid dependence, uncomplicated Code(s): F11.20 - Opioid dependence, uncomplicated Status: Acute Subjective Date/time seen: 08/01/20 15:01 Interval history: she is feeling better today, had two BM's and less bloated. She has been tolerating CL diet. Review of Systems Review of Systems: All systems reviewed & are unremarkable except as noted in HPI and below Exam Const: General: cooperative, comfortable (But still c/o some abd. pain), no acute distress, alert and awake Orientation/consciousness: patient oriented x3 HENMT: Mouth: Yes moist mucous membranes Neck: Neck: normal visual inspection Chest: Chest palpation & inspection: normal inspection of the chest Resp: Effort & Inspection: normal respiratory effort Auscultation: clear to auscultation bilaterally Cardio: Jugular venous distension: no JVD Rate: regular rate Rhythm: regular rhythm GI: Inspection: scar (A infra-umbilical mid-line scar that is well-healed and no hernia) GI Palp: No Tenderness to palpation present (GI) and No Guarding due to palpation present (GI) Auscultation: normal bowel sounds Rectal Exam: deferred Other: pain pump in the LLQ of the abdomen. Skin: General skin exam: no rashes or lesions noted Neuro: General: patient oriented x3 and moves all extremities Cranial nerves: Yes Normal hearing present Speech: normal speech Psych: Mental Status: mental status grossly normal Speech and movement: Normal speech and movement present Affect: normal affect Objective Data Vital Signs Vital Signs: Vital Signs - 24 hr 07/31/20 17:48 07/31/20 20:00 07/31/20 20:37 Temperature 98.0 F Pulse Rate 92 85 85 Respiratory Rate 12 12 Blood Pressure 182/60 H 183/74 H Pulse Oximetry 98 98 08/01/20 05:35 08/01/20 07:59 08/01/20 08:14 Temperature 97.8 F 97.4 F L 96.8 F L Pulse Rate 69 72 93 Respiratory Rate 16 14 16 Blood Pressure 163/67 H 168/74 H 175/67 H Pulse Oximetry 97 98 100 08/01/20 09:14 08/01/20 11:00 08/01/20 12:31 Temperature 98.4 F 97.9 F Pulse Rate 81 70 70 Respiratory Rate 14 18 Blood Pressure 174/61 H 185/68 H 146/56 H Pulse Oximetry 97 98 98 08/01/20 14:00 Temperature 97.5 F L Pulse Rate 67 Respiratory Rate 18 Blood Pressure 144/64 H Pulse Oximetry 98 Intake/Output Intake/Output: Intake & Output 07/29/20 07/30/20 07/31/20 08/01/20 23:59 23:59 23:59 23:59 Intake Total 1200 1400 4155 1712 Output Total 1075 2280 2900 1700 Balance 125 -880 1255 12 Meds/Results Medications: Active Medications Generic Name Dose Route Start Last Admin Trade Name Freq PRN Reason Stop Dose Admin Acetaminophen 650 mg 07/31/20 00:42 07/31/20 2
[2020-08-01] MEDS: MICAFUNGIN SODIUM 100 MG in SODIUM CHLORIDE 0.9% IV 100 ML IVPB (15:39)
[2020-08-01 16:05] LABS: Hematocrit 26.3 % (37.0-47.0)
[2020-08-01 17:24] LABS: Glucose Point of Care 112 (65-105)
[2020-08-01] MEDS: SALINE LOCK FLUSH 10 ML IV PUSH (20:19)
[2020-08-01] MEDS: hydrALAZINE HCL 20 MG/ML VIAL 10 MG IV PUSH (21:02)
[2020-08-01] MEDS: ACETAMINOPHEN 325 MG TABLET 650 MG PO (21:04)
[2020-08-01 21:11] LABS: Glucose Point of Care 118 (65-105)
[2020-08-02 06:00] VITALS: BP 155/73; PULSE 64; RESP 16; TEMP 36.6; O2SAT 98
[2020-08-02] MEDS: LEVOTHYROXINE SODIUM 75 MCG TABLET PO (06:07)
[2020-08-02] MEDS: SALINE LOCK FLUSH 10 ML IV PUSH ×3 (06:07→20:11)
[2020-08-02 06:42] LABS: Basophils Absolute Auto 0.1 K/mm3 (0.0-0.1); Eosinophils Absolute Auto 0.3 K/mm3 (0-0.3); Eosinophils Percent Auto 5.2 % (0-4.4); Hematocrit 28.4 % (37.0-47.0); Hemoglobin 8.5 g/dL (12.0-15.0); Immature Granulocyte Absolute 0.03 K/mm3 (0.00-0.031); Immature Granulocyte Percent A 0.5 % (0-0.5); Lymphocytes Absolute Auto 1.75 K/mm3 (0.9-3.2); Lymphocytes Percent Auto 28.4 % (18.3-44.2); Mean Corpuscular HGB Conc 29.9 g/dl (32-36); Mean Corpuscular Hemoglobin 26.5 pg (26-34); Mean Corpuscular Volume 88.5 fl (80-100); Mean Platelet Volume 9.2 fl (7.4-10.4); Monocytes Absolute Auto 0.7 K/mm3 (0.1-0.6); Monocytes Percent Auto 10.9 % (2.6-8.5); Neutrophils Absolute Auto 3.3 K/mm3 (1.3-6.7); Platelet Count Result 353 k/mm3 (150-375); Red Blood Count 3.21 M/mm3 (4.2-5.4); Red Cell Distribution Width 16.4 % (11.5-14.5); White Blood Count 6.2 K/mm3 (4.5-10.0)
[2020-08-02 07:17] LABS: Anion Gap 4 mmol/L (8-16); Blood Urea Nitrogen 6 mg/dL (7-17); Calcium 8.7 mg/dL (8.4-10.2); Carbon Dioxide 31 mmol/L (22-30); Chloride 101 mmol/L (98-107); Estimated CRCL calculation 51 ml/min; Estimated Glomerular Filt Rate > 60; Glucose 134 mg/dL (65-105); Magnesium 1.7 mg/dL (1.6-2.3); Phosphorus 3.3 mg/dL (2.5-4.5); Potassium 3.7 mmol/L (3.4-5.0); Sodium 136 mmol/L (137-145)
--- NOTE | 2020-08-02 07:36 | WPDGIPROGNO ---
Progress Note: A&P Assessment and Plan (1) Gastric outlet obstruction: Code(s): K31.1 - Adult hypertrophic pyloric stenosis Status: Acute Assessment and Plan: Patient known to have pyloric channel ulcer with gastric outlet obstruction. Clinically doing well on a liquid diet agree with plans to slowly advance diet. Continue proton pump inhibitors for treatment of ulcer. Avoid nonsteroidal anti-inflammatory agents. Fungal invasion was identified at the ulcer and now on antifungal medications as well. (2) Pyloric ulcer: Code(s): K25.9 - Gastric ulcer, unspecified as acute or chronic, without hemorrhage or perforation Status: Acute (3) Fungal infection: Code(s): B49 - Unspecified mycosis Status: Acute Subjective Date/time seen: 08/02/20 07:36 Patient comfortable at rest. Tolerating liquid diet with no difficulties. Will try to advance diet today. She denies abdominal pain currently passing bowel movements regularly. Review of Systems Review of Systems: All systems reviewed & are unremarkable except as noted in HPI and below Exam Narrative: Exam Narrative: Patient is alert and comfortable at rest. Vital signs stable. Abdomen bowel sounds present soft nontender no evidence of distention or tenderness no masses noted. Objective Data Vital Signs Vital Signs: Vital Signs - 24 hr 08/01/20 07:59 08/01/20 08:14 08/01/20 09:14 Temperature 97.4 F L 96.8 F L 98.4 F Pulse Rate 72 93 81 Respiratory Rate 14 16 14 Blood Pressure 168/74 H 175/67 H 174/61 H Pulse Oximetry 98 100 97 08/01/20 11:00 08/01/20 12:31 08/01/20 14:00 Temperature 97.9 F 97.5 F L Pulse Rate 70 70 67 Respiratory Rate 18 18 Blood Pressure 185/68 H 146/56 H 144/64 H Pulse Oximetry 98 98 98 08/01/20 22:00 08/02/20 06:00 Temperature 97.3 F L 97.8 F Pulse Rate 60 64 Respiratory Rate 18 16 Blood Pressure 172/74 H 155/73 H Pulse Oximetry 99 98 Intake/Output Intake/Output: Intake & Output 07/30/20 07/31/20 08/01/20 08/02/20 23:59 23:59 23:59 23:59 Intake Total 1400 4155 3632 100 Output Total 2280 2900 2600 1200 Balance -880 1255 1032 -1100 Meds/Results Medications: Active Medications Generic Name Dose Route Start Last Admin Trade Name Freq PRN Reason Stop Dose Admin Acetaminophen 650 mg 07/31/20 00:42 08/01/20 21:04 Tylenol Tablet PO 650 mg Q4H PRN Administration Mild Pain (1-3) or Fever Amlodipine Besylate 5 mg 07/30/20 23:55 08/01/20 08:03 Norvasc PO 5 mg QAM [facility] Administration Clonidine HCl 0.1 mg 08/01/20 10:35 08/01/20 16:41 Catapres PO 0.1 mg BID [facility] Administration Dextrose 12.5 gm 07/28/20 23:03 Dextrose 50% Syringe IV PUSH PRN PRN Hypoglycemia Protocol Ferrous Sulfate 324 mg 08/02/20 08:00 Ferrous Sulfate PO DAILY@0800 [facility] Glucagon 1 mg 07/28/20 23:03 Glucagon For Inj IM PRN PRN Hypoglycemia Protocol Glucose 15 gm 07/28/20 23:03 Glutose 15 PO PRN PRN Hypoglycemia Protocol Hydralazine HCl 10 mg 07/28/20 23:03 08/01/20 21:02 Apresoline Hcl Inj IV PUSH 10 mg Q6H PRN Administration SBP > 165 or DBP > 105 Dextrose 1,000 mls @ 100 mls/hr 07/28/20 23:03 Dextrose 5% 1,000 Ml IVPB PRN PRN Hypoglycemia Protocol Micafungin Sodium 100 mg/ 100 mls @ 100 mls/hr 08/01/20 13:20 08/01/20 16:44 Sodium Chloride IVPB 08/14/20 23:59 Infused DAILY [facility] Infusion Insulin Aspart 2 - 5 units 07/29/20 08:00 08/01/20 17:44 Novolog SUB[facility]Q [facility] [place] Insulin Glargine 10 units 08/02/20 09:00 Lantus SUB-Q QAM [facility] Levothyroxine Sodium 75 mcg 08/02/20 06:30 08/02/20 06:07 Synthroid PO 75 mcg DAILY@0630 [facility] Administration Lisinopril 20 mg 07/31/20 18:10 08/01/20 16:41 Prinivil PO 20 mg BID [facility] Administration Nonformulary Drug 0 mcg 07/28/20 23:15 Dilaudid 488.5 Mcg (
[2020-08-02 07:38] LABS: Hypochromasia 1+ (NORMAL); Microcytosis 1+ (NORMAL); Ovalocytes 1+ (NORMAL); Platelet Estimate Adequate (Adequate)
[2020-08-02 08:30] LABS: Glucose Point of Care 132 (65-105)
[2020-08-02] MEDS: MAGNESIUM OXIDE 200 MG TABLET PO ×2 (08:47→20:10)
[2020-08-02] MEDS: lisinopriL 20 MG TABLET PO ×2 (08:47→16:37)
[2020-08-02] MEDS: cloNIDine HCL 0.1 MG TABLET PO ×2 (08:48→16:40)
[2020-08-02] MEDS: polyethylene glycoL 3350 17 GM POWD.PACK PO (08:48)
[2020-08-02] MEDS: amLODIPine BESYLATE 5 MG TABLET PO (08:48)
[2020-08-02] MEDS: FERROUS SULFATE 324 MG TABLET PO (08:48)
[2020-08-02] MEDS: INSULIN GLARGINE (*BKC) 100 UNITS/ML 10 UNITS SUB-Q (08:50)
[2020-08-02] MEDS: PANTOPRAZOLE SODIUM IV 40 MG VIAL IV PUSH ×2 (08:50→20:11)
[2020-08-02] MEDS: MICAFUNGIN SODIUM 100 MG in SODIUM CHLORIDE 0.9% IV 100 ML IVPB (08:50)
--- NOTE | 2020-08-02 10:53 | P.PNIM_ITS ---
Progress Note: A&P Assessment and Plan (1) Gastric ulcer: Qualifiers: Gastric ulcer chronicity: acute Gastric ulcer complication status: without hemorrhage or perforation Qualified Code(s): K25.3 - Acute gastric ulcer without hemorrhage or perforation Code(s): K25.9 - Gastric ulcer, unspecified as acute or chronic, without hemorrhage or perforation Status: Acute Assessment and Plan: * Patient with known history of gastric ulcer presents with abdominal pain; imaging with significant abdominal distension. * EGD 07/[address] Seay showed again this large ulcer now with moderate stenosis at the pyloric/duodenal bulb causing a partial gastric outlet obstruction. [place] may be related to fungal infection with biopsy culture now growing Blanca. * Recent EGD 06/10/20 showed the some improvement of the ulcer, but it is noted at that time that the biopsy was noted to have fungal yeast cells and Dr Seay prescribed antifungal therapy at that time. * Continue PPI and appreciate input from Dr Seay. * Given the partial gastric outlet obstruction; general surgery was consulted - appreciate recommendations. Plan is for conservative management at this time. (2) Fungal infection: Code(s): B49 - Unspecified mycosis Status: Acute Assessment and Plan: * Gastric ulcer biopsy sent for fungal culture now growing Blanca glabrata. Blood fungal culture pending. * Appreciate Dr Hopkins's recommendations - noted his plan for midline placement and Micafungin (day 2 of 14). Care coordination helping with discharge planning/ mostly waiting on authorization for the medication. (3) Chronic anemia: Code(s): D64.9 - Anemia, unspecified Status: Acute Assessment and Plan: * Hgb low but stable at 8.5. Received 1 unit packed RBC red cells 08/01. No evidence of acute bleeding. Iron panel is suggestive of iron deficiency anemia. Continue iron supplementation. * Monitor CBC. (4) Essential hypertension: Code(s): I10 - Essential (primary) hypertension Status: Acute Assessment and Plan: * On review of previous records, noted that blood pressures have historically been poorly controlled. * Continue home clonidine, lisinopril, norvasc. PRN hydralazine as needed. * Still elevated, will try increasing norvasc. (5) Type 2 diabetes mellitus with diabetic polyneuropathy: Qualifiers: Diabetes mellitus long chain beamer insulin use: with long chain beamer use Qualified Code(s): E11.42 - Type 2 diabetes mellitus with diabetic polyneuropathy; Z79.4 - rn long term care (current) use of insulin Code(s): E11.42 - Type 2 diabetes mellitus with diabetic polyneuropathy Status: Acute Assessment and Plan: * Hgb A1c 6.1. Metformin held. Continue basal insulin. Continue to monitor with Accu-Cheks, cover with SSI. (6) Hyponatremia: Code(s): E87.1 - Hypo-osmolality and hyponatremia Status: Acute Assessment and Plan: * Improving. [place] to be secondary to dehydration from poor oral intake the past few days. Monitor BMP. (7) Gastroesophageal reflux disease: Qualifiers: Esophagitis presence: without esophagitis Qualified Code(s): K21.9 - Gastro-esophageal reflux disease without esophagitis Code(s): K21.9 - Gastro-esophageal reflux disease without esophagitis St
--- NOTE | 2020-08-02 10:53 | PM.IMPN ---
Progress Note: A&P Assessment and Plan (1) Gastric ulcer: Qualifiers: Gastric ulcer chronicity: acute Gastric ulcer complication status: without hemorrhage or perforation Qualified Code(s): K25.3 - Acute gastric ulcer without hemorrhage or perforation Code(s): K25.9 - Gastric ulcer, unspecified as acute or chronic, without hemorrhage or perforation Status: Acute Assessment and Plan: Patient with known history of gastric ulcer presents with abdominal pain; imaging with significant abdominal distension. EGD 07/[address] Seay showed again this large ulcer now with moderate stenosis at the pyloric/duodenal bulb causing a partial gastric outlet obstruction. [place] may be related to fungal infection with biopsy culture now growing Blanca. Recent EGD 06/10/20 showed the some improvement of the ulcer, but it is noted at that time that the biopsy was noted to have fungal yeast cells and Dr Seay prescribed antifungal therapy at that time. Continue PPI and appreciate input from Dr Seay. Given the partial gastric outlet obstruction; general surgery was consulted - appreciate recommendations. Plan is for conservative management at this time. (2) Fungal infection: Code(s): B49 - Unspecified mycosis Status: Acute Assessment and Plan: Gastric ulcer biopsy sent for fungal culture now growing Blanca glabrata. Blood fungal culture pending. Appreciate Dr Hopkins's recommendations - noted his plan for midline placement and Micafungin (day 2 of 14). Care coordination helping with discharge planning/ mostly waiting on authorization for the medication. (3) Chronic anemia: Code(s): D64.9 - Anemia, unspecified Status: Acute Assessment and Plan: Hgb low but stable at 8.5. Received 1 unit packed RBC red cells 08/01. No evidence of acute bleeding. Iron panel is suggestive of iron deficiency anemia. Continue iron supplementation. Monitor CBC. (4) Essential hypertension: Code(s): I10 - Essential (primary) hypertension Status: Acute Assessment and Plan: On review of previous records, noted that blood pressures have historically been poorly controlled. Continue home clonidine, lisinopril, norvasc. PRN hydralazine as needed. Still elevated, will try increasing norvasc. (5) Type 2 diabetes mellitus with diabetic polyneuropathy: Qualifiers: Diabetes mellitus technical document writer insulin use: with group home use Qualified Code(s): E11.42 - Type 2 diabetes mellitus with diabetic polyneuropathy; Z79.4 - arc cutter plasma arc (current) use of insulin Code(s): E11.42 - Type 2 diabetes mellitus with diabetic polyneuropathy Status: Acute Assessment and Plan: Hgb A1c 6.1. Metformin held. Continue basal insulin. Continue to monitor with Accu-Cheks, cover with SSI. (6) Hyponatremia: Code(s): E87.1 - Hypo-osmolality and hyponatremia Status: Acute Assessment and Plan: Improving. [place] to be secondary to dehydration from poor oral intake the past few days. Monitor BMP. (7) Gastroesophageal reflux disease: Qualifiers: Esophagitis presence: without esophagitis Qualified Code(s): K21.9 - Gastro-esophageal reflux disease without esophagitis Code(s): K21.9 - Gastro-esophageal reflux disease without esophagitis Status: Acute Assessment and Plan: See above, Protonix BID. (8) Chronic back pain: Qualifiers: Back pain location: back pain in unspecified location Back pain laterality: unspecified Qualified Code(s): M54.9 - Dorsalgia, unspecified; G89.29 - Other chronic pain Code(s): M54.9 - Dorsalgia, unsp
[2020-08-02 12:16] LABS: Glucose Point of Care 160 (65-105)
[2020-08-02 14:00] VITALS: BP 159/74; PULSE 75; RESP 18; TEMP 36.7; O2SAT 100
[2020-08-02 17:19] LABS: Glucose Point of Care 99 (65-105)
[2020-08-02 21:10] LABS: Glucose Point of Care 115 (65-105)
[2020-08-02 22:00] VITALS: BP 150/71; PULSE 60; RESP 16; TEMP 36.4; O2SAT 98
[2020-08-03] MEDS: LEVOTHYROXINE SODIUM 75 MCG TABLET PO (05:33)
[2020-08-03] MEDS: SALINE LOCK FLUSH 10 ML IV PUSH ×3 (05:33→20:19)
[2020-08-03 06:00] VITALS: BP 152/72; PULSE 60; RESP 16; TEMP 36.7; O2SAT 98
[2020-08-03 06:06] LABS: Basophils Absolute Auto 0.1 K/mm3 (0.0-0.1); Basophils Percent Auto 1.2 % (0.2-1.2); Eosinophils Absolute Auto 0.3 K/mm3 (0-0.3); Eosinophils Percent Auto 4.3 % (0-4.4); Hematocrit 27.6 % (37.0-47.0); Hemoglobin 8.3 g/dL (12.0-15.0); Immature Granulocyte Absolute 0.01 K/mm3 (0.00-0.031); Immature Granulocyte Percent A 0.2 % (0-0.5); Lymphocytes Absolute Auto 2.16 K/mm3 (0.9-3.2); Lymphocytes Percent Auto 35.8 % (18.3-44.2); Mean Corpuscular HGB Conc 30.1 g/dl (32-36); Mean Corpuscular Hemoglobin 27.2 pg (26-34); Mean Corpuscular Volume 90.5 fl (80-100); Mean Platelet Volume 9.5 fl (7.4-10.4); Monocytes Absolute Auto 0.7 K/mm3 (0.1-0.6); Monocytes Percent Auto 11.8 % (2.6-8.5); Neutrophils Absolute Auto 2.8 K/mm3 (1.3-6.7); Neutrophils Percent Auto 46.7 % (45.5-73.1); Platelet Count Result 344 k/mm3 (150-375); Red Blood Count 3.05 M/mm3 (4.2-5.4); Red Cell Distribution Width 16.6 % (11.5-14.5)
[2020-08-03 06:27] LABS: Anion Gap 5 mmol/L (8-16); Blood Urea Nitrogen 6 mg/dL (7-17); Calcium 9.3 mg/dL (8.4-10.2); Carbon Dioxide 31 mmol/L (22-30); Chloride 99 mmol/L (98-107); Estimated CRCL calculation 45 ml/min; Estimated Glomerular Filt Rate > 60; Glucose 117 mg/dL (65-105); Magnesium 1.8 mg/dL (1.6-2.3); Sodium 135 mmol/L (137-145)
--- NOTE | 2020-08-03 06:58 | WPDGIPROGNO ---
Progress Note: A&P Assessment and Plan (1) Gastric outlet obstruction: Code(s): K31.1 - Adult hypertrophic pyloric stenosis Status: Acute Assessment and Plan: Patient with pyloric channel ulcer and subsequent partial gastric outlet obstruction. Diet is gradually being advanced. Patient tolerating diet well at this time period fungal infection was identified in is now being treated with antibiotics. Continued supportive care and continue to advance diet Dr. thomason is returns tomorrow. Will resume care. (2) Pyloric ulcer: Code(s): K25.9 - Gastric ulcer, unspecified as acute or chronic, without hemorrhage or perforation Status: Acute (3) Fungal infection: Code(s): B49 - Unspecified mycosis Status: Acute Subjective Date/time seen: 08/03/20 06:58 Patient tolerating diet today 8. Slowly advancing diet with no difficulties at present. Review of Systems Review of Systems: All systems reviewed & are unremarkable except as noted in HPI and below Exam Narrative: Exam Narrative: Physical exam patient is alert comfortable at rest she is anicteric. Abdomen bowel sounds are present soft nontender abdomen is not distended. No localized tenderness identified. Objective Data Vital Signs Vital Signs: Vital Signs - 24 hr 08/02/20 14:00 08/02/20 22:00 08/03/20 06:00 Temperature 98.0 F 97.6 F 98.1 F Pulse Rate 75 60 60 Respiratory Rate 18 16 16 Blood Pressure 159/74 H 150/71 H 152/72 H Pulse Oximetry 100 98 98 Intake/Output Intake/Output: Intake & Output 07/31/20 08/01/20 08/02/20 08/03/20 23:59 23:59 23:59 23:59 Intake Total 4155 3632 2480 Output Total 2900 2600 2600 900 Balance 1255 1032 -120 -900 Meds/Results Medications: Active Medications Generic Name Dose Route Start Last Admin Trade Name Freq PRN Reason Stop Dose Admin Acetaminophen 650 mg 07/31/20 00:42 08/01/20 21:04 Tylenol Tablet PO 650 mg Q4H PRN Administration Mild Pain (1-3) or Fever Amlodipine Besylate 10 mg 08/03/20 09:00 Norvasc PO QAM CHAS Clonidine HCl 0.1 mg 08/01/20 10:35 08/02/20 16:40 Catapres PO 0.1 mg BID CHAS Administration Dextrose 12.5 gm 07/28/20 23:03 Dextrose 50% Syringe IV PUSH PRN PRN Hypoglycemia Protocol Ferrous Sulfate 324 mg 08/02/20 08:00 08/02/20 08:48 Ferrous Sulfate PO 324 mg DAILY@0800 CHAS Administration Glucagon 1 mg 07/28/20 23:03 Glucagon For Inj IM PRN PRN Hypoglycemia Protocol Glucose 15 gm 07/28/20 23:03 Glutose 15 PO PRN PRN Hypoglycemia Protocol Hydralazine HCl 10 mg 07/28/20 23:03 08/01/20 21:02 Apresoline Hcl Inj IV PUSH 10 mg Q6H PRN Administration SBP > 165 or DBP > 105 Dextrose 1,000 mls @ 100 mls/hr 07/28/20 23:03 Dextrose 5% 1,000 Ml IVPB PRN PRN Hypoglycemia Protocol Micafungin Sodium 100 mg/ 100 mls @ 100 mls/hr 08/01/20 13:20 08/02/20 09:50 Sodium Chloride IVPB 08/14/20 23:59 Infused DAILY [facility] Infusion Insulin Aspart 2 - 5 units 07/29/20 08:00 08/02/20 17:30 Novolog SUB-Q Not Given TIDWM [facility] Protocol Insulin Glargine 10 units 08/02/20 09:00 08/02/20 08:50 Lantus SUB-Q 10 units QAM CHAS Administration Levothyroxine Sodium 75 mcg 08/02/20 06:30 08/03/20 05:33 Synthroid PO 75 mcg DAILY@0630 CHAS Administration Lisinopril 20 mg 07/31/20 18:10 08/02/20 16:37 Prinivil PO 20 mg BID CHAS Administration Magnesium Oxide 200 mg 08/02/20 09:00 08/02/20 20:10 Mag-Ox PO 200 mg Q12HR CHAS Administration Nonformulary Drug 0 mcg 07/28/20 23:15 Dilaudid 488.5 Mcg ( XX 08/27/20 23:16 20.4 Mcg/Hr) DIRECTED [facility] Non-Formulary Medication 72 mcg 08/01/20 09:00 Linzes BY MOUTH 08/31/20 09:01 DAILY [facility] Ondansetron HCl 4 mg 07/28/20 15:57 07/30/20 20:34 Zofran Inj IV PUSH 4 mg Q4H PRN Administration Nausea Pantopra
[2020-08-03 08:27] LABS: Glucose Point of Care 185 (65-105)
[2020-08-03] MEDS: MICAFUNGIN SODIUM 100 MG in SODIUM CHLORIDE 0.9% IV 100 ML IVPB (09:01)
[2020-08-03] MEDS: lisinopriL 20 MG TABLET PO ×2 (09:01→16:37)
[2020-08-03] MEDS: cloNIDine HCL 0.1 MG TABLET PO ×2 (09:01→16:37)
[2020-08-03] MEDS: amLODIPine BESYLATE 5 MG TABLET 10 MG PO (09:01)
[2020-08-03] MEDS: MAGNESIUM OXIDE 200 MG TABLET PO ×2 (09:01→20:19)
[2020-08-03] MEDS: polyethylene glycoL 3350 17 GM POWD.PACK PO (09:02)
[2020-08-03] MEDS: FERROUS SULFATE 324 MG TABLET PO (09:02)
[2020-08-03] MEDS: PANTOPRAZOLE SODIUM IV 40 MG VIAL IV PUSH ×2 (09:02→20:19)
[2020-08-03] MEDS: INSULIN GLARGINE (*BKC) 100 UNITS/ML 10 UNITS SUB-Q (09:03)
--- NOTE | 2020-08-03 11:13 | PM.IMPN ---
Progress Note: A&P Assessment and Plan (1) Gastric ulcer: Qualifiers: Gastric ulcer chronicity: acute Gastric ulcer complication status: without hemorrhage or perforation Qualified Code(s): K25.3 - Acute gastric ulcer without hemorrhage or perforation Code(s): K25.9 - Gastric ulcer, unspecified as acute or chronic, without hemorrhage or perforation Status: Acute Assessment and Plan: Patient with known history of gastric ulcer presents with abdominal pain; imaging with significant abdominal distension. EGD 07/[address] Seay showed again this large ulcer now with moderate stenosis at the pyloric/duodenal bulb causing a partial gastric outlet obstruction. [place] may be related to fungal infection with biopsy culture now growing Blanca. Continue PPI and appreciate input from Dr Seay. Given the partial gastric outlet obstruction; general surgery was consulted - appreciate recommendations. Plan is for conservative management at this time. (2) Fungal infection: Code(s): B49 - Unspecified mycosis Status: Acute Assessment and Plan: Gastric ulcer biopsy sent for fungal culture now growing Blanca glabrata. Blood fungal culture pending. Appreciate Dr Hopkins's recommendations - noted his plan for midline placement and Micafungin (day 3 of 14). Care coordination helping with discharge planning and we are just waiting on authorization for the medication. (3) Chronic anemia: Code(s): D64.9 - Anemia, unspecified Status: Acute Assessment and Plan: Hgb low but stable at 8.3. Received 1 unit packed RBC red cells 08/01. No evidence of acute bleeding. Iron panel is suggestive of iron deficiency anemia. Continue iron supplementation and monitor CBC. (4) Essential hypertension: Code(s): I10 - Essential (primary) hypertension Status: Acute Assessment and Plan: On review of previous records, noted that blood pressures have historically been poorly controlled. Continue home clonidine, lisinopril, norvasc (increased dose). PRN hydralazine as needed. 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 Metformin held. Continue basal insulin. Continue to monitor with Accu-Cheks, cover with SSI. (6) Gastroesophageal reflux disease: Qualifiers: Esophagitis presence: without esophagitis Qualified Code(s): K21.9 - Gastro-esophageal reflux disease without esophagitis Code(s): K21.9 - Gastro-esophageal reflux disease without esophagitis Status: Acute Assessment and Plan: See above, Protonix BID. (7) Chronic back pain: Qualifiers: Back pain location: back pain in unspecified location Back pain laterality: unspecified Qualified Code(s): M54.9 - Dorsalgia, unspecified; G89.29 - Other chronic pain Code(s): M54.9 - Dorsalgia, unspecified; G89.29 - Other chronic pain Status: Acute Assessment and Plan: Intrathecal pain pump with Dilaudid for treatment of chronic lower back pain and can continue Tylenol. (8) Hypothyroidism: Qualifiers: Hypothyroidism type: unspecified Qualified Code(s): E03.9 - Hypothyroidism, unspecified Code(s): E03.9 - Hypothyroidism, unspecified Status: Acute Assessment and Plan: Continue levothyroxine. __
[2020-08-03 12:23] LABS: Glucose Point of Care 110 (65-105)
[2020-08-03 14:00] VITALS: BP 160/66; PULSE 60; RESP 20; TEMP 36.8; O2SAT 99
[2020-08-03 17:02] LABS: Glucose Point of Care 76 (65-105)
[2020-08-03] MEDS: ACETAMINOPHEN 325 MG TABLET 650 MG PO (18:58)
[2020-08-03 20:48] LABS: Glucose Point of Care 91 (65-105)
[2020-08-03 21:27] VITALS: BP 149/58; PULSE 56; RESP 16; TEMP 36.3; O2SAT 97
[2020-08-04] MEDS: ACETAMINOPHEN 325 MG TABLET 650 MG PO ×4 (00:37→17:14)
[2020-08-04 06:00] VITALS: BP 152/63; PULSE 59; RESP 16; TEMP 36.2; O2SAT 98
[2020-08-04] MEDS: SALINE LOCK FLUSH 10 ML IV PUSH ×3 (06:15→20:34)
[2020-08-04] MEDS: LEVOTHYROXINE SODIUM 75 MCG TABLET PO (06:15)
[2020-08-04 07:44] LABS: Glucose Point of Care 102 (65-105)
[2020-08-04] MEDS: lisinopriL 20 MG TABLET PO ×2 (08:08→16:25)
[2020-08-04] MEDS: MAGNESIUM OXIDE 200 MG TABLET PO ×2 (08:08→20:34)
[2020-08-04] MEDS: cloNIDine HCL 0.1 MG TABLET PO ×2 (08:08→16:25)
[2020-08-04] MEDS: amLODIPine BESYLATE 5 MG TABLET 10 MG PO (08:08)
[2020-08-04] MEDS: polyethylene glycoL 3350 17 GM POWD.PACK PO (08:08)
[2020-08-04] MEDS: FERROUS SULFATE 324 MG TABLET PO (08:09)
[2020-08-04] MEDS: PANTOPRAZOLE SODIUM IV 40 MG VIAL IV PUSH (08:09)
[2020-08-04] MEDS: MICAFUNGIN SODIUM 100 MG in SODIUM CHLORIDE 0.9% IV 100 ML IVPB (08:09)
[2020-08-04] MEDS: INSULIN GLARGINE (*BKC) 100 UNITS/ML 10 UNITS SUB-Q (08:09)
--- NOTE | 2020-08-04 09:31 | PM.IMPN ---
Progress Note: A&P Assessment and Plan (1) Gastric ulcer: Qualifiers: Gastric ulcer chronicity: acute Gastric ulcer complication status: without hemorrhage or perforation Qualified Code(s): K25.3 - Acute gastric ulcer without hemorrhage or perforation Code(s): K25.9 - Gastric ulcer, unspecified as acute or chronic, without hemorrhage or perforation Status: Acute Assessment and Plan: Patient with known history of gastric ulcer presents with abdominal pain; initial imaging with significant abdominal distension. EGD 07/[address] Seay showed again this large ulcer now with moderate stenosis at the pyloric/duodenal bulb causing a partial gastric outlet obstruction. [place] to be related to fungal infection with biopsy culture now growing Blanca. Dr Seay following - appreciate recommendations. Plan for today is to continue PPI, advance to pureed diet. Given the partial gastric outlet obstruction; general surgery was consulted - appreciate recommendations. Plan is for conservative management at this time. (2) Fungal infection: Code(s): B49 - Unspecified mycosis Status: Acute Assessment and Plan: Gastric ulcer biopsy sent for fungal culture now growing Blanca glabrata. Blood fungal culture pending. Appreciate Dr Hopkins's recommendations - noted his plan for midline placement and Micafungin (day 4 of 14). Care coordination helping with discharge planning and we are just waiting on authorization for the medication at this point. (3) Chronic anemia: Code(s): D64.9 - Anemia, unspecified Status: Acute Assessment and Plan: Hgb low but stable at 8.3. Received 1 unit packed RBC red cells 08/01. No evidence of acute bleeding. Iron panel is suggestive of iron deficiency anemia. Continue iron supplementation and monitor CBC. (4) Essential hypertension: Code(s): I10 - Essential (primary) hypertension Status: Acute Assessment and Plan: On review of previous records, noted that blood pressures have historically been poorly controlled. Continue home clonidine, lisinopril, norvasc (increased dose). PRN hydralazine as needed. (5) Type 2 diabetes mellitus with diabetic polyneuropathy: Qualifiers: Diabetes mellitus senior care insulin use: with senior care use Qualified Code(s): E11.42 - Type 2 diabetes mellitus with diabetic polyneuropathy; Z79.4 - intermission coordinator (current) use of insulin Code(s): E11.42 - Type 2 diabetes mellitus with diabetic polyneuropathy Status: Acute Assessment and Plan: Hgb A1c 6.1. Resume metformin. Continue basal insulin. Continue to monitor with Accu-Cheks, cover with SSI. (6) Gastroesophageal reflux disease: Qualifiers: Esophagitis presence: without esophagitis Qualified Code(s): K21.9 - Gastro-esophageal reflux disease without esophagitis Code(s): K21.9 - Gastro-esophageal reflux disease without esophagitis Status: Acute Assessment and Plan: See above, Protonix BID. (7) Chronic back pain: Qualifiers: Back pain location: back pain in unspecified location Back pain laterality: unspecified Qualified Code(s): M54.9 - Dorsalgia, unspecified; G89.29 - Other chronic pain Code(s): M54.9 - Dorsalgia, unspecified; G89.29 - Other chronic pain Status: Acute Assessment and Plan: Intrathecal pain pump with Dilaudid for treatment of chronic lower back pain and can continue Tylenol. (8) Hypothyroidism: Qualifiers: Hypothyroidism type: unspecified Qualified Code(s): E03.9 - Hypothyroidism, unspecified Code(s): E03.9 - Hypothyroidism, unspecified
--- NOTE | 2020-08-04 09:33 | WPDGIPROGNO ---
Progress Note: A&P Assessment and Plan (1) Gastric outlet obstruction: Code(s): K31.1 - Adult hypertrophic pyloric stenosis Status: Acute Assessment and Plan: partial GOO secondary to pyloric ulcer tolerating diet, advance to pureed consistency egd in 6-8 weeks to reassess healing process (2) Fungal infection: Code(s): B49 - Unspecified mycosis Status: Acute Assessment and Plan: bx showed gillian glabatra. she has picc line and will require home health injection of antifungal (3) Stricture, duodenum: Code(s): K31.5 - Obstruction of duodenum Status: Acute Assessment and Plan: due to persistent ulcer with fungal invasion clinically doing better and tolerating diet continue with PPI bid (4) Chronic anemia: Code(s): D64.9 - Anemia, unspecified Status: Acute Assessment and Plan: hb stable after last transfusion (5) Constipation: Qualifiers: Constipation type: other constipation type Qualified Code(s): K59.09 - Other constipation Code(s): K59.00 - Constipation, unspecified Status: Acute Assessment and Plan: using opiods on miralax and low dose of linzess (6) Opioid dependence: Qualifiers: Substance use status: uncomplicated Qualified Code(s): F11.20 - Opioid dependence, uncomplicated Code(s): F11.20 - Opioid dependence, uncomplicated Status: Acute Subjective Date/time seen: 08/04/20 09:33 Interval history: no new events, tolerating full liquid diet, no nausea or abdominal discomfort. Review of Systems Review of Systems: All systems reviewed & are unremarkable except as noted in HPI and below Exam Const: General: cooperative, no acute distress, alert and awake Orientation/consciousness: patient oriented x3 HENMT: Mouth: Yes moist mucous membranes Neck: Neck: normal visual inspection and supple Chest: Chest palpation & inspection: normal inspection of the chest Resp: Effort & Inspection: normal respiratory effort Auscultation: clear to auscultation bilaterally Cardio: Jugular venous distension: no JVD Rate: regular rate Rhythm: regular rhythm GI: Inspection: scar (A infra-umbilical mid-line scar that is well-healed and no hernia) GI Palp: No Tenderness to palpation present (GI) and No Guarding due to palpation present (GI) Auscultation: normal bowel sounds Other: pain pump in the LLQ of the abdomen. Skin: General skin exam: no rashes or lesions noted Neuro: General: patient oriented x3 and moves all extremities Cranial nerves: Yes Normal hearing present Speech: normal speech Extrem: General: normal to inspection Psych: Mental Status: mental status grossly normal Speech and movement: Normal speech and movement present Affect: normal affect Objective Data Vital Signs Vital Signs: Vital Signs - 24 hr 08/03/20 14:00 08/03/20 21:27 08/04/20 06:00 Temperature 98.3 F 97.3 F L 97.1 F L Pulse Rate 60 56 L 59 L Respiratory Rate 20 16 16 Blood Pressure 160/66 H 149/58 H 152/63 H Pulse Oximetry 99 97 98 Intake/Output Intake/Output: Intake & Output 08/01/20 08/02/20 08/03/20 08/04/20 23:59 23:59 23:59 23:59 Intake Total 3632 2480 660 540 Output Total 2600 2600 2000 1950 Balance 1032 -153 -1340 -1410 Meds/Results Medications: Active Medications Generic Name Dose Route Start Last Admin Trade Name Freq PRN Reason Stop Dose Admin Acetaminophen 650 mg 07/31/20 00:42 08/04/20 04:24 Tylenol Tablet PO 650 mg Q4H PRN Administration Mild Pain (1-3) or Fever Amlodipine Besylate 10 mg 08/03/20 09:00 08/04/20 08:08 Norvasc PO 10 mg QAM CHAS Administration Clonidine HCl 0.1 mg 08/01/20 10:35 08/04/20 08:08 Catapres PO 0.1 mg BID CHAS Administration Dextrose 12.5 gm 07/28/20 23:03 Dextrose 50% Syringe IV PUSH PRN PRN Hypoglycemia Protocol Ferrous Sulfate 324 mg 08/02/20 08:00 08/04/20 08:09
[2020-08-04 11:15] LABS: Glucose Point of Care 164 (65-105)
[2020-08-04 12:55] LABS: Reference Lab Test Result Not Detected
[2020-08-04 14:00] VITALS: BP 140/53; PULSE 61; RESP 17; TEMP 36.7; O2SAT 100
--- NOTE | 2020-08-04 14:16 | WPDINFPN2 ---
Progress Note: A&P Assessment and Plan (1) Gastric ulcer: Qualifiers: Gastric ulcer chronicity: acute Gastric ulcer complication status: without hemorrhage or perforation Qualified Code(s): K25.3 - Acute gastric ulcer without hemorrhage or perforation Code(s): K25.9 - Gastric ulcer, unspecified as acute or chronic, without hemorrhage or perforation Status: Acute Assessment and Plan: 1. 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 Current histopath = no fungal elements. Cryptococcal Ag was NR. 2. CXR = OGD, supportive of initial pulmonary infection leading to #1. No active pulmonary infection. REC Someone in lab canceled the Urine Histo Ag, without my knowledge or approval -- reorder. Blastomyces Serology still in process, and if reactive then will re-assess treatment. Continue Micafungin # 4 / 14 days. There is no oral antifungal that is reliably active. Midline and ok discharge planning. I called on Tuesday afternoon her insurance plan, at request of Bioinformatics Team Member, for prior authorization. But no one in Pharmacy Auth. was available. I would be glad to re-try if requested. Subjective Date/time seen: 08/04/20 14:16 Interval history: some periumbilical burning earlier today, better. No N/V, midline in Exam Narrative: Exam Narrative: afebrile Const: General: no acute distress Eyes: General: appearance normal, both eyes and all related structures Resp: Effort & Inspection: normal respiratory effort Auscultation: clear to auscultation bilaterally Cardio: Rate: regular rate Rhythm: regular rhythm Heart sounds: no gallops and no murmurs GI: Inspection: non-distended GI Palp: Yes Soft to palpation, No Tenderness to palpation present (GI) and No Guarding due to palpation present (GI) Skin: General skin exam: normal color and no rashes or lesions noted Objective Data Vital Signs Vital Signs: Vital Signs - 24 hr 08/03/20 21:27 08/04/20 06:00 Temperature 36.3 C L 36.2 C L Pulse Rate 56 L 59 L Respiratory Rate 16 16 Blood Pressure 149/58 H 152/63 H Pulse Oximetry 97 98 Intake/Output Intake/Output: Intake & Output 08/01/20 08/02/20 08/03/20 08/04/20 23:59 23:59 23:59 23:59 Intake Total 3632 2480 660 780 Output Total 2605 5570 1999 1949 Balance 6978 -680 -7367 -9601 Meds/Results Medications: Active Medications Generic Name Dose Route Start Last Admin Trade Name Freq PRN Reason Stop Dose Admin Acetaminophen 650 mg 07/31/20 00:42 08/04/20 12:03 Tylenol Tablet PO 650 mg Q4H PRN Administration Mild Pain (1-3) or Fever Amlodipine Besylate 10 mg 08/03/20 09:00 08/04/20 08:08 Norvasc PO 10 mg QAM CHAS Administration Clonidine HCl 0.1 mg 08/01/20 10:35 08/04/20 08:08 Catapres PO 0.1 mg BID CHAS Administration Dextrose 12.5 gm 07/28/20 23:03 Dextrose 50% Syringe IV PUSH PRN PRN Hypoglycemia Protocol Ferrous Sulfate 324 mg 08/02/20 08:00 08/04/20 08:09 Ferrous Sulfate PO 324 mg DAILY@0800 CHAS Administration Glucagon 1 mg 07/28/20 23:03 Glucagon For Inj IM PRN PRN Hypoglycemia Protocol Glucose 15 gm 07/28/20 23:03 Glutose 15 PO PRN PRN Hypoglycemia Protocol Hydralazine HCl 10 mg 07/28/20 23:03 08/01/20 21:02 Apresoline Hcl Inj IV PUSH 10 mg Q6H PRN Administration SBP > 165 or DBP > 105 Dextrose 1,000 mls @ 100 mls/hr 07/28/20 23:03 Dextrose 5% 1,000 Ml IVPB PRN PRN Hypoglycemia Protocol Micafungin Sodium 100 mg/ 100 mls @ 100 mls/hr 08/01/20 13:20 08/04/20 09:09 Sodium Chloride IVPB 08/14/20 23:59 Infused DAILY [facility] Infusion Insulin Aspart 2 - 5 units 07/29/20 08:00 08/04/20 11:15 Novolog SUB-Q Not Given TIDWM [facility]
[2020-08-04] MEDS: metFORMIN HCL 500 MG TABLET 1000 MG PO (16:25)
[2020-08-04 16:31] LABS: Glucose Point of Care 175 (65-105)
[2020-08-04 20:00] LABS: Glucose Point of Care 143 (65-105)
[2020-08-04] MEDS: PANTOPRAZOLE 40 MG TABLET PO (20:34)
[2020-08-04 21:59] VITALS: BP 142/57; PULSE 54; RESP 18; TEMP 35.9; O2SAT 98
[2020-08-05] MEDS: ACETAMINOPHEN 325 MG TABLET 650 MG PO ×2 (00:32→23:58)
[2020-08-05 03:50] LABS: Basophils Absolute Auto 0.1 K/mm3 (0.0-0.1); Basophils Percent Auto 1.3 % (0.2-1.2); Eosinophils Absolute Auto 0.4 K/mm3 (0-0.3); Eosinophils Percent Auto 6.3 % (0-4.4); Hematocrit 30.6 % (37.0-47.0); Hemoglobin 9.1 g/dL (12.0-15.0); Immature Granulocyte Absolute 0.02 K/mm3 (0.00-0.031); Immature Granulocyte Percent A 0.3 % (0-0.5); Lymphocytes Absolute Auto 2.21 K/mm3 (0.9-3.2); Lymphocytes Percent Auto 35.8 % (18.3-44.2); Mean Corpuscular HGB Conc 29.7 g/dl (32-36); Mean Corpuscular Hemoglobin 27.3 pg (26-34); Mean Corpuscular Volume 91.9 fl (80-100); Mean Platelet Volume 9.3 fl (7.4-10.4); Monocytes Absolute Auto 0.7 K/mm3 (0.1-0.6); Monocytes Percent Auto 11.3 % (2.6-8.5); Neutrophils Absolute Auto 2.8 K/mm3 (1.3-6.7); Platelet Count Result 384 k/mm3 (150-375); Red Blood Count 3.33 M/mm3 (4.2-5.4); Red Cell Distribution Width 16.5 % (11.5-14.5); White Blood Count 6.2 K/mm3 (4.5-10.0)
[2020-08-05 04:03] LABS: Anion Gap 6 mmol/L (8-16); Blood Urea Nitrogen 14 mg/dL (7-17); Calcium 9.2 mg/dL (8.4-10.2); Carbon Dioxide 33 mmol/L (22-30); Chloride 97 mmol/L (98-107); Estimated CRCL calculation 45 ml/min; Estimated Glomerular Filt Rate > 60; Glucose 134 mg/dL (65-105); Potassium 4.8 mmol/L (3.4-5.0); Sodium 136 mmol/L (137-145)
[2020-08-05] MEDS: SALINE LOCK FLUSH 20 ML IV PUSH (04:30)
[2020-08-05] MEDS: CALCIUM CARBONATE (TUMS) 500 MG (200 MG ELEMENTAL) PO ×2 (04:34→14:25)
[2020-08-05 05:27] VITALS: BP 180/57; PULSE 59; RESP 18; TEMP 36.1; O2SAT 100
[2020-08-05] MEDS: LEVOTHYROXINE SODIUM 75 MCG TABLET PO (05:55)
[2020-08-05] MEDS: SALINE LOCK FLUSH 10 ML IV PUSH ×3 (05:55→22:00)
[2020-08-05 06:14] VITALS: BP 140/60
[2020-08-05 07:56] LABS: Glucose Point of Care 114 (65-105)
[2020-08-05] MEDS: polyethylene glycoL 3350 17 GM POWD.PACK PO (09:01)
[2020-08-05] MEDS: PANTOPRAZOLE 40 MG TABLET PO ×2 (09:01→21:20)
[2020-08-05] MEDS: metFORMIN HCL 500 MG TABLET 1000 MG PO ×2 (09:02→16:32)
[2020-08-05] MEDS: FERROUS SULFATE 324 MG TABLET PO (09:02)
[2020-08-05] MEDS: amLODIPine BESYLATE 5 MG TABLET 10 MG PO (09:02)
[2020-08-05] MEDS: MAGNESIUM OXIDE 200 MG TABLET PO ×2 (09:03→21:20)
[2020-08-05] MEDS: lisinopriL 20 MG TABLET PO ×2 (09:03→16:32)
[2020-08-05] MEDS: cloNIDine HCL 0.1 MG TABLET PO ×2 (09:03→16:32)
[2020-08-05] MEDS: INSULIN GLARGINE (*BKC) 100 UNITS/ML 10 UNITS SUB-Q (09:06)
[2020-08-05] MEDS: MICAFUNGIN SODIUM 100 MG in SODIUM CHLORIDE 0.9% IV 100 ML IVPB (09:13)
--- NOTE | 2020-08-05 10:44 | PM.PNGS ---
Progress Note: A&P Assessment and Plan (1) Gastric outlet obstruction: Code(s): K31.1 - Adult hypertrophic pyloric stenosis Status: Acute Assessment and Plan: Since this is not complete will not immediately proceed to surgery. Also will need to await the biopsies --- preliminary result showed some fungal elements on Gram stain. Final studies showed Blanca Galbrata. Anatomic biopsy showed no evidence of malignancy. Since it does not I would certainly would recommend conservative management in this elderly female who is somewhat frail. She has multiple medical comorbidities including diabetes, hypertension, and history of atrial fibrillation. She has shown that over the weekend she has been able to tolerate a blenderized diet. Continue the high-dose Protonix and consult ID regarding the possibility that a fungus is involved in inflammatory changes at the ulcer site. Certainly will have to monitor her oral intake and see if she can take enough calories in a liquid or blenderized manner to allow the ulcer to heal and see whether not this stricture will resolve. Believe a good trial of conservative management is reasonable for this elderly lady with multiple comorbidities. I believe Dr. Oliva is planning a follow-up EGD in about 4-6 weeks. Since there is no need for surgery I will sign off at this time. Please call if I can be of further assistance. Thank you for asking to participate in this pleasant patient's care. (2) Pyloric ulcer: Code(s): K25.9 - Gastric ulcer, unspecified as acute or chronic, without hemorrhage or perforation Status: Acute Assessment and Plan: This been present for sometime please see previous EGD reports. Also see gastric outlet obstruction plan above. (3) Atrial fibrillation: Qualifiers: Atrial fibrillation type: unspecified Qualified Code(s): I48.91 - Unspecified atrial fibrillation Code(s): I48.91 - Unspecified atrial fibrillation Status: Acute Assessment and Plan: Because of her other comorbidities apparently she is not on any anticoagulation at this time period (4) Chronic anemia: Code(s): D64.9 - Anemia, unspecified Status: Acute Assessment and Plan: this is been present for least a year. It is perhaps secondary to either iron deficiency or the ulcer. Believe patient receive 1 unit of transfusion during this hospitalization and her hemoglobin now is up to 9.2 or so. (5) Hypothyroidism: Qualifiers: Hypothyroidism type: unspecified Qualified Code(s): E03.9 - Hypothyroidism, unspecified Code(s): E03.9 - Hypothyroidism, unspecified Status: Acute Assessment and Plan: Patient on replacement for this primary care service handling the problem. (6) Essential hypertension: Code(s): I10 - Essential (primary) hypertension Status: Acute Assessment and Plan: Patient on oral medication for this. While NPO primary service is substituting a patch plus IV medication p.r.n. if needed (7) Colon, diverticulosis: Code(s): K57.30 - Diverticulosis of large intestine without perforation or abscess without bleeding Status: Acute Assessment and Plan: patient has been on a high-fiber diet but this will have to be held until the stenosis at her distal stomach is resolved. (8) Constipation: Qualifiers: Constipation type: other constipation type Qualified Code(s): K59.09 - Other constipation Code(s): K59.00 - Constipation, unspecified Status: Acute Assessment and Plan: This most likely use secondary to the use of hydrocodone which she uses along with the Dilaudid that is in the pain pump for her significant back pain. She is on Liziness to try to counteract the effects of the narcotic pain pills on her got. (9) Cholelithiasis: Code(s): K80.20 - Calculus of gallbladder without cholecystitis without o
--- NOTE | 2020-08-05 11:37 | WPDINFPN2 ---
Progress Note: A&P Assessment and Plan (1) Gastric ulcer: Qualifiers: Gastric ulcer chronicity: acute Gastric ulcer complication status: without hemorrhage or perforation Qualified Code(s): K25.3 - Acute gastric ulcer without hemorrhage or perforation Code(s): K25.9 - Gastric ulcer, unspecified as acute or chronic, without hemorrhage or perforation Status: Acute Assessment and Plan: 1. PUD with partial gastric outlet obstruction, at least in part due to biopsy proven invasive fungal infection. C glabrata isolated. 2. CXR = OGD. REC Await histo and blasto serology. Micafungin # 5 / days. Subjective Date/time seen: 08/05/20 11:37 Interval history: no pain, good appetite and oral intake Exam Narrative: Exam Narrative: afebrile GI: Inspection: non-distended GI Palp: Yes Soft to palpation, No Tenderness to palpation present (GI) and No Guarding due to palpation present (GI) Percussion: Yes normal to percussion Objective Data Vital Signs Vital Signs: Vital Signs - 24 hr 08/04/20 14:00 08/04/20 21:59 08/05/20 05:27 Temperature 36.7 C 35.9 C L 36.1 C L Pulse Rate 61 54 L 59 L Respiratory Rate 17 18 18 Blood Pressure 140/53 L 142/57 H 180/57 H Pulse Oximetry 100 98 100 08/05/20 06:14 Temperature Pulse Rate Respiratory Rate Blood Pressure 140/60 Pulse Oximetry Intake/Output Intake/Output: Intake & Output 08/02/20 08/03/20 08/04/20 08/05/20 23:59 23:59 23:59 23:59 Intake Total 2480 660 1270 700 Output Total 2600 2000 2150 1100 Balance -120 -1340 -880 -400 Meds/Results Medications: Active Medications Generic Name Dose Route Start Last Admin Trade Name Freq PRN Reason Stop Dose Admin Acetaminophen 650 mg 07/31/20 00:42 08/05/20 00:32 Tylenol Tablet PO 650 mg Q4H PRN Administration Mild Pain (1-3) or Fever Amlodipine Besylate 10 mg 08/03/20 09:00 08/05/20 09:02 Norvasc PO 10 mg QAM CHAS Administration Calcium Carbonate 200 mg 08/05/20 10:01 Tums PO Q6H PRN Indigestion Clonidine HCl 0.1 mg 08/01/20 10:35 08/05/20 09:03 Catapres PO 0.1 mg BID CHAS Administration Dextrose 12.5 gm 07/28/20 23:03 Dextrose 50% Syringe IV PUSH PRN PRN Hypoglycemia Protocol Ferrous Sulfate 324 mg 08/02/20 08:00 08/05/20 09:02 Ferrous Sulfate PO 324 mg DAILY@0800 CHAS Administration Glucagon 1 mg 07/28/20 23:03 Glucagon For Inj IM PRN PRN Hypoglycemia Protocol Glucose 15 gm 07/28/20 23:03 Glutose 15 PO PRN PRN Hypoglycemia Protocol Hydralazine HCl 10 mg 07/28/20 23:03 08/01/20 21:02 Apresoline Hcl Inj IV PUSH 10 mg Q6H PRN Administration SBP > 165 or DBP > 105 Dextrose 1,000 mls @ 100 mls/hr 07/28/20 23:03 Dextrose 5% 1,000 Ml IVPB PRN PRN Hypoglycemia Protocol Micafungin Sodium 100 mg/ 100 mls @ 100 mls/hr 08/01/20 13:20 08/05/20 10:13 Sodium Chloride IVPB 08/14/20 23:59 Infused DAILY CHAS Infusion Insulin Aspart 2 - 5 units 07/29/20 08:00 08/05/20 08:56 Novolog SUB-Q Not Given TIDWM [facility] Protocol Insulin Glargine 10 units 08/02/20 09:00 08/05/20 09:06 Lantus SUB-Q 10 units QAM CHAS Administration Levothyroxine Sodium 75 mcg 08/02/20 06:30 08/05/20 05:55 Synthroid PO 75 mcg DAILY@0630 CHAS Administration Lisinopril 20 mg 07/31/20 18:10 08/05/20 09:03 Prinivil PO 20 mg BID CHAS Administration Magnesium Oxide 200 mg 08/02/20 09:00 08/05/20 09:03 Mag-Ox PO 200 mg Q12HR CHAS Administration Metformin HCl 1,000 mg 08/04/20 17:00 08/05/20 09:02 Glucophage PO 1,000 mg BIDWM CHAS Administration Nonformulary Drug 0 mcg 07/28/20 23:15 Dilaudid 488.5 Mcg ( XX 08/27/20 23:16 20.4 Mcg/Hr) DIRECTED CHAS Non-Formulary Medication 72 mcg 08/01/20 09:00 Linzes BY MOUTH 08/31/20 09:01 DAILY [facility] Ondansetron HCl 4 mg 07/28/20
[2020-08-05 12:36] LABS: Glucose Point of Care 137 (65-105)
--- NOTE | 2020-08-05 13:07 | WPDGIPROGNO ---
Progress Note: A&P Assessment and Plan (1) Gastric outlet obstruction: Code(s): K31.1 - Adult hypertrophic pyloric stenosis Status: Acute Assessment and Plan: partial GOO secondary to pyloric ulcer she has tolerated diet egd in 6-8 weeks to reassess healing process (2) Fungal infection: Code(s): B49 - Unspecified mycosis Status: Acute Assessment and Plan: bx showed gillian glabatra. she has picc line and will require home health injection of antifungal, clinical social worker on board (3) Stricture, duodenum: Code(s): K31.5 - Obstruction of duodenum Status: Acute Assessment and Plan: due to persistent ulcer with fungal invasion clinically doing better and tolerating diet continue with PPI bid (4) Chronic anemia: Code(s): D64.9 - Anemia, unspecified Status: Acute Assessment and Plan: hb stable after last transfusion (5) Constipation: Qualifiers: Constipation type: other constipation type Qualified Code(s): K59.09 - Other constipation Code(s): K59.00 - Constipation, unspecified Status: Acute Assessment and Plan: using opiods on miralax and low dose of linzess (6) Opioid dependence: Qualifiers: Substance use status: uncomplicated Qualified Code(s): F11.20 - Opioid dependence, uncomplicated Code(s): F11.20 - Opioid dependence, uncomplicated Status: Acute Subjective Date/time seen: 08/05/20 13:07 Interval history: no new complaints, tolerating diet, no abdominal pain or nausea. Review of Systems Review of Systems: All systems reviewed & are unremarkable except as noted in HPI and below Exam Const: General: cooperative, no acute distress, alert and awake Orientation/consciousness: patient oriented x3 HENMT: Mouth: Yes moist mucous membranes Neck: Neck: normal visual inspection and supple Chest: Chest palpation & inspection: normal inspection of the chest Resp: Effort & Inspection: normal respiratory effort Auscultation: clear to auscultation bilaterally Cardio: Jugular venous distension: no JVD Rate: regular rate Rhythm: regular rhythm GI: Inspection: scar (A infra-umbilical mid-line scar that is well-healed and no hernia) GI Palp: No Tenderness to palpation present (GI) and No Guarding due to palpation present (GI) Auscultation: normal bowel sounds Other: pain pump in the LLQ of the abdomen. Skin: General skin exam: no rashes or lesions noted Neuro: General: patient oriented x3 and moves all extremities Cranial nerves: Yes Normal hearing present Speech: normal speech Extrem: General: normal to inspection Psych: Mental Status: mental status grossly normal Speech and movement: Normal speech and movement present Affect: normal affect Objective Data Vital Signs Vital Signs: Vital Signs - 24 hr 08/04/20 14:00 08/04/20 21:59 08/05/20 05:27 Temperature 98.1 F 96.6 F L 96.9 F L Pulse Rate 61 54 L 59 L Respiratory Rate 17 18 18 Blood Pressure 140/53 L 142/57 H 180/57 H Pulse Oximetry 100 98 100 08/05/20 06:14 Temperature Pulse Rate Respiratory Rate Blood Pressure 140/60 Pulse Oximetry Intake/Output Intake/Output: Intake & Output 08/02/20 08/03/20 08/04/20 08/05/20 23:59 23:59 23:59 23:59 Intake Total 2480 660 1270 940 Output Total 2600 2000 2150 1100 Balance -120 -1340 -880 -160 Meds/Results Medications: Active Medications Generic Name Dose Route Start Last Admin Trade Name Freq PRN Reason Stop Dose Admin Acetaminophen 650 mg 07/31/20 00:42 08/05/20 00:32 Tylenol Tablet PO 650 mg Q4H PRN Administration Mild Pain (1-3) or Fever Amlodipine Besylate 10 mg 08/03/20 09:00 08/05/20 09:02 Norvasc PO 10 mg QAM CHAS Administration Calcium Carbonate 200 mg 08/05/20 10:01 Tums PO Q6H PRN Indigestion Clonidine HCl 0.1 mg 08/01/20 10:35 08/05/20 09:03 Catapres PO 0.1 mg BID CHAS Adminis
[2020-08-05 14:00] VITALS: BP 138/56; PULSE 60; RESP 15; TEMP 36.8; O2SAT 98
--- NOTE | 2020-08-05 15:01 | PCDIET ---
Nutrition Follow-Up Complete: Inadequate oral intake R/T poor appetite as evidence by wt loss of 75lbs over the last year Diet advancement with PO intake of 50% or greater of meals and supplements Goal: Goal met. Continue goal. Pt current nutrition is puree+ensure surgery. Nutrition recommendation: agree Last recorded weight is 56 kg (down from assessed wt of 57.1kg) Bowel Motility: 08/03 Labs Reviewed:Glucose 134, Na 136 Meds Noted: Miralax, protonix, zofran, synthroid, mg oxide, insulin, Fe, tums, metformin Additional Notes: Appetite is good. 82% po intake. Diet appropriate, puree. We will continue to monitor PO intake, wt, diet, GI fx every five days.
[2020-08-05 16:21] LABS: Blastomyces Antibody Negative (Negative)
[2020-08-05 16:31] LABS: Glucose Point of Care 76 (65-105)
--- NOTE | 2020-08-05 17:07 | PM.IMPN ---
Progress Note: A&P Assessment and Plan (1) Gastric ulcer: Qualifiers: Gastric ulcer chronicity: acute Gastric ulcer complication status: without hemorrhage or perforation Qualified Code(s): K25.3 - Acute gastric ulcer without hemorrhage or perforation Code(s): K25.9 - Gastric ulcer, unspecified as acute or chronic, without hemorrhage or perforation Status: Acute Assessment and Plan: -------patient had a known gastric ulcer in presented with abdominal distension. EGD by Dr. Seay showed a large ulcer with moderate stenosis causing a partial gastric outlet obstruction. Biopsies indicate possible fungal infection and she is on antifungal therapy IV. She has seen Dr. smith who recommended total 14 day course and we are waiting on insurance authorization so she can be discharged home with this. Hopefully this will be soon. Continue diet modification and PPI therapy. (2) Fungal infection: Code(s): B49 - Unspecified mycosis Status: Acute Assessment and Plan: ------Gastric ulcer biopsy sent for fungal culture now growing Blanca glabrata. Blood fungal culture pending. Continue Micafungin (day 5 of 14). Care coordination helping with discharge planning and we are just waiting on authorization for the medication at this point. (3) Chronic anemia: Code(s): D64.9 - Anemia, unspecified Status: Acute Assessment and Plan: -----Hgb low but stable at 9.1 Received 1 unit packed RBC red cells 08/01. No evidence of acute bleeding. Iron panel is suggestive of iron deficiency anemia. Continue iron supplementation and monitor CBC. (4) Essential hypertension: Code(s): I10 - Essential (primary) hypertension Status: Acute Assessment and Plan: ----- bp 138/56. On review of previous records, noted that blood pressures have historically been poorly controlled. Continue home clonidine, lisinopril, norvasc (increased dose). 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 Resume metformin. Continue basal insulin. Continue to monitor with Accu-Cheks, cover with SSI. (6) Gastroesophageal reflux disease: Qualifiers: Esophagitis presence: without esophagitis Qualified Code(s): K21.9 - Gastro-esophageal reflux disease without esophagitis Code(s): K21.9 - Gastro-esophageal reflux disease without esophagitis Status: Acute Assessment and Plan: -----See above, Protonix BID. (7) Chronic back pain: Qualifiers: Back pain location: back pain in unspecified location Back pain laterality: unspecified Qualified Code(s): M54.9 - Dorsalgia, unspecified; G89.29 - Other chronic pain Code(s): M54.9 - Dorsalgia, unspecified; G89.29 - Other chronic pain Status: Acute Assessment and Plan: ------Intrathecal pain pump with Dilaudid for treatment of chronic lower back pain and can continue Tylenol. (8) Hypothyroidism: Qualifiers: Hypothyroidism type: unspecified Qualified Code(s): E03.9 - Hypothyroidism, unspecified Code(s): E03.9 - Hypothyroidism, unspecified Status: Acute Assessment and Plan: ------Continue levothyroxine. Time Spent With Patient Time with patient: 25 - 35 minutes Subjective Date/time seen: 08/05/20 17:07 Interval history: Pt is a 80-year-old female here for gastric ulcer with outlet obstruction. Patient was seen today and is doing well. She is on a pureed diet and overall feels okay. She is ready to go home. Pt denies nausea, vomiting, feve
[2020-08-05 17:49] LABS: Glucose Point of Care 146 (65-105)
[2020-08-05 21:35] VITALS: BP 143/75; PULSE 63; RESP 16; TEMP 36.5; O2SAT 99
[2020-08-05 21:51] LABS: Glucose Point of Care 98 (65-105)
[2020-08-05 21:51] LABS: Glucose Point of Care 67 (65-105)
[2020-08-06 04:43] VITALS: BP 171/66; PULSE 59; RESP 16; TEMP 36.1; O2SAT 100
[2020-08-06] MEDS: LEVOTHYROXINE SODIUM 75 MCG TABLET PO (05:42)
[2020-08-06] MEDS: SALINE LOCK FLUSH 10 ML IV PUSH ×2 (05:43→13:28)
[2020-08-06] MEDS: hydrALAZINE HCL 20 MG/ML VIAL 10 MG IV PUSH (06:00)
[2020-08-06 06:33] VITALS: BP 142/57
[2020-08-06 07:44] LABS: Glucose Point of Care 93 (65-105)
[2020-08-06] MEDS: amLODIPine BESYLATE 5 MG TABLET 10 MG PO (08:14)
[2020-08-06] MEDS: MAGNESIUM OXIDE 200 MG TABLET PO (08:14)
[2020-08-06] MEDS: FERROUS SULFATE 324 MG TABLET PO (08:14)
[2020-08-06] MEDS: lisinopriL 20 MG TABLET PO (08:14)
[2020-08-06] MEDS: MICAFUNGIN SODIUM 100 MG in SODIUM CHLORIDE 0.9% IV 100 ML IVPB (08:14)
[2020-08-06] MEDS: cloNIDine HCL 0.1 MG TABLET PO (08:14)
[2020-08-06] MEDS: PANTOPRAZOLE 40 MG TABLET PO (08:14)
[2020-08-06] MEDS: metFORMIN HCL 500 MG TABLET 1000 MG PO (08:14)
--- NOTE | 2020-08-06 10:34 | WPDGIPROGNO ---
Progress Note: A&P Assessment and Plan (1) Gastric outlet obstruction: Code(s): K31.1 - Adult hypertrophic pyloric stenosis Status: Acute Assessment and Plan: partial GOO secondary to pyloric ulcer but tolerating pureed diet with ensure no contraindications to discharge egd in 6-8 weeks to reassess healing process (will arrange) (2) Fungal infection: Code(s): B49 - Unspecified mycosis Status: Acute Assessment and Plan: bx showed gillian glabatra. she has picc line and will require home health injection of antifungal, social work lecturer on board and awaiting insurance so she can go home (3) Stricture, duodenum: Code(s): K31.5 - Obstruction of duodenum Status: Acute Assessment and Plan: due to persistent ulcer with fungal invasion clinically doing better and tolerating diet continue with PPI bid (4) Chronic anemia: Code(s): D64.9 - Anemia, unspecified Status: Acute Assessment and Plan: hb stable after last transfusion (5) Constipation: Qualifiers: Constipation type: other constipation type Qualified Code(s): K59.09 - Other constipation Code(s): K59.00 - Constipation, unspecified Status: Acute Assessment and Plan: using opiods on miralax and low dose of linzess (6) Opioid dependence: Qualifiers: Substance use status: uncomplicated Qualified Code(s): F11.20 - Opioid dependence, uncomplicated Code(s): F11.20 - Opioid dependence, uncomplicated Status: Acute Subjective Date/time seen: 08/06/20 10:34 Interval history: she is tolerating diet, no nausea and feeling great. Review of Systems Review of Systems: All systems reviewed & are unremarkable except as noted in HPI and below Exam Const: General: cooperative, no acute distress, alert and awake Orientation/consciousness: patient oriented x3 HENMT: Mouth: Yes moist mucous membranes Neck: Neck: normal visual inspection and supple Chest: Chest palpation & inspection: normal inspection of the chest Resp: Effort & Inspection: normal respiratory effort Auscultation: clear to auscultation bilaterally Cardio: Jugular venous distension: no JVD Rate: regular rate Rhythm: regular rhythm GI: GI Palp: No Tenderness to palpation present (GI) and No Guarding due to palpation present (GI) Auscultation: normal bowel sounds Other: pain pump in the LLQ of the abdomen. Skin: General skin exam: no rashes or lesions noted Neuro: General: patient oriented x3 and moves all extremities Cranial nerves: Yes Normal hearing present Speech: normal speech Extrem: General: normal to inspection Psych: Mental Status: mental status grossly normal Speech and movement: Normal speech and movement present Affect: normal affect Objective Data Vital Signs Vital Signs: Vital Signs - 24 hr 08/05/20 14:00 08/05/20 21:35 08/06/20 04:43 Temperature 98.2 F 97.7 F 97.0 F L Pulse Rate 60 63 59 L Respiratory Rate 16 Blood Pressure 138/56 L 143/75 H 171/66 H Pulse Oximetry 98 99 100 08/06/20 06:33 Temperature Pulse Rate Respiratory Rate Blood Pressure 142/57 H Pulse Oximetry Intake/Output Intake/Output: Intake & Output 08/03/20 08/04/20 08/05/20 08/06/20 23:59 23:59 23:59 23:59 Intake Total 660 1270 1480 450 Output Total 2000 2150 2550 300 Balance -1340 -880 -1070 150 Meds/Results Medications: Active Medications Generic Name Dose Route Start Last Admin Trade Name Freq PRN Reason Stop Dose Admin Acetaminophen 650 mg 07/31/20 00:42 08/05/20 23:58 Tylenol Tablet PO 650 mg Q4H PRN Administration Mild Pain (1-3) or Fever Amlodipine Besylate 10 mg 08/03/20 09:00 08/06/20 08:14 Norvasc PO 10 mg QAM CHAS Administration Calcium Carbonate 200 mg 08/05/20 10:01 08/05/20 14:25 Tums PO 200 mg Q6H PRN Administration Indigestion Clonidine HCl 0.1 mg 08/01/20 10:35 08/06/20 08:14 Ca
--- NOTE | 2020-08-06 11:52 | PM.DS ---
DS: Admitting Diagnosis Admitting Diagnosis Admitting Diagnosis: Abdominal and back pain. DS: Discharge Diagnosis Discharge Diagnosis (1) Gastric ulcer: Qualifiers: Gastric ulcer chronicity: acute Gastric ulcer complication status: without hemorrhage or perforation Qualified Code(s): K25.3 - Acute gastric ulcer without hemorrhage or perforation Code(s): K25.9 - Gastric ulcer, unspecified as acute or chronic, without hemorrhage or perforation Status: Acute Assessment and Plan: -------patient had a known gastric ulcer who presented with abdominal distension/worsening pain. EGD by Dr. Seay showed a large ulcer with moderate stenosis causing a partial gastric outlet obstruction. Biopsies indicate possible fungal infection and she is on antifungal therapy IV which she will complete at home. Continue diet modification with pureed diet and supplements and PPI therapy. (2) Fungal infection: Code(s): B49 - Unspecified mycosis Status: Acute Assessment and Plan: ------Gastric ulcer biopsy sent for fungal culture now growing Blanca glabrata. Blood fungal culture pending. Continue Micafungin (day 6 of 14). Care coordination helping with discharge planning and we are just waiting on authorization for the medication at this point. (3) Chronic anemia: Code(s): D64.9 - Anemia, unspecified Status: Acute Assessment and Plan: -----Hgb low but stable at 9.1 Received 1 unit packed RBC red cells 08/01. No evidence of acute bleeding. Iron panel is suggestive of iron deficiency anemia. Continue iron supplementation and monitor CBC. (4) Essential hypertension: Code(s): I10 - Essential (primary) hypertension Status: Acute Assessment and Plan: ----- bp 134/47. On review of previous records, noted that blood pressures have historically been poorly controlled. Continue home clonidine, lisinopril, norvasc (increased dose). 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 Resume metformin. Continue basal insulin. Continue to monitor with Accu-Cheks, cover with SSI. (6) Gastroesophageal reflux disease: Qualifiers: Esophagitis presence: without esophagitis Qualified Code(s): K21.9 - Gastro-esophageal reflux disease without esophagitis Code(s): K21.9 - Gastro-esophageal reflux disease without esophagitis Status: Acute Assessment and Plan: -----See above, Protonix BID. (7) Chronic back pain: Qualifiers: Back pain location: back pain in unspecified location Back pain laterality: unspecified Qualified Code(s): M54.9 - Dorsalgia, unspecified; G89.29 - Other chronic pain Code(s): M54.9 - Dorsalgia, unspecified; G89.29 - Other chronic pain Status: Acute Assessment and Plan: ------Intrathecal pain pump with Dilaudid for treatment of chronic lower back pain and can continue Tylenol. (8) Hypothyroidism: Qualifiers: Hypothyroidism type: unspecified Qualified Code(s): E03.9 - Hypothyroidism, unspecified Code(s): E03.9 - Hypothyroidism, unspecified Status: Acute Assessment and Plan: ------Continue levothyroxine. DS: Summary Hospital Course Reason for hospitalization: Gastric ulcer, outlet obstruction Hospital Course: Patient is an 80-year-old female for back pain and abdominal pain but no nausea or vomiting found to have a stricture in the 1st portion of her duodenum from a possible ulcer in the gastric antrum. No acute findings on the thoracic/l
[2020-08-06 12:03] LABS: Glucose Point of Care 84 (65-105)
[2020-08-06 14:00] VITALS: BP 134/47; PULSE 80; RESP 18; TEMP 36.7; O2SAT 99
== END 2020-08-06 15:20 | disposition home health service (06) | DRG 384 ==
LOC: ANHED 16:13 → ANH2MED 16:24
PROVIDERS: Family Medicine; Internal Medicine; Internal Medicine Gastroenterology; Internal Medicine Infectious Disease; Physician Assistant; Admitting Provider Internal Medicine; Emergency Provider Emergency Medicine; PCP Family Medicine; Visit Provider Physician Assistant
PROC: 0DJ08ZZ Inspection of Upper Intestinal Tract, Via Natural or Artificial Opening Endoscopic (ICD-10-PCS; CPT 43235; principal; 2020-07-29 13:30)
DX: K25.3 Acute gastric ulcer without hemorrhage or perforation (principal); B37.89 Other sites of candidiasis; K31.5 Obstruction of duodenum; K31.1 Adult hypertrophic pyloric stenosis; E87.1 Hypo-osmolality and hyponatremia; F11.20 Opioid dependence, uncomplicated; D50.9 Iron deficiency anemia, unspecified; Z23 Encounter for immunization; K21.9 Gastro-esophageal reflux disease without esophagitis; K31.84 Gastroparesis; K80.20 Calculus of gallbladder without cholecystitis without obstruction; K57.30 Diverticulosis of large intestine without perforation or abscess without bleeding; K59.09 Other constipation; I48.91 Unspecified atrial fibrillation; I10 Essential (primary) hypertension; E11.42 Type 2 diabetes mellitus with diabetic polyneuropathy; R63.4 Abnormal weight loss; E03.9 Hypothyroidism, unspecified; E78.5 Hyperlipidemia, unspecified; M48.061 Spinal stenosis, lumbar region without neurogenic claudication; G89.29 Other chronic pain; Z79.4 Long term (current) use of insulin; Z79.899 Other long term (current) drug therapy; Z85.3 Personal history of malignant neoplasm of breast; Z96.653 Presence of artificial knee joint, bilateral; Z96.89 Presence of other specified functional implants; Z98.1 Arthrodesis status
CPT/HCPCS: 36415; 36430; 36569; 71046; 72129; 72132; 74018; 74019; 74177; 80048; 80053; 81001; 82274; 82607; 82728; 82746; 83036; 83540; 83550; 83690; 83735; 84100; 84134; 84295; 84443; 84466; 84484; 85014; 85018; 85025; 86403; 86612; 86850; 86900; 86901; 86923; 87102; 87103; 87106; 87206; 87385; 88305; 90471; 90686; 93005; 96360; 99285; A9270; C1751; C9113; G0008; J0131; J0360; J1756; J1815; J2248; J2405; J2704; J3475; J7030; J7040; J7050; J7120; P9016; Q9967

== ENCOUNTER 2020-09-27 01:24 | Outpatient (CLI) | payer OTHER, SELFPAY ==
[2020-09-27 18:04] LABS: SARS-CoV-2 RNA PCR Negative
== END 2020-09-27 01:25 | disposition home or self-care (01) ==
LOC: ANHCOVIDDT 01:24
PROVIDERS: PCP Family Medicine; Visit Provider Internal Medicine Gastroenterology
DX: Z01.812 Encounter for preprocedural laboratory examination (principal); Z20.828 Contact with and (suspected) exposure to other viral communicable diseases
CPT/HCPCS: 87635; C9803; U0003

== ENCOUNTER 2020-09-30 01:38 | Day surgery (SDC) | payer OTHER, SELFPAY ==
[2020-09-26 09:30] VITALS: BMI 22.5
--- NOTE | 2020-09-30 07:06 | WPDANESEPPF ---
Anes - Initial Pre Proc Eval Procedure: Operation Date: 09/30/20 11:00 Proposed Procedures p Esophagogastroduodenoscopy - Raymundo Nova MD Date/Time: 09/30/20 07:06 Surgeon: Raymundo Nova MD Pre Op Diagnosis: Adult Hypertrophic Pyeloric Stenosis Patient Data Age: 80 Gender: F Height: 1.63 m Weight: 59.5 kg Allergies Allergy/AdvReac Type Severity Reaction Status Date / Time No Known Allergies Allergy Verified 09/30/20 10:13 Home Medications Medication Instructions Recorded Confirmed Type cetirizine 10 mg tablet 10 mg PO DAILY 11/23/19 09/26/20 History oxycodone-acetaminophen 1 tablet PO TID 01/25/20 09/26/20 History levothyroxine 75 mcg tablet 75 mcg PO DAILY #90 tablet 04/21/20 09/26/20 Rx trazodone 100 mg PO HS 04/28/20 09/26/20 History clonidine HCl 0.1 mg tablet 0.1 mg PO BID #180 tablet 05/05/20 09/26/20 Rx metformin 1,000 mg tablet 1,000 mg PO BID #180 tablet 06/05/20 09/26/20 Rx Centrum Silver 1 tablet PO DAILY 07/28/20 09/26/20 History Dilaudid 20.4 mcg CONTINUOUS SUB-Q INFUSN 07/28/20 09/26/20 History (VIA WEARABLE INJECTR) USEASDIRECTD acetaminophen [Tylenol Arthritis 650 mg PO DAILY PRN 07/28/20 09/26/20 History Pain] ascorbic acid (vitamin C) [Vitamin 1,000 mg PO DAILY 07/28/20 09/26/20 History C] atorvastatin 40 mg PO DAILY 07/28/20 09/26/20 History amlodipine [Norvasc] 10 mg PO QAM #30 tablet 08/06/20 09/26/20 Rx ferrous sulfate 324 mg PO DAILY@0800 #30 tablet 08/06/20 09/26/20 Rx magnesium oxide 200 mg PO Q12HR #60 tablet 08/06/20 09/26/20 Rx pantoprazole 40 mg PO Q12HR #60 tablet 08/06/20 09/26/20 Rx lisinopril 40 mg tablet 20 mg PO BID #90 tablet 09/11/20 09/26/20 Rx metoclopramide HCl 10 mg tablet 10 mg PO Q6H PRN #360 tablet 09/15/20 09/26/20 Rx lactulose 20 gram/30 mL oral 20 g PO BID #2880 ml 09/16/20 09/26/20 Rx solution amitriptyline 25 mg tablet 25 mg PO HS #90 tablet 09/22/20 09/26/20 Rx Patient hx anesthesia problems: none Family hx anesthesia problems: none PMFSH Past Medical History Medical History Arteriosclerosis of both carotid arteries Arthritis Atrial fibrillation Cancer of left breast (~1999) Status post chemotherapy and mastectomy with lymph node dissection. Cerebral atherosclerosis Cholelithiasis Chronic anemia Chronic back pain Secondary to degenerative disc disease, stenosis, and spondylosis. She has a pain pump in situ. CVA (cerebral vascular accident) Depression Diverticulosis Essential hypertension Fungal infection Gastric outlet obstruction Gastric ulcer Gastric ulcer Gastroesophageal reflux disease Hyperlipidemia Hypothyroidism Iron deficiency anemia secondary to blood loss (chronic) Opioid dependence Secondary to chronic back pain. 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 Surgical History Surgical History History of bilateral knee arthroplasty With revision of right knee. History of bladder surgery bladder suspension History of hysterectomy History of left mastectomy (~1999) History of spinal surgery L4-L5 fusion. Cervical spine surgery x2. Family History Family History Mother Diabetes mellitus Patient's mother is Hypertension Father Myocardial infarct Patient's father is Hypertension Acute myocardial infarction Asthma Diabetes mellitus Sibling Diabetes mellitus Sibling No problems noted. Other Family history of cardiovascular disease Family history of heart disease in male family member before age 55 Social History Social History (Updated 09/22/20 @ 15:04 by Davina Machado)
[2020-09-30] MEDS: LACTATED RINGERS 1,000 ML 150 ML IV CONT (10:05)
[2020-09-30 10:10] LABS: Glucose Point of Care 143 (65-105)
[2020-09-30 10:11] VITALS: BP 149/65; PULSE 101; RESP 20; TEMP 36.6; O2SAT 97; BMI 20.3
--- NOTE | 2020-09-30 11:37 | PM.HPGS ---
History of Present Illness History of Present Illness Consent: Risks, benefits, and alternatives have been discussed and questions answered. Patient agrees to proceed with procedure. 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 during previous hospitalization, here to reassess Review of Systems Constitutional: Constitutional: Denies headache(s) and Denies weakness Eyes: Eyes: Denies blurry vision ENT: Reports Normal hearing present, Denies headache(s) and Denies neck pain Cardiovascular: Cardiovascular: Denies chest pain and Denies dyspnea Respiratory: Respiratory: Denies dyspnea Gastrointestinal: Gastrointestinal: Reports no additional gastrointestinal complaints Genitourinary: Genitourinary: Denies dysuria Musculoskeletal: Musculoskeletal: Denies neck pain Integumentary/Breasts: Skin/Breast: Denies dry skin Neurologic: Reports Normal hearing present, Denies headache(s) and Denies weakness Psychiatric: Psychiatric: Denies anxiety Endocrine: Endocrine: Denies change in body appearance Hematologic/Lymphatic: Hematologic/Lymphatic: Denies easy bleeding Allergic/Immunologic: Allergic/Immunologic: Denies urticaria PMFSH Past Medical History Medical History Arteriosclerosis of both carotid arteries Arthritis Atrial fibrillation Cancer of left breast (~1999) Status post chemotherapy and mastectomy with lymph node dissection. Cerebral atherosclerosis Cholelithiasis Chronic anemia Chronic back pain Secondary to degenerative disc disease, stenosis, and spondylosis. She has a pain pump in situ. CVA (cerebral vascular accident) Depression Diverticulosis Essential hypertension Fungal infection Gastric outlet obstruction Gastric ulcer Gastric ulcer Gastroesophageal reflux disease Hyperlipidemia Hypothyroidism Iron deficiency anemia secondary to blood loss (chronic) Opioid dependence Secondary to chronic back pain. 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 Surgical History Surgical History History of bilateral knee arthroplasty With revision of right knee. History of bladder surgery bladder suspension History of hysterectomy History of left mastectomy (~1999) History of spinal surgery L4-L5 fusion. Cervical spine surgery x2. Family History Family History Mother Diabetes mellitus Patient's mother is Hypertension Father Myocardial infarct Patient's father is Hypertension Acute myocardial infarction Asthma Diabetes mellitus Sibling Diabetes mellitus Sibling No problems noted. Other Family history of cardiovascular disease Family history of heart disease in male family member before age 55 Social History Social History (Updated 09/22/20 @ 15:04 by Davina Machado) Social History: The patient lives in [place] which her son and grandson. She has a total of 7 children. Her son, Belkis, is her surrogate decision maker and she wishes to be a full code. 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 She denies alcohol, tobacco, and drug use. 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 smoker Second hand tobacco smoke exposure: No Alcohol intake: never Substance use: never Substance use type: does not use Living arrangements: with family Gender identity (if verbalized by the patient): Female Spiritual care concerns: No Meds Home Medications and Allergies Home Medications Medication Instructions Recorded
[2020-09-30 11:39] VITALS: BP 129/61; PULSE 85; RESP 23; O2SAT 98
[2020-09-30 11:49] VITALS: BP 140/90; PULSE 78; RESP 23; O2SAT 98
[2020-09-30 11:59] VITALS: BP 136/78; PULSE 76; RESP 22; O2SAT 98
== END 2020-09-30 12:25 | disposition home or self-care (01) ==
PROVIDERS: PCP Family Medicine; Visit Provider Internal Medicine Gastroenterology
PROC: 0DJ08ZZ Inspection of Upper Intestinal Tract, Via Natural or Artificial Opening Endoscopic (ICD-10-PCS; CPT 43235; principal; 2020-09-30 11:00)
DX: K25.7 Chronic gastric ulcer without hemorrhage or perforation (principal); K31.1 Adult hypertrophic pyloric stenosis; I65.23 Occlusion and stenosis of bilateral carotid arteries; I48.20 Chronic atrial fibrillation, unspecified; I67.2 Cerebral atherosclerosis; I10 Essential (primary) hypertension; K21.9 Gastro-esophageal reflux disease without esophagitis; K57.30 Diverticulosis of large intestine without perforation or abscess without bleeding; K80.20 Calculus of gallbladder without cholecystitis without obstruction; E78.5 Hyperlipidemia, unspecified; E11.42 Type 2 diabetes mellitus with diabetic polyneuropathy; E03.9 Hypothyroidism, unspecified; D50.0 Iron deficiency anemia secondary to blood loss (chronic); M81.0 Age-related osteoporosis without current pathological fracture; M47.819 Spondylosis without myelopathy or radiculopathy, site unspecified; M48.00 Spinal stenosis, site unspecified; F32.9 Major depressive disorder, single episode, unspecified; Z86.73 Personal history of transient ischemic attack (TIA), and cerebral infarction without residual deficits; Z85.3 Personal history of malignant neoplasm of breast; Z98.1 Arthrodesis status; Z96.89 Presence of other specified functional implants
CPT/HCPCS: 43239; 87102; 87206; 88305; J2001; J2704; J7120

== ENCOUNTER 2020-10-01 16:20 | Inpatient (IN) | payer OTHER, SELFPAY ==
[2020-10-01] VITALS (9 sets, daily range): BP systolic 118–162; BP diastolic 72–119; PULSE 75–183; RESP 24–44; TEMP 35.7–36.3; O2SAT 36–98
--- NOTE | ~2020-10-01 | XR_ITS ---
XR abdomen NG/feed tube insert DATE: 10/01/2020 22:37 INDICATION: Abdominal pain, perforated ulcer/pneumoperitoneum and hemoperitoneum. NG tube placement. TECHNIQUE: Portable upright AP view COMPARISON: None FINDINGS: The NG tube makes a U-turn in the lower thorax, with the distal tip directed cephalad, not included in this examination. Intraperitoneal free air. IMPRESSION: Malpositioned nasogastric tube repositioning is recommended. Intraperitoneal free air Reviewed, dictated and finalized at [facility]. Reviewed, dictated and finalized at location A. ACTER IMPERSONATOR
--- NOTE | ~2020-10-01 | CT_ITS ---
EXAMINATION: CT abdomen pelvis wo con DATE: 10/01/2020 20:26 INDICATION: Intraperitoneal free air TECHNIQUE: Computed tomography (CT) of the abdomen and pelvis was performed without intravenous contr ast. Automated exposure control and iterative reconstruction technique were employed. Exam dose: 633 .47 mGy-cm total exam DLP. COMPARISON: 08/17/2020 CT abdomen pelvis with IV contrast material. FINDINGS: Heart size is within normal range. No pericardial or pleural effusion. There is mild infilt rate and/atelectasis in the right lower lobe. Cholelithiasis. No hepatic, splenic, pancreatic, adrenal space-occupying mass lesion. Probable 7 mm l ower pole right renal cyst. No hydroureteronephrosis. There is prominent pneumoperitoneum. There is moderate hemoperitoneum. There is prominent distention of the stomach as well as thickening of the wall of the stomach and pro ximal duodenum suggesting gastritis, duodenitis. The pneumoperitoneum and moderately large hemoperito neum are likely secondary to perforated distal gastric or duodenal ulcer. There is diffuse circumferential wall thickening of the proximal and mid jejunum of unknown etiology. Consider infection, inflammation or ischemic change. There is severe atherosclerotic calcification of the abdominal aorta and branches including mesenteri c and celiac arteries, in addition to renal artery calcification, iliac artery calcification. No abdo joelle aortic aneurysm. No intraperitoneal or retroperitoneal or pelvic mass lesion or adenopathy is n oted. The urinary bladder is unremarkable. The uterus appears to be surgically absent. There is a prominent of fecal material within the colon. There are numerous diverticula of the colon; no CT evidence of diverticulitis is evident. Diffuse osteopenia. Prominent bilateral hip osteoarthritis, especially on the left. T10 vertebral body hemangioma. Grade 1 anterolisthesis at L3-4 associated with prominent degenerative change noted at the apophyseal joints of the lumbar and lumbosacral spine. Status post interbody spinal fusion at L4-5. Moderately prominent degenerative disc disease at L5-S1. Small fat-containing right inguinal hernia. IMPRESSION: Prominent pneumoperitoneum and moderate hemoperitoneum likely due to perforated distal g astric or duodenal ulcer Prominent distention of the stomach. Small bowel wall thickening, nonspecific; differential diagnosis includes infection, inflammation, is chemia Cholelithiasis Diverticulosis of the colon Reviewed, dictated and finalized at [facility]. Reviewed, dictated and finalized at location A. L PICKLING EQUIPMENT OPERATOR IMPRESSION: Prominent pneumoperitoneum and moderate hemoperitoneum likely due to perforated distal gastric or duodenal ulcer Prominent distention of the stomach. Small bowel wall thickening, nonspecific; differential diagnosis includes infec tion, inflammation, ischemia Cholelithiasis Diverticulosis of the colon
--- NOTE | ~2020-10-01 | CT_ITS ---
EXAMINATION: CTA chest PE protocol DATE: 10/01/2020 18:35 INDICATION: Shortness of breath. Elevated d-dimer. TECHNIQUE: Computed tomography angiography (CTA) of the chest was performed with 100 mL Omnipaque-350 intravenous contrast timed to evaluate the pulmonary arteries. Coronal maximum intensity projection 3D-reconstructions were created by the technologist. Automated exposure control and iterative reconst ruction technique were employed. Exam dose: 244.66 mGy-cm total exam DLP. COMPARISON: 07/30/2022 view chest FINDINGS: There is diagnostic contrast enhancement of the pulmonary arteries; no evidence of pulmonar y embolism. No hilar or mediastinal mass lesion or lymphadenopathy. Normal heart size. No pericardial or pleural effusion. There is aortic ectasia and calcification. Coronary artery calcification. Calcified left hilar nodes consistent with old granulomatous disease. Mild bilateral apical scarring. No pulmonary infiltrate or consolidation. There is mild discoid atele ctasis or scarring in the right lower lobe. There is incidental finding of moderate ascites in the upper abdomen. Intraperitoneal free air. If there has not been recent surgical intervention, ruptured hollow abdomin al viscus must be considered. The stomach is distended with fluid, with prominent gastric air-fluid l evel. Diffuse osteopenia. Posterior healed right seventh and eighth rib fracture deformities. There is anterolisthesis and degenerative disc disease at C7-T1. Hemangioma T10 vertebral body. IMPRESSION: No evidence of pulmonary embolism Mild discoid atelectasis or scarring in the right lower lobe, mild bilateral apical scarring Moderate ascites is noted in the upper abdomen Intraperitoneal free air; if there has not been recent abdominal surgery, consider ruptured hollow in tra-abdominal viscus Reviewed, dictated and finalized at [facility]. Reviewed, dictated and finalized at location A. EL REAMER IMPRESSION: No evidence of pulmonary embolism Mild discoid atelectasis or scarring in the right lower lobe, mild bilateral ap ical scarring Moderate ascites is noted in the upper abdomen Intraperitoneal free air; if there has not been recent abdominal surgery, consi srinivas ruptured hollow intra-abdominal viscus
--- NOTE | ~2020-10-01 | CT_ITS ---
EXAMINATION: CT brain wo con DATE: 10/01/2020 17:06 INDICATION: Altered mental status. TECHNIQUE: Computed tomography (CT) of the head was performed without intravenous contrast. The mA wa s adjusted according to patient size. Iterative reconstruction technique was employed. The dose-lengt h product was 529.67 mGy-cm. COMPARISON: Head CT 08/14/2019 FINDINGS: There is no intracranial hemorrhage, acute infarction, or abnormal intracranial mass lesion . There are scattered areas of low attenuation in the cerebral white matter, which is within normal l imits for the patient's age. The ventricles are normal in size. There are likely changes of ocular l ens replacement surgeries. There is mild mucosal thickening in the ethmoid sinuses. The mastoid air c ells are normal. IMPRESSION: 1. Normal aging brain. Reviewed, dictated and finalized at location B. OGRAPHY TECHNOLOGIST IMPRESSION: 1. Normal aging brain.
--- NOTE | 2020-10-01 16:44 | PC.NURSE ---
Pt given 1 mg narcan at 1640- some response noted. 20 mg carvedilol at 1645. RT to bedside at 1645. Hr to 119 at 1646.
--- NOTE | 2020-10-01 16:45 | ED.AMS ---
HPI - Altered Mental Status General Chief Complaint: Altered Mental Status Stated Complaint: LETHARGY Time Seen by Provider: 10/01/20 16:26 Source: EMS Mode of arrival: EMS Limitations: no limitations and altered mental status History of Present Illness HPI narrative: Patient is an 80-year-old female brought in by EMS due to decreased responsiveness. Per EMS, patient recently had an upper endoscopy done in this hospital and was discharged yesterday. Patient was given Narcan by EMS, patient remained unresponsive with no effect. Patient was given Narcan upon arrival here in the emergency room again no effect. Related Data Home Medications Medication Instructions Recorded Confirmed cetirizine 10 mg tablet 10 mg PO DAILY 11/23/19 09/26/20 oxycodone-acetaminophen 1 tablet PO TID 01/25/20 09/26/20 trazodone 100 mg PO HS 04/28/20 09/26/20 Centrum Silver 1 tablet PO DAILY 07/28/20 09/26/20 Dilaudid 20.4 mcg CONTINUOUS SUB-Q INFUSN 07/28/20 09/26/20 (VIA WEARABLE INJECTR) USEASDIRECTD acetaminophen [Tylenol Arthritis 650 mg PO DAILY PRN 07/28/20 09/26/20 Pain] ascorbic acid (vitamin C) [Vitamin 1,000 mg PO DAILY 07/28/20 09/26/20 C] atorvastatin 40 mg PO DAILY 07/28/20 09/26/20 Allergies Allergy/AdvReac Type Severity Reaction Status Date / Time No Known Allergies Allergy Verified 09/30/20 10:13 Review of Systems Review of Systems: ROS unobtainable: Yes unobtainable due to mental status [facility] Past Medical History Medical History (Updated 10/02/20 @ 00:51 by Mik Brooks MD) Arteriosclerosis of both carotid arteries Arthritis Atrial fibrillation Cancer of left breast (~1999) Status post chemotherapy and mastectomy with lymph node dissection. Cerebral atherosclerosis Cholelithiasis Chronic anemia Chronic back pain Secondary to degenerative disc disease, stenosis, and spondylosis. She has a pain pump in situ. CVA (cerebral vascular accident) Depression Diverticulosis Drug induced constipation Essential hypertension Fungal infection Gastric outlet obstruction Gastric ulcer Gastric ulcer Gastroesophageal reflux disease Hyperlipidemia Hypothyroidism Iron deficiency anemia secondary to blood loss (chronic) Opioid dependence Secondary to chronic back pain. 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 Surgical History Surgical History History of bilateral knee arthroplasty With revision of right knee. History of bladder surgery bladder suspension History of hysterectomy History of left mastectomy (~2000) History of spinal surgery L4-L5 fusion. Cervical spine surgery x2. Family History Family History Mother Diabetes mellitus Patient's mother is Hypertension Father Myocardial infarct Patient's father is Hypertension Acute myocardial infarction Asthma Diabetes mellitus Sibling Diabetes mellitus Sibling No problems noted. Other Family history of cardiovascular disease Family history of heart disease in male family member before age 55 Social History Social History (Updated 09/22/20 @ 15:04 by Davina Machado) Social History: The patient lives in [place] which her son and grandson. She has a total of 7 children. Her son, Belkis, is her surrogate decision maker and she wishes to be a full code. 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. She denies alcohol, tobacco, and drug use. 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 smoker Second hand tobacco smoke exposure: No Alcohol intake: never Substance use: never Substance use type: does not use Gender identity (if verbalized by the
[2020-10-01] MEDS: NALOXONE HCL INJ 2 MG/2 ML AMP (16:48)
[2020-10-01] MEDS: dilTIAZem HCl INJ 25 MG/5 ML VIAL (16:48)
[2020-10-01 16:57] LABS: Alveolar/Arterial O2 Gradient 148.5 mmHg; Base Excess ABG -14.8 mEq/l (+/-2.0); Carboxyhemoglobin 0.6 % THb (0-2.0); Fractional Inspired Oxygen 44 %; HCO3 ABG 6.5 mEq/l (22.0-26.0); Methemoglobin ABG 0.3 %THb (0-1.5); Oxygen Content ABG 19.7 %vol (16.0-22.0); Oxyhemoglobin 97.5 % THb (90.0-100.0); PO2 ABG 152.8 mmHg (80.0-100.0); PO2 FiO2 Ratio Arterial Blood 3.47 %; Reduced Hemoglobin 1.6 %THb (0-5.0); Total Hemoglobin 14.2 g/dL (12.0-18.0); pH ABG 7.394 (7.350-7.450)
[2020-10-01 16:58] LABS: Device NASAL CANNULA; Modified Allen's Test Pass; PCO2 ABG 10.9 mmHg (35.0-45.0); Site Drawn RIGHT RADIAL
[2020-10-01 17:15] LABS: Hematocrit 44.4 % (37.0-47.0); Hemoglobin 13.8 g/dL (12.0-15.0); Mean Corpuscular HGB Conc 31.1 g/dl (32-36); Mean Corpuscular Hemoglobin 30.6 pg (26-34); Mean Corpuscular Volume 98.4 fl (80-100); Platelet Count Result 498 k/mm3 (150-375); Red Blood Count 4.51 M/mm3 (4.2-5.4); Red Cell Distribution Width 17.8 % (11.5-14.5); White Blood Count 3.5 K/mm3 (4.5-10.0)
[2020-10-01 17:24] LABS: INR 1.1
[2020-10-01 17:25] LABS: Partial Thromboplastin Time 33.7 SECONDS (22.3-36.8)
[2020-10-01 17:39] LABS: Band Neutrophils Percent 20 % (0-6); Lymphocytes Absolute Manual 1.08 K/mm3 (1.1-4.5); Monocytes Absolute Manual 0.28 K/mm3 (0.1-0.90); Monocytes Percent Manual 8 % (3-9); Neutrophils Absolute Manual 2.13 K/mm3 (1.7-7.2); Neutrophils Percent Manual 41 % (46-73); Platelet Estimate Increased (Adequate); Total Cells Counted 100
[2020-10-01 17:40] LABS: Anisocytosis 2+ (NORMAL); Hypochromasia 1+ (NORMAL)
[2020-10-01 17:41] LABS: D Dimer 4.22 ug/mL (<0.48)
[2020-10-01 17:49] LABS: Lactic Acid Reflex 9.9 mmol/L (0.7-2.1)
--- NOTE | 2020-10-01 18:42 | ECG_ITS ---
Measurements Intervals [place] Rate: 152 P: -18 [place]: 84 QRS: 59 QRSD: 80 T: 186 QT: 252 QTc: 401 Interpretive Statements SINUS TACHYCARDIA WITH INTERMITTENT RUNS OF ATRIAL TACHCARDIA WITH FAST VENTRICULAR RESPONSE ST-T WAVE ABNORMALITY IN ANTEROLAT/INF LEADS- CONSIDER ISCHEMIA BASELINE ARTIFACT- I, II, III ABNORMAL ECG Electronically Signed On 10-02-2020 7:54:43 STRATEGY SPECIALIST by Cooper Last D.O.
[2020-10-01 19:04] LABS: Albumin Level 3.5 g/dL (3.5-5.1); Alkaline Phosphatase 68 U/L (38-126); Anion Gap 26 mmol/L (8-16); Aspartate Amino Transferase 21 U/L (14-36); Bilirubin,Total 0.2 mg/dL (0.2-1.3); Blood Urea Nitrogen 18 mg/dL (7-17); Calcium 10.2 mg/dL (8.4-10.2); Carbon Dioxide 8 mmol/L (22-30); Chloride 103 mmol/L (98-107); Estimated CRCL calculation 32 ml/min; Estimated Glomerular Filt Rate 53; Glucose 313 mg/dL (65-105); Potassium 3.6 mmol/L (3.4-5.0); Sodium 137 mmol/L (137-145)
--- NOTE | 2020-10-01 19:06 | PC.NURSE ---
Os on high 60s-70s. Hard to maintain a good O@ reading. EDP made aware, verbal orders to call RT to put her on high flow NC
[2020-10-01 19:14] LABS: Troponin I 0.258 ng/mL (0.000-0.034)
--- NOTE | 2020-10-01 19:14 | PC.NURSE ---
I overrode LR to give. When brought to room, I saw it was d/c.
[2020-10-01 19:21] LABS: Alanine Aminotransferase 17 U/L (4-35)
--- NOTE | 2020-10-01 19:21 | PC.NURSE ---
Spoke with ED provider, about EKG order. He said that was the order for the initial EKG that was don fidencio her arrival. I aske [facility] if the LR was d/c and he said not but he is putting anew order in for her
--- NOTE | 2020-10-01 19:24 | PC.NURSE ---
RT not putting her on high flow NC currently due to no acces to sterile water, she was making EDP aware.
--- NOTE | 2020-10-01 19:33 | PCSTNOTE ---
CALLED TO ROOM FOR [facility] SET UP. UNABLE TO OBTAIN PULSE OX DUE TO PT PERFUSION. SPOKE WITH DR SELLERS REGARDING PREVIOUS ABG WHICH SHOWED CRITICALLY LOW CO2 OF 10.7 AND BICARB OF 6.5 PT PLACED ON 4L NC DUE TO PaO2 OF 152.[address] SELLERS WAS AGREEABLE. DANISHA TOMPKINS AWARE OF CONVERSATION AND PATIENT STATUS.
[2020-10-01 20:12] LABS: Reflex Lactic Acid Yes or No Add Lactic
[2020-10-01] MEDS: ASPIRIN 300 MG SUPPOSITORY RECTAL (20:59)
[2020-10-01 21:01] LABS: CRP 17.3 mg/dL (<1.0)
--- NOTE | 2020-10-01 22:12 | PC.NURSE ---
CALLED [facility] AT [phone] FOR GENERAL SURGERY AND HOSPITALIST
--- NOTE | 2020-10-01 23:02 | PC.NURSE ---
called [facility] to request transfer to surgery. [facility] has no beds.
--- NOTE | 2020-10-01 23:17 | PC.NURSE ---
called [facility] in [place] to request a transfer for surgery. [facility] has no beds for that.
[2020-10-02] MEDS: HYDROmorphone HCL INJ (*CRX) 1 MG/ML SYR IV PUSH (01:06)
[2020-10-02] MEDS: LACTATED RINGERS 1,000 ML 125 ML IV CONT (01:06)
[2020-10-02] MEDS: ONDANSETRON INJ 4 MG/2 ML VIAL IV PUSH (01:06)
--- NOTE | 2020-10-02 02:03 | PM.IMHP ---
H&P: HPI History of Present Illness Date/Time: 10/02/20 02:03 Chief complaint: Sepsis, Perforated Duodenal/Gastric Ulcer, Narrative: This is an unfortunate 80-year-old Diabetic female with known past medical history of chronic hypertension, hypothyroidism, peptic ulcer disease, and previous breast cancer who just underwent EGD 2 days ago for partial gastric outlet obstruction secondary to pyloric stenosis. The patient presented to our emergency room this evening secondary to decreased responsiveness. On arrival to the emergency room the patient was complaining of diffuse abdominal pain. The patient was evaluated emergency room and found to be severely septic and have an acute abdomen. CT abdomen pelvis was obtained which demonstrated prominent pneumoperitoneum and moderate hemoperitoneum likely due to perforated distal gastric or duodenal ulcer, prominent distention of the stomach, and small bowel wall thickening. Routine labs that were obtained showed leukopenia with a white blood cell count of 3500, metabolic acidosis with an increased anion gap of 26, lactic acidosis with a lactic acid of 10. ER provider consulted general surgeon, Dr. Ford at approximately 10:00 p.m. and discussed the case with him in detail. Dr. Ford advised the ER provider to place NG tube and transfer the patient to another hospital. ER provider attempted to transfer the patient and surgeon at another facility advised that the patient be evaluated immediately by our surgeon for possible emergent surgery. ER provider relayed this information to Dr. Ford who again verbalized that he would not perform emergent surgery on the patient as there were no available ICU beds for the patient. After approximately 2 hours of ER provider attempting to transfer the patient, both the patient and her son decided to make her comfort care and verbalized that they no longer wanted surgery or aggressive treatment. The patient was made DNR and comfort care measures were initiated. On my encounter with the patient she is medicated and has received Dilaudid IV. She appears somewhat confused and does not know why she is here. The patient her current state cannot answer any more my questions and her son has already left. Review of Systems Review of Systems: ROS unobtainable: Yes unobtainable due to mental status PMFSH Past Medical History Medical History Arteriosclerosis of both carotid arteries Arthritis Atrial fibrillation Cancer of left breast (~1999) Status post chemotherapy and mastectomy with lymph node dissection. Cerebral atherosclerosis Cholelithiasis Chronic anemia Chronic back pain Secondary to degenerative disc disease, stenosis, and spondylosis. She has a pain pump in situ. CVA (cerebral vascular accident) Depression Diverticulosis Drug induced constipation Essential hypertension Fungal infection Gastric outlet obstruction Gastric ulcer Gastric ulcer Gastroesophageal reflux disease Hyperlipidemia Hypothyroidism Iron deficiency anemia secondary to blood loss (chronic) Opioid dependence Secondary to chronic back pain. 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 Surgical History Surgical History History of bilateral knee arthroplasty With revision of right knee. History of bladder surgery bladder suspension History of hysterectomy History of left mastectomy (~1999) History of spinal surgery L4-L5 fusion. Cervical spine surgery x2. Family History Family History Mother Diabetes mellitus Patient's mother is Hypertension Father Myocardial infarct Patient's fat
[2020-10-02 02:05] VITALS: BP 101/56; PULSE 73; RESP 16; TEMP 36.3; O2SAT 95
--- NOTE | 2020-10-02 02:10 | ADMGEN ---
This patient, Brandi Shepherd, was admitted to 3 Med Surg Room 302-01. Patient/family oriented to hospital policies and general routines including ID bracelet, bed and alarms, visiting hours, pain management, procedures, bathroom and other care routines, personal items, smoking policy, room service/diet, and visiting hours. Information on how to activate the Rapid Response Team has been discussed. Patient/Family are encouraged to report perceived risks to care and to ask questions if they do not understand what they are told or what they should do.
[2020-10-02] MEDS: LORazepam INJ (*CRX) 2 MG/ML VIAL 1 MG IV PUSH (03:19)
--- NOTE | 2020-10-02 05:11 | PM.DDS ---
Discharge Sum: Prov Provider Primary care physician: Alia Ceja MD Admitting provider: Qamar Simpson MD Discharge Sum: Diag Contributing Factors (1) Perforated abdominal viscus: (2) Septic shock: (3) Hemoperitoneum: (4) Metabolic acidosis with increased anion gap and accumulation of organic acids: (5) Pyloric ulcer: Discharge Sum: Summary Date and Time Date of admission: 10/02/20 00:52 Date of : 10/02/20 Time of : 04:10 Summary Details: This is an unfortunate 80-year-old Diabetic female with known past medical history of chronic hypertension, hypothyroidism, peptic ulcer disease, and previous breast cancer who just underwent EGD 2 days ago for partial gastric outlet obstruction secondary to pyloric stenosis. The patient presented to our emergency room this evening secondary to decreased responsiveness. On arrival to the emergency room the patient was complaining of diffuse abdominal pain. The patient was evaluated emergency room and found to be severely septic and have an acute abdomen. CT abdomen pelvis was obtained which demonstrated prominent pneumoperitoneum and moderate hemoperitoneum likely due to perforated distal gastric or duodenal ulcer, prominent distention of the stomach, and small bowel wall thickening. Routine labs that were obtained showed leukopenia with a white blood cell count of 3500, metabolic acidosis with an increased anion gap of 26, lactic acidosis with a lactic acid of 10. ER provider consulted general surgeon, Dr. Ford at approximately 10:00 p.m. and discussed the case with him in detail. Dr. Fodr advised the ER provider to place NG tube and transfer the patient to another hospital. ER provider attempted to transfer the patient and surgeon at another facility advised that the patient be evaluated immediately by our surgeon for possible emergent surgery. ER provider relayed this information to Dr. Ford who again verbalized that he would not perform emergent surgery on the patient as there were no available ICU beds for the patient. After approximately 2 hours of ER provider attempting to transfer the patient, both the patient and her son decided to make her comfort care and verbalized that they no longer wanted surgery or aggressive treatment. The patient was made DNR and comfort care measures were initiated. On my encounter with the patient she is medicated and has received Dilaudid IV. She appears somewhat confused and does not know why she is here. The patient her current state cannot answer any more my questions and her son has already left. The patient shortly after arriving to the medical floor. Additional Data Confirmation of as documented by pronouncing clinician: no pulse, no respirations, no heart sounds and pupils fixed and dilated Family: contacted Attending/PCP notified?: Yes Attending physician: Qamar Simpson MD Was code activated?: No Autopsy requested?: No forensic examiner notified?: No Organ bank notified?: No Advance directives: Yes Hospice patient?: Yes
--- NOTE | 2020-10-02 09:04 | PC.NURSE ---
0500 Family returned phone call and was made aware that patient had . 0600 Family arrived to see patient.
== END 2020-10-02 08:40 | disposition expired | DRG 871 ==
LOC: ANHED 10-02 00:52 → ANH3MEDSUR 10-02 01:07
PROVIDERS: Admitting Provider Family Medicine; Emergency Provider Emergency Medicine; PCP Family Medicine; Visit Provider Family Medicine
DX: A41.9 Sepsis, unspecified organism (principal); R65.21 Severe sepsis with septic shock; K66.1 Hemoperitoneum; E87.2 Acidosis; K31.1 Adult hypertrophic pyloric stenosis; R19.8 Other specified symptoms and signs involving the digestive system and abdomen; K25.9 Gastric ulcer, unspecified as acute or chronic, without hemorrhage or perforation; I48.91 Unspecified atrial fibrillation; F41.9 Anxiety disorder, unspecified; D50.0 Iron deficiency anemia secondary to blood loss (chronic); I10 Essential (primary) hypertension; E11.42 Type 2 diabetes mellitus with diabetic polyneuropathy; K21.9 Gastro-esophageal reflux disease without esophagitis; E03.9 Hypothyroidism, unspecified; E78.5 Hyperlipidemia, unspecified; Z66 Do not resuscitate; Z96.653 Presence of artificial knee joint, bilateral; Z79.84 Long term (current) use of oral hypoglycemic drugs; Z79.899 Other long term (current) drug therapy; Z85.3 Personal history of malignant neoplasm of breast; Z86.73 Personal history of transient ischemic attack (TIA), and cerebral infarction without residual deficits; Z98.1 Arthrodesis status
CPT/HCPCS: 36415; 36600; 70450; 71275; 74176; 80053; 82375; 82805; 83050; 83605; 84484; 85025; 85380; 85610; 85730; 86140; 86850; 86900; 86901; 87040; 87077; 87102; 87106; 87186; 87206; 88305; 93005; 96361; 96365; 96367; 96375; 99285; A9270; J1170; J2001; J2060; J2310; J2405; J2543; J2704; J3370; J7120; Q9967